=== PATIENT | female | born 1975 | race Caucasian/White ===

== ENCOUNTER → 2020-07-16 13:28 | Outpatient (BNVA) | payer OTHER, SELFPAY | PROVIDERS: PCP Internal Medicine; Visit Provider Advanced Practice Midwife | DX: Z01.419 Encounter for gynecological examination (general) (routine) without abnormal findings (principal); N91.1 Secondary amenorrhea | CPT/HCPCS: 99212 ==

== ENCOUNTER 2020-08-18 15:26 | Outpatient (REF) | payer OTHER, SELFPAY ==
[2020-08-18 16:10] LABS: COVID-19 Test Negative (Negative); IDNOW Serial# 55D5AD1C
== END 2020-08-18 15:27 | disposition home or self-care (01) ==
LOC: HO.LAB 15:26
PROVIDERS: Visit Provider Internal Medicine
DX: Z20.822 Contact with and (suspected) exposure to COVID-19 (principal)
CPT/HCPCS: 36415; 87635; C9803

== ENCOUNTER 2020-08-27 10:42 | Outpatient (REF) | payer OTHER, SELFPAY ==
--- NOTE | ~2020-08-27 | US_ITS ---
[facility] TRANSVAGINAL CLINICAL INFORMATION: Secondary amenorrhea. COMPARISON: Previous pelvic ultrasound October 2012 TECHNIQUE: Transabdominal and transvaginal pelvic ultrasound was performed. Transvaginal exam was performed for better visualization of the uterus and ovaries. FINDINGS: The uterus is variable position depending on the fullness of the bladder. The uterus is normal in size and shape and measures 5.1 x 2.1 x 3.5 cm in dimension. There is a 5 x 3 x 5 mm hyperechoic density in the right posterior uterine body questionable for a small intramural fibroid. No other focal uterine lesion is seen. Endometrial thickness is normal measuring 0.3 cm. The cervix is normal. The right ovary measures 3.6 x 1.6 x 1.5 cm. There is a 3 mm nonspecific echogenic focus in the right ovary. The left ovary has been removed. There is no fluid in the pelvis. US/US transvaginal IMPRESSION: Small echogenic focus in the uterus, question representing a small fibroid and small echogenic focus in the right ovary. The left ovary has been removed.
--- NOTE | ~2020-08-27 | US_ITS ---
EXAMINATION: [facility] COMPLETE US TRANSVAGINAL CLINICAL INFORMATION: Secondary amenorrhea. COMPARISON: Previous pelvic ultrasound October 2012 TECHNIQUE: Transabdominal and transvaginal pelvic ultrasound was performed. Transvaginal exam was performed for better visualization of the uterus and ovaries. FINDINGS: The uterus is variable position depending on the fullness of the bladder. The uterus is normal in size and shape and measures 5.1 x 2.1 x 3.5 cm in dimension. There is a 5 x 3 x 5 mm hyperechoic density in the right posterior uterine body questionable for a small intramural fibroid. No other focal uterine lesion is seen. Endometrial thickness is normal measuring 0.3 cm. The cervix is normal. The right ovary measures 3.6 x 1.6 x 1.5 cm. There is a 3 mm nonspecific echogenic focus in the right ovary. The left ovary has been removed. There is no fluid in the pelvis. US/US pelvic complete IMPRESSION: Small echogenic focus in the uterus, question representing a small fibroid and small echogenic focus in the right ovary. The left ovary has been removed.
== END 2020-08-27 10:43 | disposition home or self-care (01) ==
LOC: HO.US 10:42
PROVIDERS: PCP Internal Medicine; Visit Provider Advanced Practice Midwife
DX: N91.1 Secondary amenorrhea (principal)
CPT/HCPCS: 76830; 76856

== ENCOUNTER 2020-09-01 15:22 | Outpatient (REF) | payer OTHER, SELFPAY ==
[2020-09-01 17:18] LABS: Thyroid Stimulating Hormone 1.91 uIU/mL (0.32-4.0)
[2020-09-02 07:16] LABS: Follicle Stimulating Hormone 31.9 mIU/mL
== END 2020-09-01 15:23 | disposition home or self-care (01) ==
LOC: HO.LAB 15:22
PROVIDERS: PCP Internal Medicine; Visit Provider Advanced Practice Midwife
DX: N91.1 Secondary amenorrhea (principal)
CPT/HCPCS: 36415; 83001; 84443

== ENCOUNTER → 2020-09-03 10:28 | Outpatient (BNVA) | payer OTHER, SELFPAY | PROVIDERS: Visit Provider Advanced Practice Midwife ==

== ENCOUNTER 2020-09-10 13:07 | Outpatient (REF) | payer OTHER, SELFPAY ==
[2020-09-10 15:22] LABS: HCG Quantitative 3 mIU/mL
[2020-09-11 07:27] LABS: Lutenizing Hormone 25.1 mIU/mL; Prolactin 6.4 ng/mL
== END 2020-09-10 13:08 | disposition home or self-care (01) ==
LOC: HO.LAB 13:07
PROVIDERS: PCP Internal Medicine; Visit Provider Obstetrics & Gynecology
DX: N91.1 Secondary amenorrhea (principal); N95.0 Postmenopausal bleeding
CPT/HCPCS: 36415; 83002; 84146; 84702; 99212

== ENCOUNTER → 2020-09-16 11:40 | Outpatient (BNVA) | payer OTHER, SELFPAY | PROVIDERS: PCP Internal Medicine; Visit Provider Obstetrics & Gynecology ==

== ENCOUNTER 2020-09-17 13:23 | Outpatient (REF) | payer OTHER, SELFPAY ==
--- NOTE | ~2020-09-17 | MM_ITS ---
EXAMINATION: MM SCREENING DIGITAL BREAST TOMOSYNTHESIS, BILATERAL CLINICAL INFORMATION: Screening. Asymptomatic. The lifetime risk of breast cancer based on the Tyrer-Cuzick Model is 10.2%. COMPARISON: Mammography: June 03, 2019 and studies dating back to January 25, 2016 TECHNIQUE: Digital breast tomosynthesis is performed in both the craniocaudal and mediolateral oblique views along with computer-aided detection (CAD). Synthesized 2D images are generated from the tomosynthesis. FINDINGS: The breasts are heterogeneously dense, which may obscure small masses (ACR BI-RADS breast composition Category c). There are no significant masses, abnormal calcifications, or other abnormalities. MM/MM tomosynthesis screening BI IMPRESSION: There are no significant changes from prior study. ASSESSMENT: BI-RADS 1: Negative RECOMMENDATION: Routine annual mammography screening. This patient's information was entered into a reminder system with a target due date for their next mammogram.
== END 2020-09-17 13:24 | disposition home or self-care (01) ==
LOC: HO.MAMMO 13:23
PROVIDERS: Visit Provider Obstetrics & Gynecology
DX: Z12.31 Encounter for screening mammogram for malignant neoplasm of breast (principal)
CPT/HCPCS: 77063; 77067

== ENCOUNTER 2021-09-23 12:59 | Outpatient (REF) | payer OTHER, SELFPAY ==
--- NOTE | ~2021-09-23 | MM_ITS ---
EXAMINATION: MM SCREENING DIGITAL BREAST TOMOSYNTHESIS, BILATERAL CLINICAL INFORMATION: Screening. Asymptomatic. The lifetime risk of breast cancer based on the Tyrer-Cuzick Model is 11%. COMPARISON: Mammography: 09/17/2020, 06/03/2019, 04/05/2018 TECHNIQUE: Digital breast tomosynthesis is performed in both the craniocaudal and mediolateral oblique views along with computer-aided detection (CAD). Synthesized 2D images are generated from the tomosynthesis. FINDINGS: There are scattered areas of fibroglandular density (ACR BI-RADS breast composition Category b). There are no significant masses, abnormal calcifications, or other abnormalities. Parenchymal pattern is similar to prior studies. No developing density. No architectural abnormality. No significant changes. MM/MM tomosynthesis screening BI IMPRESSION: No mammographic evidence of malignancy. ASSESSMENT: BI-RADS 1: Negative RECOMMENDATION: Routine annual mammography screening. This patient's information was entered into a reminder system with a target due date for their next mammogram.
== END 2021-09-23 13:00 | disposition home or self-care (01) ==
LOC: HO.MAMMO 12:59
PROVIDERS: PCP Internal Medicine; Visit Provider Internal Medicine
DX: Z12.31 Encounter for screening mammogram for malignant neoplasm of breast (principal)
CPT/HCPCS: 77063; 77067

== ENCOUNTER 2022-08-25 10:51 | Outpatient (REF) | payer OTHER, SELFPAY ==
[2022-08-25 15:14] LABS: CT PCR NOT DETECTED (Not Detect.); NG PCR NOT DETECTED (Not Detect.)
[2022-08-26 08:57] LABS: BV Int Neg Control Negative (Negative); BV Int Pos Control Positive (Positive)
== END 2022-08-25 10:52 | disposition home or self-care (01) ==
LOC: HO.LNP 10:51
PROVIDERS: PCP Internal Medicine; Visit Provider Obstetrics & Gynecology
DX: N89.8 Other specified noninflammatory disorders of vagina (principal)
CPT/HCPCS: 0353U; 87480; 87510; 87660

== ENCOUNTER 2022-09-29 12:37 | Outpatient (REF) | payer OTHER, SELFPAY ==
--- NOTE | ~2022-09-29 | MM_ITS ---
EXAMINATION: MM SCREENING DIGITAL BREAST TOMOSYNTHESIS, BILATERAL CLINICAL INFORMATION: Screening. Asymptomatic. The lifetime risk of breast cancer based on the Tyrer-Cuzick Model is 8%. COMPARISON: Mammography: 09/23/2021, 09/17/2020, 06/03/2019 TECHNIQUE: Digital breast tomosynthesis is performed in both the craniocaudal and mediolateral oblique views along with computer-aided detection (CAD). Synthesized 2D images are generated from the tomosynthesis. FINDINGS: There are scattered areas of fibroglandular density (ACR BI-RADS breast composition Category b). There are no significant masses, abnormal calcifications, or other abnormalities. Parenchymal pattern is similar to prior studies. There is no developing density or architectural abnormality. The axilla and skin contours are unremarkable. No significant changes. MM/MM tomosynthesis screening BI IMPRESSION: No mammographic evidence of malignancy. ASSESSMENT: BI-RADS 1: Negative RECOMMENDATION: Routine annual mammography screening. This patient's information was entered into a reminder system with a target due date for their next mammogram.
== END 2022-09-29 12:38 | disposition home or self-care (01) ==
LOC: HO.MAMMO 12:37
PROVIDERS: PCP Internal Medicine; Visit Provider Internal Medicine
DX: Z12.31 Encounter for screening mammogram for malignant neoplasm of breast (principal)
CPT/HCPCS: 77063; 77067

== ENCOUNTER 2023-01-18 09:27 | Outpatient (AMB) | payer OTHER, SELFPAY ==
[2023-01-18 09:58] VITALS: BP 104/78; BMI 33.3
--- NOTE | 2023-01-18 09:58 | A.OFFVIS_ITS ---
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 The patient was seen few months ago BV panel and GC and chlamydia were negative, was prescribed Terazol 0.8% q.h.s. and Lotrisone cream felt better for few weeks and then the symptoms recurred back. Since then the patient has been using on an of the remainder of the Lotrisone cream and feels better after application of the external cream. No vaginal discharge and no additional symptoms PFSH Medical History Migraine Surgical History Hx of unilateral oophorectomy Hx of section History of hernia surgery Family History Father HTN (hypertension) Diabetes Mother Diabetes HTN (hypertension) Social History Alcohol intake: current Alcohol intake frequency: holidays/special occasions only Gender identity: Female Female Reproductive History Menstrual Age of Menarche: 14 control method: none Date of Mammogram: 09/29/22 Review of Systems Const All systems reviewed & are unremarkable except as noted in HPI and below Physical Exam General: Yes no CVA tenderness External Female Exam: normal external appearance and normal appearance of the urethra Speculum Exam - Vagina: normal appearance of the vagina, normal palpation, no lesions and no masses Speculum Exam - Cervix: normal appearance of the cervix, normal palpation, no lesions, no masses and nontender Bimanual exam- vagina & uterus: normal bimanual exam, normal palpation, uterine size normal, normal palpation, uterine shape normal, No Cervical tenderness present and non-tender Bimanual Exam- Adnexa, other: normal adnexae Back/Spine/Pelvis Back: no CVA tenderness Assessment & Plan Assessment & Plan (1) Vulvovaginal itching: Code(s): L29.2 - Pruritus vulvae Plan: GC/chlamydia with BV panel collected. Discussed with the patient given the fact that her last BV panel did not show any evidence of candidiasis and the patient improved each time she use Lotrisone cream, the diagnosis pointing towards more of allergic dermatitis. Will check GC and chlamydia with BV panel if negative, instructions given the patient to attempt identifying precipitating factor for vulvar contact dermatitis by eliminating different agent in contact with her underwear/laundry/soap or others. All questions answered, the patient verbalized understanding Coding Level of Care Code Est Pt Level 3 (17045) Diagnoses Vulvovaginal itching L29.2
== END 2023-01-18 10:13 | disposition home or self-care (01) ==
PROVIDERS: PCP Internal Medicine; Visit Provider Obstetrics & Gynecology
DX: L29.2 Pruritus vulvae (principal)
CPT/HCPCS: 99213

== ENCOUNTER 2023-01-18 09:27 | Outpatient (REF) | payer OTHER, SELFPAY ==
[2023-01-19 04:51] LABS: CT PCR NOT DETECTED (Not Detect.); NG PCR NOT DETECTED (Not Detect.)
[2023-01-19 11:37] LABS: BV Int Neg Control Negative (Negative); BV Int Pos Control Positive (Positive)
== END 2023-01-18 09:28 | disposition home or self-care (01) ==
LOC: HO.LNP 09:27
PROVIDERS: PCP Internal Medicine; Visit Provider Obstetrics & Gynecology
DX: L29.2 Pruritus vulvae (principal)
CPT/HCPCS: 0353U; 87480; 87510; 87660; 99212

== ENCOUNTER 2023-09-13 09:43 | Outpatient (AMB) | payer OTHER, SELFPAY ==
--- NOTE | 2023-09-13 09:48 | MHC.OFFVIS ---
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 No complaints. Last Pap/HPV was negative in 06/27 Last Mammogram was BI-RADS 1 in 09/27 No previous screening colonoscopy PFSH Medical History Migraine Surgical History Hx of unilateral oophorectomy Hx of section History of hernia surgery Family History Father HTN (hypertension) Diabetes Mother Diabetes HTN (hypertension) Social History Household Members: Family Household Members Other:: Daughter Housing: House Alcohol intake: current Alcohol intake frequency: holidays/special occasions only Patient Tobacco Use Status: Never used Tobacco Current occupational status: unemployed Sexually active: Yes Sexual orientation: Straight/Heterosexual Gender identity: Female Female Reproductive History Menstrual Age of Menarche: 14 Menopause type: natural Total pregnancies: 1 Full term: 1 Number of Living Children: 1 Date of last pap smear: 07/05/19 Date of Mammogram: 09/29/22 Review of Systems Const All systems reviewed & are unremarkable except as noted in HPI and below Card Reports as per HPI Resp Reports as per HPI GI Reports as per HPI and Reports no additional complaints Reports as per HPI Physical Exam Vital Signs: Last Vital Signs BP 124/84 09/13/23 09:49 BMI result Body Mass Index 30.6 Const General: cooperative, healthy appearing and comfortable Chest Chest palpation & inspection: normal inspection of the chest and normal palpation of entire chest wall Breast/axilla inspection: normal inspection of the breasts and normal inspection of the axillae Breast/axilla palpation: normal palpation of the breasts, normal palpation of the axillae and no axillary lymphadenopathy Resp Effort & Inspection: normal respiratory effort Auscultation: clear to auscultation bilaterally Percussion: percussion normal Cardio Palpation: normal PMI Rate: regular rate Rhythm: regular rhythm Heart sounds: no murmurs and no rubs Peripheral pulses: Peripheral pulses 2+ throughout GI Inspection: Yes normal to inspection Palpation (GI): Soft to palpation, nontender, no guarding, not rigid and No hepatosplenomegaly present Percussion: Yes normal to percussion Auscultation: normal bowel sounds Rectal Exam - Female: deferred General: Yes bladder normal to palpation External Female Exam: No lesion Speculum Exam - Vagina: normal appearance of the vagina, normal palpation, normal vaginal discharge and not erythematous Speculum Exam - Cervix: normal appearance of the cervix and normal palpation Bimanual exam- vagina & uterus: normal bimanual exam, normal palpation, uterine size normal, bladder normal to palpation, consistency normal and normal palpation Bimanual Exam- Adnexa, other: normal adnexae, no masses and no tenderness Assessment & Plan Assessment & Plan (1) Well woman exam with routine gynecological exam: Code(s): Z01.419 - Encounter for gynecological examination (general) (routine) without abnormal findings Category: Medical Plan: Cotesting done. Mammogram ordered. Counseled the patient about the recommended dietary allowance of 1000 mg of Calcium & 600 IU of vitamin D. The patient was referred to GI for screening colonoscopy. Instructed the patient to call our office back in case a referral appointment is not scheduled, missed or canceled so that we will assist on rescheduling another appointment, the patient verbalized understanding agreed with the plan. The patient was instructed to perform monthly self-breast exams and to schedule an annual exam in a year; All questions answered and the patient verbalized understanding. Instructed the patient to schedule annual exam in a year Orders: Orders MM tomosynthesis screening BI Today Z12.31 - Encounter for screening mammogram for malignant neoplasm of breast Referrals Gastroenterology Referral Z12.11 - Encounter for screening for malignant neoplasm of colon Coding Level of Care Code Est Pt Prev Care 40-64y(18128) Diagnoses Well woman exam with routine gynecological exam Z01.419
[2023-09-13 09:49] VITALS: BP 124/84; BMI 30.6
== END 2023-09-13 11:33 | disposition home or self-care (01) ==
PROVIDERS: Visit Provider Obstetrics & Gynecology
DX: Z01.419 Encounter for gynecological examination (general) (routine) without abnormal findings (principal)
CPT/HCPCS: 99396

== ENCOUNTER 2023-09-13 09:43 | Outpatient (REF) | payer OTHER, SELFPAY ==
[2023-09-23 03:43] LABS: HPV 16 RNA NOT DETECTED (NOT DETECTED); HPV mRNA E6/E7 rflx Detected (Not Detected)
== END 2023-09-13 09:44 | disposition home or self-care (01) ==
LOC: HO.LNP 09:43
PROVIDERS: Visit Provider Obstetrics & Gynecology
DX: Z01.419 Encounter for gynecological examination (general) (routine) without abnormal findings (principal); Z11.51 Encounter for screening for human papillomavirus (HPV)
CPT/HCPCS: 87624; 87625; 88142; 99396

== ENCOUNTER 2023-10-09 13:44 | Outpatient (REF) | payer OTHER, SELFPAY ==
--- NOTE | ~2023-10-09 | MM_ITS ---
EXAMINATION: MM SCREENING DIGITAL BREAST TOMOSYNTHESIS, BILATERAL CLINICAL INFORMATION: Screening. Asymptomatic. COMPARISON: Mammography: This study is compared with prior exams dating back to 2018. TECHNIQUE: Digital breast tomosynthesis is performed in both the craniocaudal and mediolateral oblique views along with computer-aided detection (CAD). Synthesized 2D images are generated from the tomosynthesis. FINDINGS: There are scattered areas of fibroglandular density (ACR BI-RADS breast composition Category b). There are no significant masses, abnormal calcifications, or other abnormalities. Few, benign, unchanged calcifications are present in each breast. MM/MM tomosynthesis screening BI IMPRESSION: No mammographic evidence of malignancy. ASSESSMENT: BI-RADS BI-RADS 2 - Benign Findings RECOMMENDATION: Routine annual mammography screening. 1 year F/U This examination should not preclude the clinical evaluation of a suspicious palpable abnormality. This patient's information was entered into a reminder system with a target due date for their next mammogram.
== END 2023-10-09 13:45 | disposition home or self-care (01) ==
LOC: HO.MAMMO 13:44
PROVIDERS: PCP Internal Medicine; Visit Provider Obstetrics & Gynecology
DX: Z12.31 Encounter for screening mammogram for malignant neoplasm of breast (principal)
CPT/HCPCS: 77063; 77067

== ENCOUNTER → 2023-10-09 15:00 | Outpatient (BNV) | payer OTHER, SELFPAY | PROVIDERS: PCP Internal Medicine; Visit Provider Radiology Diagnostic Radiology | DX: Z12.31 Encounter for screening mammogram for malignant neoplasm of breast (principal) | CPT/HCPCS: 77063; 77067 ==

== ENCOUNTER 2023-10-12 10:51 | Outpatient (REF) | payer OTHER, SELFPAY | END 2023-10-12 10:52 | disposition home or self-care (01) | LOC: HO.LNP 10:51 | PROVIDERS: PCP Internal Medicine; Visit Provider Obstetrics & Gynecology | DX: R87.610 Atypical squamous cells of undetermined significance on cytologic smear of cervix (ASC-US) (principal); R87.810 Cervical high risk human papillomavirus (HPV) DNA test positive | CPT/HCPCS: 57454; 81025; 88305; 88342; 88360 ==

== ENCOUNTER 2023-10-12 10:51 | Outpatient (AMB) | payer OTHER, SELFPAY ==
[2023-10-12 11:15] VITALS: BP 118/76; BMI 30.4
--- NOTE | 2023-10-12 11:15 | MHC.OFFVIS ---
Vital Signs 10/12/23 11:15 Height 5 ft 5 in Weight 182 lb 15.739 oz BMI 30.4 BP 118/76 Intake Visit Reasons: Colposcopy Suspension Cord Tier Required: No Information Interpreted: non-clinical & clinical Certified Alcohol And Drug Counselor: Certified Alcohol And Drug Counselor Present (Alejandra Nicole DARYL) Accompanied by: Self / Same As Patient Allergies hydrocodone [From Vicodin] Allergy (Mild, Verified 10/12/23 11:24) UNKNOWN latex [Latex] Allergy (Mild, Verified 10/12/23 11:24) RASH carisoprodol Adverse Reaction (Mild, Verified 10/12/23 11:24) NAUSEA & VOMITING, HEADACHES Vicodin Adverse Reaction (Unknown, Uncoded 10/12/23 11:24) vomiting Post menopausal: Yes HPI Comments Details: Presenting for abnormal Pap smear showing [facility] Medical History Migraine Surgical History Hx of unilateral oophorectomy Hx of section History of hernia surgery Family History Father HTN (hypertension) Diabetes Mother Diabetes HTN (hypertension) Social History Household Members: Family Household Members Other:: Daughter Housing: House Alcohol intake: current Alcohol intake frequency: holidays/special occasions only Patient Tobacco Use Status: Never used Tobacco Current occupational status: unemployed Sexual orientation: Straight/Heterosexual Gender identity: Female Female Reproductive History Menstrual Age of Menarche: 14 Physical Exam Vital Signs: BMI result Body Mass Index 30.4 Office Procedures Colposcopy Colposcopy: Pre-Procedure Counseling: Before beginning the procedure, I conducted comprehensive counseling with the patient. We thoroughly discussed the procedure itself, including its details, alternatives, and all associated risks. This included but not limited to the following complications such as bleeding, infection, and injury to the vagina, bladder, and vessels, as well as the potential need for transfusion with all its associated risks. Subsequently, the patient sign the consent. Pap smear result: Ascus/HPV E6/E7 positive, HPV 16/18/45 negative. Urine test in office = Negative Procedure: During the procedure, the following steps were performed: A speculum was inserted, and acetic acid was applied. Colposcopy was conducted, allowing visualization of the transformation zone. Acetowhite lesions were identified at the 9+12+1 o'clock position. Cervical biopsies were obtained from the 9+12+1 o'clock position, followed by an endocervical curettage (ECC). Vaginoscopy of the upper vagina revealed no evidence of aceto-white lesions. Hemostasis was achieved using Monsel solution, and the patient tolerated the procedure well. Post-Procedure Instructions: The patient was advised to promptly contact the office or the after hours answering service or go to the emergency room if experiencing a temperature exceeding 100.4?F, abdominal pain, nausea/vomiting, or bleeding. Additionally, the patient was instructed to abstain from vaginal intercourse and bathtub use. The patient confirmed understanding of these instructions. Discharge Instructions: The patient was instructed to schedule a follow-up appointment in 2 weeks for further evaluation and management. 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 [id number] of cervix including upper vagina with biopsy and ECC Procedure code (CPT) selection complete Results AMB Test Urine AMB Test Urine Negative Last Edit by Alejandra Nicole CMA on 10/12/23 11:25 Assessment & Plan Assessment & Plan (1) ASCUS with positive high risk HPV cervical: Comment: E6 E7 positive, HPV 16/18/45 negative Code(s): R87.610 - Atypical squamous cells of undetermined significance on cytologic smear of cervix (ASC-US); R87.810 - Cervical high risk human papillomavirus (HPV) DNA test positive Category: Medical Plan: Discussed with the patient the result of her abnormal pap, its significance, risk of progression, persistence, and regression. the false positive/negative rate of a Pap smear as a screening test in detecting cervical cancer and the indication for a diagnostic test -colposcopy, biopsy, endocervical curettage. The patient verbalized understanding and agreed with the plan, all questions answered. Colposcopy done, see procedure note Orders: Orders AMB HCG Urine Test Today Z32.02 - Encounter for test, result negative AMB Colposcopy Today R87.610 - Atypical squamous cells of undetermined significance on cytologic smear of cervix (ASC-US), R87.810 - Cervical high risk human papillomavirus (HPV) DNA test positive Coding Level of Care Code Procedure Only Diagnoses ASCUS with positive high risk HPV cervical R87.610; R87.810 CPT Codes Colposcopy - CPT: 51401-[id number] of cervix including upper vagina with biopsy and ECC ([id number])
== END 2023-10-12 11:36 | disposition home or self-care (01) ==
PROVIDERS: PCP Internal Medicine; Visit Provider Obstetrics & Gynecology
DX: R87.610 Atypical squamous cells of undetermined significance on cytologic smear of cervix (ASC-US) (principal); R87.810 Cervical high risk human papillomavirus (HPV) DNA test positive; Z32.02 Encounter for pregnancy test, result negative
CPT/HCPCS: 57454

== ENCOUNTER 2023-11-08 08:50 | Outpatient (AMB) | payer OTHER, SELFPAY ==
--- NOTE | 2023-11-08 08:52 | A.OFFVIS_ITS ---
Vital Signs 11/08/23 08:58 Height 5 ft 5 in Weight 184 lb 4.903 oz BMI 30.7 BP 116/62 Blood Pressure Location Rt brachial Position Sitting Pulse 90 Pulse Source Pulse Oximeter Pulse Oximetry (%) 95 Oxygen Delivery Method Room Air Intake Visit Reasons: Colonoscopy SCreening Intake Note: Kary presents in office today for a scheduled routine colo s/p scrn. CC; Kary was referred by OBGYN (Kami). Pt denies any sx or significant concerns at this time. \ Pt denies any previous hx of colo or egd s/p. 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 female past medical history of asthma is here today for pre colonoscopy screening.? Patient was sent to us by her PCP.? This is her first colonoscopy screening.? Patient denies any gastrointestinal symptoms in the past or at present.? Denies any personal or family history of gastrointestinal disease, colon polyps, or CRC.? Denies history of difficulty with sedation or anesthesia in the past.? Negative for history of sleep apnea.? Denies any history of cardiac, renal, pulmonary, or hepatic disease.?? No history of infectious? diseases like hepatitis A, B, C, HIV or tuberculosis.? Patient is not on any anticoagulation [facility] Medical History Migraine Surgical History Hx of unilateral oophorectomy Hx of section History of hernia surgery Family History Father HTN (hypertension) Diabetes Mother Diabetes HTN (hypertension) Social History Household Members: Family Household Members Other:: Daughter Housing: House Alcohol intake: current Alcohol intake frequency: holidays/special occasions only Patient Tobacco Use Status: Never used Tobacco Current occupational status: unemployed Sexual orientation: Straight/Heterosexual Gender identity: Female Female Reproductive History Menstrual Age of Menarche: 14 Review of Systems Const Denies weight gain and Denies weight loss ENT Reports no additional complaints, Denies dysphagia and Denies odynophagia Card Reports no additional complaints Resp Reports no additional complaints GI Denies abdominal pain, Denies belching, Denies melena, Denies bloating, Denies change in bowel habits, Denies dysphagia, Denies excessive flatus, Denies dyspepsia, Denies heartburn, Denies diarrhea, Denies loose stools, Denies nausea, Denies odynophagia and Denies vomiting Musc Reports no additional complaints Neuro Reports no additional complaints Psych Reports no additional complaints Endo Reports no additional complaints Physical Exam Const General: healthy appearing and no acute distress Nutritional Appearance: obese Orientation/consciousness: patient oriented x3 Resp Effort & Inspection: normal respiratory effort, able to speak in complete sentences, no tracheal deviation and symmetric chest movement Auscultation: clear to auscultation bilaterally Cardio Rate: regular rate GI Inspection: Yes normal to inspection, No distended and Yes obesity Palpation (GI): Soft to palpation, not firm, nontender and No hepatosplenomegaly present Auscultation: normal bowel sounds General: Yes no CVA tenderness Back/Spine/Pelvis Back: no CVA tenderness Skin General skin exam: elasticity normal, turgor normal and dry skin Neuro General: patient oriented x3 Psych Appearance: grossly normal Mental Status: mental status grossly normal Assessment & Plan Assessment & Plan (1) Colon cancer screening: Code(s): Z12.11 - Encounter for screening for malignant neoplasm of colon Category: Medical Plan Patient denies any GI, cardiac or respiratory symptoms.? Denies any issues with anesthesia in the past.? Denies any history of sleep apnea.? No history infectious diseases in the past or present.? Not on any anticoagulation therapy.? No family or personal history of colon cancer or polyps.? Patient denies melena, hematochezia, unintentional weight loss or ribbon like stools.? Discussed at length the pre-procedure,? prep, diet & medications as well as what to expect prior, during and after the procedure.?? Stressed the importance of good bowel prep.? Recommended the use of Vaseline or Calmoseptine OTC & baby wipes with bowel movements to promote comfort.? ?Patient verbalizes understanding and agrees to plan of care.? She was given the opportunity to ask questions and all questions answered.? We will see her after the procedure.? Medications: New bisacodyl (Dulcolax (bisacodyl)) take 4 tabs at noon the day before your colonoscopy 20 mg (4 x 5 mg) PO ONCE 1 day 4 tabs 0RF Z12.11 - Encounter for screening for malignant neoplasm of colon polyethylene glycol 3350 (Miralax) As directed by gastroenterology department at [facility] 238 grams PO ONCE 238 grams 0RF Z12.11 - Encounter for screening for malignant neoplasm of colon Coding Level of Care Code New Pt Level 3 (97556) Diagnoses Colon cancer screening Z12.11 Time Spent (min) 40 Comment 30 minutes spent with patient and additional 10 minutes spent reviewing her records
[2023-11-08 08:58] VITALS: BP 116/62; PULSE 90; O2SAT 95; BMI 30.7
== END 2023-11-08 09:44 | disposition home or self-care (01) ==
PROVIDERS: PCP Internal Medicine; Visit Provider Nurse Practitioner Family
DX: Z12.11 Encounter for screening for malignant neoplasm of colon (principal); Z01.818 Encounter for other preprocedural examination
CPT/HCPCS: 99203

== ENCOUNTER → 2023-11-08 08:50 | Outpatient (BNVA) | payer OTHER, SELFPAY | PROVIDERS: PCP Internal Medicine; Visit Provider Nurse Practitioner Family | DX: Z01.818 Encounter for other preprocedural examination (principal) | CPT/HCPCS: 99202 ==

== ENCOUNTER 2023-11-22 10:49 | Outpatient (AMB) | payer OTHER, SELFPAY ==
--- NOTE | 2023-11-22 11:39 | MHC.OFFVIS ---
Intake Visit Reasons: Colpo Results Allergies hydrocodone [From Vicodin] Allergy (Mild, Verified 11/08/23 08:57) UNKNOWN latex [Latex] Allergy (Mild, Verified 11/08/23 08:57) RASH carisoprodol Adverse Reaction (Mild, Verified 11/08/23 08:57) NAUSEA & VOMITING, HEADACHES Vicodin Adverse Reaction (Unknown, Uncoded 10/12/23 11:24) vomiting HPI Comments Details: Presenting post colpo for follow-up. The patient is doing well with no complaints. The pathology showed the following: A. Endocervix, curettage: Endocervical glandular mucosa and focal squamous epithelium with atrophy and scant focal atypia, not present on deeper levels. B. Cervix, 1:00, biopsy: Squamous mucosa with atrophy and reactive changes; no endocervical glandular component present. C. Cervix, 9:00, biopsy: Endocervical glandular and squamous mucosa with atrophy and reactive changes; negative for dysplasia D. Cervix, 12:00, biopsy: Scant endocervical glandular epithelium and mucus; negative for dysplasia. [facility] Medical History Migraine Surgical History Hx of unilateral oophorectomy Hx of section History of hernia surgery Family History Father HTN (hypertension) Diabetes Mother Diabetes HTN (hypertension) Social History Household Members: Family Household Members Other:: Daughter Housing: House Alcohol intake: current Alcohol intake frequency: holidays/special occasions only Patient Tobacco Use Status: Never used Tobacco Current occupational status: unemployed Sexual orientation: Straight/Heterosexual Gender identity: Female Female Reproductive History Menstrual Age of Menarche: 14 Review of Systems Const All systems reviewed & are unremarkable except as noted in HPI and below Reports as per HPI and Reports no additional complaints GI Reports no additional complaints Reports no additional complaints Assessment & Plan Assessment & Plan (1) ASCUS with positive high risk HPV cervical: Comment: E6 E7 positive, HPV 16/18/45 negative Code(s): R87.610 - Atypical squamous cells of undetermined significance on cytologic smear of cervix (ASC-US); R87.810 - Cervical high risk human papillomavirus (HPV) DNA test positive Category: Medical Plan: Discussed with the patient the pathology results of the colposcopy biopsies & endocervical curettage ( neg). Discussed with the patient the sensitivity specificity, positive and negative predictive value in detecting cervical cancer in addition discussed the regression, persistence and progression rates. Recommended co-testing in 12 months, if cytology and or HPV are abnormal will proceed was colposcopy biopsy and endocervical curettage. Instructions given to the patient to schedule a co test appointment in 1 year. All questions answered the patient verbalized understanding. Coding Level of Care Code Est Pt Level 3 (80706) Diagnoses ASCUS with positive high risk HPV cervical R87.610; R87.810
== END 2023-11-22 12:00 | disposition home or self-care (01) ==
PROVIDERS: PCP Internal Medicine; Visit Provider Obstetrics & Gynecology
DX: R87.610 Atypical squamous cells of undetermined significance on cytologic smear of cervix (ASC-US) (principal); R87.810 Cervical high risk human papillomavirus (HPV) DNA test positive
CPT/HCPCS: 99213

== ENCOUNTER → 2023-11-22 10:49 | Outpatient (BNVA) | payer OTHER, SELFPAY | PROVIDERS: PCP Internal Medicine; Visit Provider Obstetrics & Gynecology | DX: R87.610 Atypical squamous cells of undetermined significance on cytologic smear of cervix (ASC-US) (principal); R87.810 Cervical high risk human papillomavirus (HPV) DNA test positive | CPT/HCPCS: 99212 ==

== ENCOUNTER 2024-05-13 14:37 | Outpatient (AMB) | payer OTHER, SELFPAY ==
--- NOTE | 2024-05-13 14:44 | MHC.PC.OV ---
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 Accompanied by: Self / Same As Patient Allergies hydrocodone [From Vicodin] Allergy (Mild, Verified 05/13/24 14:58) UNKNOWN latex [Latex] Allergy (Mild, Verified 05/13/24 14:58) RASH carisoprodol Adverse Reaction (Mild, Verified 05/13/24 14:58) NAUSEA & VOMITING, HEADACHES Vicodin Adverse Reaction (Unknown, Uncoded 05/13/24 14:58) vomiting Medication List - Last Reconciled 05/13/24 by Erendira Prescott MD bisacodyl (Dulcolax (bisacodyl)) 20 mg (4 x 5 mg) PO ONCE 1 day calcium carbonate (Calcium 500) 500 mg PO DAILY cholecalciferol (vitamin D3) 10 mcg PO DAILY clotrimazole-betamethasone 1-0.05 % 1 appl topical BID 5 days collagen,hydrolyz-ascorbate Ca 1 gram- 10 mg tabs PO omega 9-ppd-hxs-fish oil 1,000 (120-180) mg (Fish Oil) 1 cap PO DAILY polyethylene glycol 3350 (Miralax) 238 grams PO ONCE Tobacco use date assessed: 05/13/24 Dental Screening Dental Screen Date: 05/13/24 Did you have a dental visit in the last 12 months?: Yes Did you have a dental problem in the last 6 months where you did not have access to dental care?: No Was dental information given to patient?: Patient has dentist HPI HPI Comments History of Present Illness Details The patient is a 48-year-old female presenting with back pain and concern for sciatica. She reports that the pain has been present for approximately one year and has progressively worsened, especially with walking. She describes the pain as starting after exercise, predominantly affecting the lower back and radiating to the right leg, with a possible pinching sensation in the buttocks. The pain is sometimes accompanied by numbness in the leg. The patient recalls a history of bulging and herniated discs from an injury over 18 years ago. She does not take pain medication, as previous options have not been effective. She also notes that lying flat on her back exacerbates the pain, and sometimes, it affects her neck. Additionally, she has canceled a previously scheduled colonoscopy due to anxiety about the procedure but has elected to proceed with a Cologuard test. She mentions dribbling when consuming sweets, which she attributes to familial diabetes tendencies. The patient has been actively working to reduce weight, which she attributes to diet and exercise adjustments. [facility] Medical History (Updated 05/13/24 @ 15:17 by Erendira Prescott MD) Migraine Surgical History Hx of unilateral oophorectomy Hx of section History of hernia surgery Family History Father HTN (hypertension) Diabetes Mother Diabetes HTN (hypertension) Social History Household Members: Family Household Members Other:: Daughter Housing: House Alcohol intake: current Alcohol intake frequency: holidays/special occasions only Patient Tobacco Use Status: Never used Tobacco e-Cigarette/Vaping Use: Never Used service: No Current occupational status: unemployed Sexual orientation: Straight/Heterosexual Gender identity: Female Cognitive needs: No Hearing needs: No Vision needs: No Female Reproductive History Menstrual Age of Menarche: 14 Questionnaire PHQ-9 Over the last 2 weeks, how often have you been bothered by any of the following problems? 1. Little interest or pleasure in doing things: not at all 2. Feeling down, depressed, or hopeless: not at all 3. Trouble falling or staying asleep, or sleeping too much: not at all 4. Feeling tired or having little energy: not at all 5. Poor appetite or overeating: not at all 6. Feeling bad about yourself - or that you are a failure or have let yourself or your family down: not at all 7. Trouble concentrating on things, such as reading the newspaper or watching television: not at all 8. Moving or speaking so slowly that other people could have noticed. Or the opposite - being so fidgety or restless that you have been moving around a lot more than usual: not at all 9. Thoughts that you would be better off or of hurting yourself in some way: not at all Total score: 0 Depression Screening Interpretation: Negative Depression Screening Done: Yes 10206 - PHQ-9 Billing: Yes Source: Developed by Drs. Dedrick Schaefer, Sobeida Agustin, Harshad La and colleagues, with an educational annabella from [employer] Thrive Questionnaire Date Thrive assessed: 05/13/24 I am a: Patient What is your living situation today?: I have a steady place to live Within the past 12 months, did the food you bought not last and you didn't have the money to get more?: Never true Within the past 12 months, did you worry whether your food would run out before you got money to buy more?: Never true Do you have trouble paying for medicines?: No Do you have trouble getting transportation to medical appointments?: No Do you have trouble paying your heating and electricity bill?: No Do you have trouble taking care of your child, family member or friend?: No Do you have trouble with day-to-day activities such as bathing, preparing meals, shopping, managing finances, etc.?: No Are you currently unemployed and looking for a job?: No Are you interested in more education?: No Please select the resources that you would like help with: None Currently or been in a relationship where the following occur: No concerns reported THRIVE Score: 0 AUDIT C Alcohol Use Questionnaire (AUDIT-C) 1. How often do you have a drink containing alcohol?: Monthly or less 2. How many drinks containing alcohol do you have on a typical day when you are drinking?: 1 or 2 3. How often do you have six or more drinks on one occasion?: Never Total Score: 1 ADDISON-7 AMB Questionnaire ADDISON-7 Date ADDISON - 7 assessed: 05/13/24 Feeling nervous, anxious, or on edge: 0 = Not at all Not being able to stop or control worryin = Not at all Worrying too much about different things: 0 = Not at all Trouble relaxin = Not at all Being so restless that it is hard to sit still: 0 = Not at all Becoming easily annoyed or irritable: 0 = Not at all Feeling afraid as if something awful might happen: 0 = Not at all Total ADDISON-7 score (0-4 normal; 5-9 mild; 10-14 moderate; 15-21 severe): 0 Source: Developed by Drs. Dedrick Schaefer, Sobeida Agustin, Harshad La and colleagues, with an educational annabella from [employer] ADDISON-7 Assessment Billing ADDISON-7 Assessment Tool: ADDISON-7 Assessment 89655 Review of Systems Const Details: - Musculoskeletal: Reports back pain, right leg pain, and numbness. Denies prior falls. - Neurological: Reports tingling in fingers, feet, and episodes of visual disturbances/presyncope. - Genitourinary: Reports bladder dribbling after consuming sweets. - Gastrointestinal: Denies family history of colon cancer. Physical exam (Primary Care) Vital Signs: Last Vital Signs Pulse 92 05/13/24 14:47 BP 116/60 05/13/24 14:47 Pulse Ox 97 05/13/24 14:47 Oxygen Delivery Method Room Air 05/13/24 14:47 BMI result Body Mass Index 29.1 Tobacco/Smoking Status: Tobacco use Status Patient Tobacco Use Status Never used Tobacco 05/13/24 14:44 Depression Screening Interpretation: Negative Currently or been in a relationship where the following occur: No concerns reported Const Other: General: No confusion Neck: Normal visual inspection and Yes supple, full movement on the neck, but sometimes feels warm and tightens Respiratory: Normal respiratory effort, clear to auscultation bilaterally Cardiovascular: No jugular venous distension, regular rate, regular rhythm, S1 normal heart sound present and S2 normal heart sound present Neurology: Patient oriented x3, no focal motor deficits and No confusion Extremities: Full ROM, but right leg more tense, possible sciatic nerve involvement, tingling in fingers and feet, straight leg test positive bilaterally Office Procedures Flu Questionnaire Does the patient have a severe egg allergy?: No Immunizations Fluarix Triv [id number] (PF) 45 mcg (15 mcg x 3)/0.5 mL IM syringe Performing Provider: Erendira Prescott MD [facility] Documented (not given) by: EROS Boo on 05/13/24 14:55 Reason Not Given: Patient Refused Coding Level of Care Code Est Pt Level 4 (23790) Complex EM visit Add On G2211 Diagnoses Neck pain M54.2 Bilateral sciatica M54.31; M54.32 Urge urinary incontinence N39.41 Colon cancer screening Z12.11 Additional Codes PHQ-9 - 85804 - PHQ-9 Billing: Yes ([id number]) ADDISON-7 Assessment Billing - ADDISON-7 Assessment Tool: ADDISON-7 Assessment 46482 ([id number]) Time Spent (min) 21 Assessment & Plan Assessment & Plan (1) Neck pain: Code(s): M54.2 - Cervicalgia Category: Medical (2) Bilateral sciatica: Code(s): M54.31 - Sciatica, right side; M54.32 - Sciatica, left side Category: Medical (3) Urge urinary incontinence: Code(s): N39.41 - Urge incontinence Category: Medical (4) Colon cancer screening: Code(s): Z12.11 - Encounter for screening for malignant neoplasm of colon Category: Medical Plan - Proceed with the Cologuard test in place of colonoscopy. - Order lumbar spine X-rays. - Begin physical therapy for back pain management. - Referral to pain management for non-medicinal pain strategies. - Urology referral for evaluation of bladder control issues. - Order blood work to screen for cholesterol, diabetes, and related parameters. Patient was informed and verbally consented to the use of an ambient scribe for clinic note documentation during this visit. During the visit, I explained the management strategies for her back pain and sciatica concerns. I recommended physical therapy, which has previously provided relief to the patient, as well as X-rays to evaluate the health of the lumbar spine. While she is hesitant about medication, I discussed the necessity of attempting standard pain relief options like Tylenol and documented this effort for insurance purposes. The potential for non-medicinal pain interventions through pain management was highlighted. We discussed replacing the colonoscopy with a Cologuard test, and I arranged for a referral to urology to address her bladder concerns. Blood work planning was explained, emphasizing the importance of monitoring due to her familial diabetes background. Orders: Orders Influenza [id number] Immunization Today Z23 - Encounter for immunization Lipid Panel Today E78.5 - Hyperlipidemia, unspecified Comprehensive [place]. Panel Fast Today M54.31 - Sciatica, right side, M54.32 - Sciatica, left side Complete Blood Count Auto Diff Today M54.31 - Sciatica, right side, M54.32 - Sciatica, left side XR lumbar spine 2-3V Today M54.31 - Sciatica, right side, M54.32 - Sciatica, left side PT Evaluation and Treatment Today M54.31 - Sciatica, right side, M54.32 - Sciatica, left side XR cervical spine 2V Today M54.2 - Cervicalgia Referrals Urology Referral N39.41 - Urge incontinence Cologuard Test Z12.11 - Encounter for screening for malignant neoplasm of colon, Z12.12 - Encounter for screening for malignant neoplasm of rectum Pain Management Referral M54.31 - Sciatica, right side, M54.32 - Sciatica, left side Patient Instructions: - Complete the Cologuard test within the next three months. - Attend physical therapy sessions as scheduled. - Follow up with the referred urology specialist as appointments are made. - Maintain the current exercise and diet regimen to support weight management. - Seek medical attention if back pain significantly worsens or if new symptoms arise. - Monitor for changes in bladder control, particularly following sweet consumption.
[2024-05-13 14:47] VITALS: BP 116/60; PULSE 92; O2SAT 97; BMI 29.1
== END 2024-05-13 15:14 | disposition home or self-care (01) ==
PROVIDERS: PCP Internal Medicine; Visit Provider Internal Medicine
DX: M54.2 Cervicalgia (principal); M54.31 Sciatica, right side; M54.32 Sciatica, left side; N39.41 Urge incontinence; Z12.11 Encounter for screening for malignant neoplasm of colon; Z23 Encounter for immunization

== ENCOUNTER → 2024-05-13 14:37 | Outpatient (BNVA) | payer OTHER, SELFPAY | PROVIDERS: PCP Internal Medicine; Visit Provider Internal Medicine | DX: M54.2 Cervicalgia (principal); M54.31 Sciatica, right side; M54.32 Sciatica, left side; N39.41 Urge incontinence; E78.5 Hyperlipidemia, unspecified; Z28.21 Immunization not carried out because of patient refusal | CPT/HCPCS: 90471; 96127; 99212 ==

== ENCOUNTER 2024-05-23 10:04 | Outpatient (AMB) | payer OTHER, SELFPAY ==
--- NOTE | 2024-05-23 11:07 | A.OFFVIS_ITS ---
Vital Signs 05/23/24 11:15 Height 5 ft 5 in Weight 175 lb BMI 29.1 BP 130/72 Blood Pressure Location Rt brachial Position Sitting Pulse 91 Pulse Source Pulse Oximeter Pulse Oximetry (%) 98 Oxygen Delivery Method Room Air Intake Visit Reasons: Sciatica, right/left side urgent reff Intake Note: Pain today 08/15 X Ray Developer Required: No Accompanied by: Self / Same As Patient Allergies hydrocodone [From Vicodin] Allergy (Mild, Verified 05/23/24 11:14) UNKNOWN latex [Latex] Allergy (Mild, Verified 05/23/24 11:14) RASH carisoprodol Adverse Reaction (Mild, Verified 05/23/24 11:14) NAUSEA & VOMITING, HEADACHES Vicodin Adverse Reaction (Unknown, Uncoded 05/13/24 14:58) vomiting HPI HPI Sciatica, right/left side urgent reff: Details: Patient is a pleasant 48-year-old female with history of L4-L5 bulging and herniated disc due to injury in 2005 work related injury, chronic low back and neck pain, migraine headaches, asthma, ovarian cysts, presents today for initial evaluation of neck pain, low back pain and right hip pain. Denies any recent trauma, injury, or falls. Patient reports increased lower back pain with radiation into her right buttock and right hip and into right anterior thigh with associated numbness and burning sensations, especially while exercising. Neck pain is axial and also radiates upper extremities with associated parasthesias in tingling, right worse than the left arm. Patient reports intermittent episodes or visual disturbances, burning sensations in her head, and my head blacks out and close up feeling with intense exercise. Reports increasing migraine and tension headaches with neck symptoms. Pain affects her daily activities and functioning, mobility, ROM, sleep, and social interactions. She completed physical therapy in 2005. Currently she cannot pursue formal PT or home exercises due to significant exacerbation of neck and back pain with movements and ADLs. Denies any fever or chills, shortness of breaths, cough, chest pain, shoulder pain, weakness, footdrop, bladder or bowel dysfunction, or saddle anesthesia. Oswestry Low Back Pain Disability=21 (moderate disability) Location: Lower back with radiculopathy, right hip Duration: Chronic pain, worsening for past 6 months Characteristics of symptom or complaint: Throbbing, pinching, burning, tingling , shooting, RLE numbness, stabbing Aggravating or associated factors: Prolonged walking or standing, laying flat, sleeping, ADLs, cold weather Relieving factors: Rest, sitting, Tylenol, Ibuprofen, nabumethone, heat Treatment: PT- 2005 [facility] Medical History (Updated 05/23/24 @ 11:40 by ROC Guerra) Migraine Surgical History Hx of unilateral oophorectomy Hx of section History of hernia surgery Family History Father HTN (hypertension) Diabetes Mother Diabetes HTN (hypertension) Social History Household Members: Family Household Members Other:: Daughter Housing: House Alcohol intake: current Alcohol intake frequency: holidays/special occasions only Patient Tobacco Use Status: Never used Tobacco e-Cigarette/Vaping Use: Never Used service: No Current occupational status: unemployed Sexual orientation: Straight/Heterosexual Gender identity: Female Cognitive needs: No Hearing needs: No Vision needs: No Female Reproductive History Menstrual Age of Menarche: 14 Review of Systems Const All systems reviewed & are unremarkable except as noted in HPI and below Physical Exam Vital Signs: Last Vital Signs Pulse 91 05/23/24 11:15 BP 130/72 05/23/24 11:15 Pulse Ox 98 05/23/24 11:15 Oxygen Delivery Method Room Air 05/23/24 11:15 BMI result Body Mass Index 29.1 General: Appears afebrile. Alert and oriented. Mood and affect appropriate. Follows and participates in conversation appropriately. Respiratory effort is unlabored. No cough. Able to transition from sit to stand unassisted. Ambulates with bilaterally normal heel strike and toe off. Neck Other: Patient with decreased cervical ROM in all planes/especially with left lateral rotation. Reports increased pain with cervical extension and flexion. Spurling compression test is negative. Pain is unchanged by Spurling maneuver with retraction. Elvey's tension test positive bilaterally, worse on the left, with radiation of pain from neck to lower arm with tingling. Lhermitte's test was negative. DTR intact, slightly diminished on the left. Patient demonstrated 5/5 motor strength of bilateral upper extremities. 2 + radial pulses. Moderate TTP throughout bilateral upper trapezius muscles. No paravertebral tenderness over facet joints bilaterally. Neck: Yes normal visual inspection, Yes no lymphadenopathy, Yes supple, No anterior neck swelling, No torticollis, Yes no JVD, No prominent supraclavicular fat pad and Yes prominent dorsocervical fat pad General: Yes no CVA tenderness Back/Spine/Pelvis Other: Patient is able to walk and stand on heels and tip toes with mild difficulty on the right otherwise demonstrating good motor tone. No limping. Can flex forward to 70-75 degrees and extend to 5-10 degrees before experiencing lumbar pain. Demonstrates 5/5 strength of quadriceps bilaterally as well as flexion/dorsifle xion of bilateral feet against resistance. 2+ pedal pulses bilaterally. Straight leg rise with dorsiflexion is negative bilaterally. +2 patellar and achilles reflexes bilaterally. Facet loading test positive bilaterally. Joseph sign, Cornelius?s, Gaenslen, Pelvic compression and Stinchfield tests are positive on the right, equivocal on the left. Mild groin pain with I/E hip rotations on the right. Valsalva maneuver is negative. Back: no CVA tenderness Cervical Spine: normal cervical lordosis, cervical muscular tenderness, pain with cervical ROM, No Cervical spine scars present, cervical spasm, No Cervical spine tenderness and No step off deformity Thoracic/Lumbar Spine: thoracic and lumbar spine normal to inspection, No Thoracic/lumbar spine scar(s), Lasegue's sign negative, straight leg raise negative bilaterally, pain with thoraco-lumbar ROM, paraspinal muscle tenderness, No thoracic spinal tenderness and lumbar spinal tenderness (L3-S1) Pelvis: buttock tenderness on the right and no sciatic notch tenderness Sacroiliac joints: bilaterally (right>left) tender to palpation Extrem General: Yes capillary refill normal, Yes no clubbing, cyanosis or edema and Yes no calf tenderness Results Reviewed Results Reviewed: No imaging reports to review. Assessment & Plan Assessment & Plan (1) Right hip pain: Code(s): M25.551 - Pain in right hip Category: Medical (2) Cervical spondylosis with radiculopathy: Code(s): M47.22 - Other spondylosis with radiculopathy, cervical region Category: Medical (3) Muscle spasms of neck: Code(s): M62.838 - Other muscle spasm Category: Medical (4) Migraine: Code(s): G43.909 - Migraine, unspecified, not intractable, without status migrainosus Category: Medical (5) Degenerative disc disease, cervical: Code(s): M50.30 - Other cervical disc degeneration, unspecified cervical region Category: Medical Plan Patient was reminded to complete lumbar and cervical spine imaging which were ordered by her PCP, she will complete these today to assess degree of degenerative changes, any subluxation, listhesis, compression fractures or pars defects. We will add flexion and extension view on her cervical spine and right hip imaging. Discussed interventional treatments for axial low back pain, right sacroiliac joint pain and cervical spine pain with radiculopathy and worsening migraine headaches with episodes of losing balance. We will also obtain MRI of the cervical spine to assess for neural integrity and compression to address her neck concerns prior to interventional treatments. Tentatively plan for right therapeutic SI joint injection with local and fluoroscopy. Expectations, risks and benefits were reviewed. Giving significant pain with movements, range of motions, daily activities and sleep patient is not able to pursue formal physical therapy or home exercise at this time. We discussed importance of daily physical activity with gentle stretching exercises, adequate hydration, well-balanced diet with weight optimization, sleep hygiene, good posture and avoiding known migraine triggers. All questions and concerns answered and patient agreed with the treatment plan. Follow-up for x-rays/MRI results and sooner as needed. Orders: Orders XR cervical spine min 6V 05/23/24 M47.22 - Other spondylosis with radiculopathy, cervical region, M62.838 - Other muscle spasm XR hip RT w PEL 1V 05/23/24 M25.551 - Pain in right hip MR cervical spine wo con 05/23/24 G43.909 - Migraine, unspecified, not intra ctable, without status migrainosus, M47.22 - Other spondylosis with radiculopathy, cervical region, M50.30 - Other cervical disc degeneration, unspecified cervical region Coding Level of Care Code New Pt Level 4 (93337) Complex EM visit Add On G2211 Diagnoses Right hip pain M25.551 Cervical spondylosis with radiculopathy M47.22 Muscle spasms of neck M62.838 Migraine G43.909 Degenerative disc disease, cervical M50.30
[2024-05-23 11:15] VITALS: BP 130/72; PULSE 91; O2SAT 98; BMI 29.1
== END 2024-05-23 11:53 | disposition home or self-care (01) ==
PROVIDERS: PCP Internal Medicine; Referring Provider Internal Medicine; Visit Provider Nurse Practitioner Family
DX: M25.551 Pain in right hip (principal); M47.22 Other spondylosis with radiculopathy, cervical region; M62.838 Other muscle spasm; G43.909 Migraine, unspecified, not intractable, without status migrainosus; M50.30 Other cervical disc degeneration, unspecified cervical region
CPT/HCPCS: 99204; G2211

== ENCOUNTER → 2024-05-23 10:04 | Outpatient (BNVA) | payer OTHER, SELFPAY | PROVIDERS: PCP Internal Medicine; Referring Provider Internal Medicine; Visit Provider Nurse Practitioner Family ==

== ENCOUNTER 2024-05-23 10:34 | Outpatient (REF) | payer OTHER, SELFPAY ==
--- NOTE | ~2024-05-23 | XR_ITS ---
EXAMINATION: XR CERVICAL SPINE CLINICAL INFORMATION: M47.22 - Other spondylosis with radiculopathy, cervical region COMPARISON: None available. TECHNIQUE: 6 views of the cervical spine, inclusive of flexion and extension views, were obtained. FINDINGS: There is maintained cervical lordosis. There is mild loss of C4-C5, C5-6 and C6-C7 disc heights with mild ventral spondylosis. There is bilateral moderate narrowing of C4-5 and C5-6 neural foramina from uncovertebral hypertrophic changes. No visible acute fracture, dislocation or subluxation seen. The prevertebral soft tissues are normal. XR/XR cervical spine min 6V IMPRESSION: Degenerative disc changes C4-C5, C5-6 and C6/7 disc levels with ventral spondylosis. Moderate bilateral neural foraminal narrowing at C4-5 and C5-6 disc levels from uncovertebral hypertrophic changes. Electronically signed by: Ameya Branch MD 05/23/2024 03:14 PM [facility] [place]
--- NOTE | ~2024-05-23 | XR_ITS ---
EXAMINATION: Right hip and pelvis. CLINICAL INDICATION: Pain in right hip. COMPARISON: None. TECHNIQUE: AP pelvis one view. Right hip 2 views. FINDINGS: AP pelvis: There is normal bilateral hip joint and SI joint space. No bony erosive changes. No visible fracture, dislocation seen. The pelvic bones are normal. The soft tissues are normal. AP and frog-leg views right hip reveal normal joint space. No bony erosive changes or loose bodies seen. No enthesophytes. The soft tissues are normal. XR/XR hip RT w PEL 1V IMPRESSION: Unremarkable AP pelvis and right hip exam. Electronically signed by: Ameya Branch MD 05/23/2024 03:15 PM EST
--- NOTE | ~2024-05-23 | XR_ITS ---
EXAMINATION: XR LUMBOSACRAL SPINE CLINICAL INFORMATION: M54.31 - Sciatica, right side COMPARISON: None available. TECHNIQUE: Three views of the lumbosacral spine. FINDINGS: The vertebral bodies and posterior elements are normal. There is mild loss of L4-5 disc height. Rest the disc heights, vertebral heights and alignment appears preserved. Mild right L5-S1 and L4-5 facet joint arthropathy and hypertrophy. Mild ventral L2-3 and posterior L3-4 spondylosis is noted. No lytic or sclerotic process seen. The paravertebral soft tissues are normal. SI joints are symmetrical and normal.. XR/XR lumbar spine 2-3V IMPRESSION: Mild right L4-5 and L5-S1 facet joint arthropathy and hypertrophy. Mild degenerative L4-5 disc changes Electronically signed by: Ameya Branch MD 05/23/2024 03:12 PM [facility]
[2024-05-23 12:49] LABS: MANUAL DIFF FLAG NO
[2024-05-23 13:15] LABS: Basophils Percent Auto 0.4 % (0-2); Eosinophils Absolute Auto 0.1 X10*3/uL (0.0-0.4); Eosinophils Percent Auto 1.4 % (0-4); Hematocrit 42.9 % (37.0-47.0); Hemoglobin 14.3 g/dl (12.0-16.0); Imm Gran Abs Auto 0.02 X10*3/uL (0.00-0.03); Imm Gran Pct Auto 0.3 % (0.0-0.4); Lymphocytes Absolute Auto 2.3 X10*3/uL (1.2-4.9); Mean Corpuscular HGB Conc 33.3 g/dl (31.0-35.0); Mean Corpuscular Hemoglobin 29.7 pg (27.0-33.0); Mean Platelet Volume 10.5 fL (9.4-12.3); Monocytes Absolute Auto 0.5 X10*3/uL (0.1-1.2); Monocytes Percent Auto 7.2 % (2-11); Neutrophils Absolute Auto 4.2 x10*3/uL (2.0-8.3); Neutrophils Percent Auto 58.7 % (45-73); Platelet Count 218 X10*3/uL (160-400); Red Blood Count 4.82 X10*6/uL (4.20-5.50); Red Cell Distribution Width 12.4 % (11.0-16.0); White Blood Count 7.1 X10*3/uL (4.8-10.8)
[2024-05-23 13:49] LABS: Alanine Aminotransferase 46 U/L (0-31); Albumin Level 4.4 g/dL (3.5-5.0); Alkaline Phosphatase 72 U/L (39-117); Anion Gap 9 (12-20); Aspartate Amino Transferase 31 U/L (5-31); Bilirubin Total 0.4 mg/dL (0.0-1.0); Blood Urea Nitrogen 20 mg/dL (9-16); Calcium 9.7 mg/dL (8.4-10.2); Carbon Dioxide 27 mmol/L (22-29); Chloride 109 mmol/L (96-108); Cholesterol 213 mg/dL (<200); Estimated Glomerular Filt Rate > 60; Glucose Fasting 96 mg/dL (60-99); HDL Cholesterol 46 mg/dL (>40); LDL Cholesterol Calculated 127 mg/dL (<100); Potassium 4.3 mmol/L (3.3-5.1); Sodium 141 mmol/L (135-145); Triglycerides 204 mg/dL (<150)
== END 2024-05-23 10:35 | disposition home or self-care (01) ==
LOC: HO.XRAY 10:34
PROVIDERS: Absent Provider Nurse Practitioner Family; PCP Internal Medicine; Visit Provider Internal Medicine
DX: M47.22 Other spondylosis with radiculopathy, cervical region (principal); M54.32 Sciatica, left side; M54.31 Sciatica, right side; M62.838 Other muscle spasm; M25.551 Pain in right hip; E78.5 Hyperlipidemia, unspecified; G43.909 Migraine, unspecified, not intractable, without status migrainosus; M50.30 Other cervical disc degeneration, unspecified cervical region
CPT/HCPCS: 36415; 72040; 72052; 72100; 73502; 80053; 80061; 85025; 99202

== ENCOUNTER → 2024-05-23 10:41 | Outpatient (BNV) | payer OTHER, SELFPAY | PROVIDERS: Absent Provider Nurse Practitioner Family; PCP Internal Medicine; Visit Provider Radiology Diagnostic Radiology | DX: M47.22 Other spondylosis with radiculopathy, cervical region (principal); M54.31 Sciatica, right side; M25.551 Pain in right hip | CPT/HCPCS: 72052; 72100; 73502 ==

== ENCOUNTER → 2024-06-17 18:02 | Outpatient (BNV) | payer OTHER, SELFPAY | PROVIDERS: PCP Internal Medicine; Visit Provider Radiology Diagnostic Radiology | DX: M50.30 Other cervical disc degeneration, unspecified cervical region (principal) | CPT/HCPCS: 72141 ==

== ENCOUNTER 2024-06-17 18:03 | Outpatient (REF) | payer OTHER, SELFPAY | END 2024-06-17 18:04 | disposition home or self-care (01) | LOC: HO.MRI 18:03 | PROVIDERS: PCP Internal Medicine; Visit Provider Nurse Practitioner Family | DX: G43.909 Migraine, unspecified, not intractable, without status migrainosus (principal); M50.30 Other cervical disc degeneration, unspecified cervical region; M47.22 Other spondylosis with radiculopathy, cervical region | CPT/HCPCS: 72141 ==

== ENCOUNTER 2024-06-28 10:36 | Outpatient (RCR) | payer OTHER, SELFPAY ==
--- NOTE | 2024-05-30 16:15 | MHC.PT.EP ---
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 PAIN NOW RETURNS ACROSS LOW BACK AND INTO BUTTOCK AND HIPS AT TIMES SHOOTING DOWN TO ANKLES AT TIMES, SHOOTING PAIN WHICH CHANGES WITH ACTIVITY. PAIN IN LOW BACK PULLING HER DOWN , PRESSURE, WEIGHT . CHANGES WITH POSITION CHANGES, AVOIDING LAYING ON BACK, STANDING STILL. IMPROVES WITH WALKING. LIVES IN PRIVATEE HOME, NO DIFFICULTY WITH STAIRS. REPORTS FEQUENT ACTIVY CHANGES WILL HELP TO . RIGHT SCIATICA > LEFT MOM W/ DEMENTIA, DAUGHTER CF AND BROTHER WITH DM. UPON EXAM SHE PRESENTS WITH IMPAIRMENTS INCLUDING DECREASED LE ROM, DECREASED HIP AND LE STRENGTH, ALTERED POSTURE AND POSITIONING WITH DECREASED SOFT TISSUE MOBILITY, INCREASED PAIN. FUNCTIONAL LIMITATIONS INCLUDE DECREASED TOLERANCE TO SELF CARE AND [id number] TASKS, DECREASED TOLERANCE TO LIFTING BENDING, PUSHING AN DPULLING. SHE REPORTS DECREASED PARTICIPATION IN COMMUNITY AND FITNESS ACTIVITIES, DISRUPTED SLEEP. ALSO PRESEDNTS WITH HYPOFUNCTION OF VESTIBULAR SYSTEM SECONDARY TO DECREASED CROM Frequency and Duration: The patient will be seen 2 X WEEK FOR 4 WEEKS Short Term Goals: INITIATE HEP AND PROMOTE SELF MANAGEMENT OF SYMPTOMS Fpc Goals: FULL LE STRENGTH, EQUAL TANK IN ORDER TO PERFORM FUNCTIONAL SQUAT TO DEMONSTRATE IMPROVED POSTURE WITH DECREASED HYPERLORDOSIS DURING ADLs TO DEMONSTRATE IMPROVED CROM TO PERFORM APPROPRIATE GAIT WITH HEAD TURNS INDEPEDENT HEP AND SELF MANAGEMENT OF SYMPTOMS Treatment Plan: Modalities to reduce pain, spasms and effusion. Manual therapy to restore motion and function. Therapeutic exercise to improve strength and flexibility. Neuromuscular re-education for posture and balance. Therapeutic activities to return to functional activities of daily living. Electronically signed by: LUZ NULL PT DPT Please sign and return to therapist. Thank you for your referral.
--- NOTE | 2024-07-16 09:41 | MHC.PT.DC ---
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 States she is currently pain free and we will DC at this time. Has been instructed to cont with HEP and contact our office with any questions or concerns. Electronically signed by: Jenni Pearce PT DPT Please sign and return to therapist. Thank you for your referral.
== END 2024-07-16 09:41 | disposition home or self-care (01) ==
LOC: HO.PT 10:36
PROVIDERS: PCP Internal Medicine; Visit Provider Internal Medicine
DX: M54.31 Sciatica, right side (principal); M54.32 Sciatica, left side
CPT/HCPCS: 97110; 97140; 97162; 97535

== ENCOUNTER 2024-07-01 10:20 | Outpatient (AMB) | payer OTHER, SELFPAY ==
--- NOTE | 2024-07-01 10:21 | MHC.OFFVIS ---
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 Patient reports low back and hip pain has been minimal. Rates overall pain today 0/10. Her main concerns today is weekly black out during exercises or hyperextending her neck when taking shower. She avoids rotating her neck to the right or left during ambulation or exercise as this will also cause her to black out but without fall. Patient does report occasional gait disturbance and clumsiness, more noted with the right leg. She has pending Urology evaluation on 07/10/24 for urinary incontinence. Denies any recent cough, cold, infection, fever or any significant changes in medical history since last office visit. PRIOR: Patient is a pleasant 48-year-old female with history of L4-L5 bulging and herniated disc due to injury in 2005 work related injury, chronic low back and neck pain, migraine headaches, asthma, ovarian cysts, presents today for initial evaluation of neck pain, low back pain and right hip pain. Denies any recent trauma, injury, or falls. Patient reports increased lower back pain with radiation into her right buttock and right hip and into right anterior thigh with associated numbness and burning sensations, especially while exercising. Neck pain is axial and also radiates upper extremities with associated parasthesias in tingling, right worse than the left arm. Patient reports intermittent episodes or visual disturbances, burning sensations in her head, and my head blacks out and close up feeling with intense exercise. Reports increasing migraine and tension headaches with neck symptoms. Pain affects her daily activities and functioning, mobility, ROM, sleep, and social interactions. She completed physical therapy in 2005. Currently she cannot pursue formal PT or home exercises due to significant exacerbation of neck and back pain with movements and ADLs. Denies any fever or chills, shortness of breaths, cough, chest pain, shoulder pain, weakness, footdrop, bladder or bowel dysfunction, or saddle anesthesia. Oswestry Low Back Pain Disability=21 (moderate disability) Location: Lower back with radiculopathy, right hip Duration: Chronic pain, worsening for past 6 months Characteristics of symptom or complaint: Throbbing, pinching, burning, tingling , shooting, RLE numbness, stabbing Aggravating or associated factors: Prolonged walking or standing, laying flat, sleeping, ADLs, cold weather Relieving factors: Rest, sitting, Tylenol, Ibuprofen, nabumethone, heat Treatment: PT- 2005 [facility] Medical History (Updated 07/01/24 @ 11:13 by ROC Guerra) Migraine Surgical History Hx of unilateral oophorectomy Hx of section History of hernia surgery Family History Father HTN (hypertension) Diabetes Mother Diabetes HTN (hypertension) Social History Household Members: Family Household Members Other:: Daughter Housing: House Alcohol intake: current Alcohol intake frequency: holidays/special occasions only Patient Tobacco Use Status: Never used Tobacco e-Cigarette/Vaping Use: Never Used service: No Current occupational status: unemployed Sexual orientation: Straight/Heterosexual Gender identity: Female Cognitive needs: No Hearing needs: No Vision needs: No Female Reproductive History Menstrual Age of Menarche: 14 Review of Systems Const All systems reviewed & are unremarkable except as noted in HPI and below Physical Exam Vital Signs: Last Vital Signs Pulse 97 07/01/24 10:24 BP 119/69 07/01/24 10:24 Pulse Ox 100 07/01/24 10:24 Oxygen Delivery Method Room Air 07/01/24 10:24 BMI result Body Mass Index 29.0 General: Appears afebrile. Alert and oriented. Mood and affect appropriate. Follows and participates in conversation appropriately. Respiratory effort is unlabored. No cough. Able to transition from sit to stand unassisted. Ambulates with bilaterally normal heel strike and toe off. Neck Other: Patient with decreased cervical ROM in all planes/especially with left lateral rotation. Reports increased pain with cervical extension and flexion. Spurling compression test is negative. Pain is unchanged by Spurling maneuver with retraction. Elvey's tension test positive bilaterally, worse on the left, with radiation of pain from neck to lower arm with tingling. Lhermitte's test was negative. DTR intact, mildly diminished on the left. Patient demonstrated 5/5 motor strength of bilateral upper extremities. 2 + radial pulses. No paravertebral tenderness over facet joints bilaterally. No clonus. Neck: Yes normal visual inspection, Yes no lymphadenopathy, Yes supple, No anterior neck swelling, No torticollis, Yes no JVD, No prominent supraclavicular fat pad and Yes prominent dorsocervical fat pad Back/Spine/Pelvis Cervical Spine: No collar present, cervical muscular tenderness, pain with cervical ROM, No Cervical spine scars present, cervical spasm, No Cervical spine tenderness and No step off deformity Thoracic/Lumbar Spine: thoracic and lumbar spine normal to inspection, No Thoracic/lumbar spine scar(s), Lasegue's sign negative, straight leg raise negative bilaterally, pain with thoraco-lumbar ROM, paraspinal muscle tenderness, No thoracic spinal tenderness and lumbar spinal tenderness (L3-S1) Pelvis: buttock tenderness on the right (mild) and no sciatic notch tenderness Sacroiliac joints: bilaterally (right>left) tender to palpation Extrem General: Yes capillary refill normal, Yes no clubbing, cyanosis or edema and Yes no calf tenderness Results Reviewed Results Reviewed: MR cervical spine wo con 06/17/24 CLINICAL HISTORY: M47.22 - Other spondylosis with radiculopathy, cervical region Neck pain and tingling feeling MR cervical spine without gadolinium Comparison: CR/KY/SR - XR CERVICAL SPINE MIN 6V - 05/23/24 12:19 EST Findings: There is straightening of the cervical spine. There is 2 mm of anterolisthesis of C3 on C4. There is 2 mm of retrolisthesis of C5 on C6. No acute fractures or pathologic bone lesions. Visualized intracranial contents are unremarkable. No cervical fluid collections or masses. Cervical cord normal size and signal. Multilevel disc height loss and disc desiccation in the cervical spine. Level by level description: At C2-3 there is no abnormality. At C3-4 is mild disc height loss and mild circumferential disc bulge. No foraminal narrowing. No central canal narrowing. At C4-5 there is severe disc height loss. Bilateral uncovertebral hypertrophy is present, right greater than left severe bilateral foraminal narrowing, right greater than left. Mild central canal narrowing present with the AP diameter of 8 mm. At C5-6 there is broad-based circumferential disc bulge with severe disc height loss as well as bilateral marked uncovertebral hypertrophy. There is resultant moderate canal stenosis with an AP diameter of 6 mm. There is severe bilateral foraminal narrowing secondary to uncovertebral hypertrophy. At C6-7 there is a diffuse circumferential disc bulge and bilateral uncovertebral hypertrophy. There is a effacement of the CSF around the cord and AP diameter measures 5.6 mm, consistent with severe canal stenosis. Moderately severe right and severe left foraminal narrowing present. At C7-T1 there is a circumferential disc bulge which results in mild canal stenosis with an AP diameter of 8 mm. No foraminal narrowing. IMPRESSION: Multilevel degenerative change of the cervical spine with resultant canal stenosis most significant at C5-6 and C6-7. There is multilevel foraminal narrowing affecting C4-5 through C6-7. XR CERVICAL SPINE 05/23/24 CLINICAL INFORMATION: M47.22 - Other spondylosis with radiculopathy, cervical region COMPARISON: None available. TECHNIQUE: 6 views of the cervical spine, inclusive of flexion and extension views, were obtained. FINDINGS: There is maintained cervical lordosis. There is mild loss of C4-C5, C5-6 and C6-C7 disc heights with mild ventral spondylosis. There is bilateral moderate narrowing of C4-5 and C5-6 neural foramina from uncovertebral hypertrophic changes. No visible acute fracture, dislocation or subluxation seen. The prevertebral soft tissues are normal. IMPRESSION: Degenerative disc changes C4-C5, C5-6 and C6/7 disc levels with ventral spondylosis. Moderate bilateral neural foraminal narrowing at C4-5 and C5-6 disc levels from uncovertebral hypertrophic changes. XR Right hip and pelvis 05/23/24 CLINICAL INDICATION: Pain in right hip. COMPARISON: None. TECHNIQUE: AP pelvis one view. Right hip 2 views. FINDINGS: AP pelvis: There is normal bilateral hip joint and SI joint space. No bony erosive changes. No visible fracture, dislocation seen. The pelvic bones are normal. The soft tissues are normal. AP and frog-leg views right hip reveal normal joint space. No bony erosive changes or loose bodies seen. No enthesophytes. The soft tissues are normal. IMPRESSION: Unremarkable AP pelvis and right hip exam. XR LUMBOSACRAL SPINE 05/23/24 CLINICAL INFORMATION: M54.31 - Sciatica, right side COMPARISON: None available. TECHNIQUE: Three views of the lumbosacral spine. FINDINGS: The vertebral bodies and posterior elements are normal. There is mild loss of L4-5 disc height. Rest the disc heights, vertebral heights and alignment appears preserved. Mild right L5-S1 and L4-5 facet joint arthropathy and hypertrophy. Mild ventral L2-3 and posterior L3-4 spondylosis is noted. No lytic or sclerotic process seen. The paravertebral soft tissues are normal. SI joints are symmetrical and normal.. IMPRESSION: Mild right L4-5 and L5-S1 facet joint arthropathy and hypertrophy. Mild degenerative L4-5 disc changes. Assessment & Plan Assessment & Plan (1) Cervical spondylosis with radiculopathy: Code(s): M47.22 - Other spondylosis with radiculopathy, cervical region Category: Medical (2) Cervical disc disease with myelopathy: Code(s): M50.00 - Cervical disc disorder with myelopathy, unspecified cervical region Category: Medical (3) Muscle spasms of neck: Code(s): M62.838 - Other muscle spasm Category: Medical (4) Degenerative disc disease, cervical: Code(s): M50.30 - Other cervical disc degeneration, unspecified cervical region Category: Medical (5) Right hip pain: Code(s): M25.551 - Pain in right hip Category: Medical (6) Lumbar spondylosis: Code(s): M47.816 - Spondylosis without myelopathy or radiculopathy, lumbar region Category: Medical Plan Cervical spine MRI and xray results were discussed with patient today. She presents with minimal to no neck pain at rest today but reports mild cervical myelopathy symptoms especially when exercising or taking shower with cervical hyperextension. She avoids turning to the left or right during walking or exercise which will cause black outs, this happens at least once a week per patient. Patient also reports gait disturbance, especially right leg with clumsiness. We will proceed with Neurosurgical evaluation as next steps. If she is deemed non-surgical, we will consider Interlaminar C6-C7 CHARBEL with local and fluoroscopy. Expectations, risks and benefits were reviewed. Patient is aware to call if pain worsens or if she develops any red flag symptoms to seek emergency care. Reviewed red flags for progressive cervical myelopathy and spinal stenosis with patient. Lumbar spine and right hip xray results were also reviewed today. Back pain and right hip pain has been improving with PT and HEP. All questions and concerns answered and patient agreed with the treatment plan. Follow-up after Neurosurgical evaluation and sooner as needed. Orders: Referrals Neuro Spine Referral M47.22 - Other spondylosis with radiculopathy, cervical region, M50.00 - Cervical disc disorder with myelopathy, unspecified cervical region Coding Level of Care Code Est Pt Level 4 (04224) Complex EM visit Add On G2211 Diagnoses Cervical spondylosis with radiculopathy M47.22 Cervical disc disease with myelopathy M50.00 Muscle spasms of neck M62.838 Degenerative disc disease, cervical M50.30 Right hip pain M25.551 Lumbar spondylosis M47.816
[2024-07-01 10:24] VITALS: BP 119/69; PULSE 97; O2SAT 100; BMI 29.0
== END 2024-07-01 11:04 | disposition home or self-care (01) ==
PROVIDERS: PCP Internal Medicine; Visit Provider Nurse Practitioner Family
DX: M47.22 Other spondylosis with radiculopathy, cervical region (principal); M50.00 Cervical disc disorder with myelopathy, unspecified cervical region; M62.838 Other muscle spasm; M50.30 Other cervical disc degeneration, unspecified cervical region; M25.551 Pain in right hip; M47.816 Spondylosis without myelopathy or radiculopathy, lumbar region
CPT/HCPCS: 99214; G2211

== ENCOUNTER → 2024-07-01 10:20 | Outpatient (BNVA) | payer OTHER, SELFPAY | PROVIDERS: PCP Internal Medicine; Visit Provider Nurse Practitioner Family | DX: M47.22 Other spondylosis with radiculopathy, cervical region (principal); M50.00 Cervical disc disorder with myelopathy, unspecified cervical region; M62.838 Other muscle spasm; M50.30 Other cervical disc degeneration, unspecified cervical region; M25.551 Pain in right hip; M47.816 Spondylosis without myelopathy or radiculopathy, lumbar region | CPT/HCPCS: 99212 ==

== ENCOUNTER 2024-07-04 08:20 | Outpatient (AMB) | payer OTHER, SELFPAY ==
--- NOTE | 2024-07-04 08:41 | MHC.PC.OV ---
Vital Signs 07/04/24 08:42 Height 5 ft 5 in Weight 174 lb 8 oz BMI 29.0 BP 110/70 Blood Pressure Location Lt brachial Position Sitting Pulse 78 Pulse Source Pulse Oximeter Temp 97.1 F Temp Source Temporal Artery Scan Pulse Oximetry (%) 98 Oxygen Delivery Method Room Air Intake Visit Reasons: PE Intake Note: Patient is here today for a physical. 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 per policy Accompanied by: Self / Same As Patient Allergies hydrocodone [From Vicodin] Allergy (Mild, Verified 07/04/24 08:53) UNKNOWN latex [Latex] Allergy (Mild, Verified 07/04/24 08:53) RASH carisoprodol Adverse Reaction (Mild, Verified 07/04/24 08:53) NAUSEA & VOMITING, HEADACHES Vicodin Adverse Reaction (Unknown, Uncoded 07/04/24 08:53) vomiting Medication List - Last Reconciled 07/04/24 by Erendira Prescott MD bisacodyl (Dulcolax (bisacodyl)) 20 mg (4 x 5 mg) PO ONCE 1 day calcium carbonate (Calcium 500) 500 mg PO DAILY cholecalciferol (vitamin D3) 10 mcg PO DAILY clotrimazole-betamethasone 1-0.05 % 1 appl topical BID 5 days collagen,hydrolyz-ascorbate Ca 1 gram- 10 mg tabs PO nabumetone 750 mg PO BID PRN 30 days omega 5-wgl-mty-fish oil 1,000 (120-180) mg (Fish Oil) 1 cap PO DAILY polyethylene glycol 3350 (Miralax) 238 grams PO ONCE Tobacco use date assessed: 07/04/24 Dental Screening Dental Screen Date: 05/13/24 HPI HPI Comments History of Present Illness Details The patient is a 48-year-old female presenting for a routine physical examination. She has a notable history of HPV positivity indicated in a Pap smear from the previous year, requiring biopsy and ongoing follow-up care. Her preventative health measures include a past tetanus booster in 2019, intending a 10-year repeat vaccination. The patient recently completed a Cologuard test, which yielded a negative result, preempting colorectal cancer concerns. 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 Her calculated Arcadia risk supports continued lifestyle modifications rather than pharmacotherapy at this time. Her medication regimen includes supplements designed to address her lipid profile. She deals with occasional pain using bumetanide, but due to undesirable side effects, has switched to [id number] ibuprofen, which mitigates her symptoms without complications. Regarding mental health, the patient self-manages mild depressive episodes without professional assistance. A recent MRI categorized cervical spine abnormalities, guiding her scheduled consultation with spinal surgery. - Last Pap smear and HPV screening: positive, necessitating annual gynecological follow-up - Tetanus vaccine updated in 2018, next due in 2028 - Cologuard test: negative (May of current year), next recommended in 2027 - Arcadia Risk Score: 0.6%, lifestyle modifications advised - Blood cholesterol: Elevated, managed via low-fat diet, supplements (CoQ10, red yeast rice, omega-3) PFSH Medical History (Updated 07/04/24 @ 09:07 by Erendira Prescott MD) Migraine Surgical History Hx of unilateral oophorectomy Hx of section History of hernia surgery Family History Father HTN (hypertension) Diabetes Mother Diabetes HTN (hypertension) Other Mental health disorder Substance use disorder Social History (Updated 07/04/24 @ 08:59 by Erendira Prescott MD) Household Members: Family Household Members Other:: Daughter Housing: House Alcohol intake: current Alcohol intake frequency: holidays/special occasions only Alcohol type: hard liquor Patient Tobacco Use Status: Never used Tobacco e-Cigarette/Vaping Use: Never Used Second Hand Smoke Exposure: No service: No Current occupational status: unemployed Sexual orientation: Straight/Heterosexual Gender identity: Female Cognitive needs: No Hearing needs: No Vision needs: No Female Reproductive History Menstrual Age of Menarche: 14 Questionnaire PHQ-9 Over the last 2 weeks, how often have you been bothered by any of the following problems? 1. Little interest or pleasure in doing things: not at all 2. Feeling down, depressed, or hopeless: several days 3. Trouble falling or staying asleep, or sleeping too much: several days 4. Feeling tired or having little energy: not at all 5. Poor appetite or overeating: not at all 6. Feeling bad about yourself - or that you are a failure or have let yourself or your family down: several days 7. Trouble concentrating on things, such as reading the newspaper or watching television: several days 8. Moving or speaking so slowly that other people could have noticed. Or the opposite - being so fidgety or restless that you have been moving around a lot more than usual: several days 9. Thoughts that you would be better off or of hurting yourself in some way: not at all Total score: 5 Depression Screening Interpretation: Positive Depression Screening Follow-up: Existing condition and Follow-up Visit Requested Depression Screening Done: Yes 56219 - PHQ-9 Billing: Yes Source: Developed by Drs. Dedrick Schaefer, Sobeida Agustin, Harshad La and colleagues, with an educational annabella from [employer]. Thrive Questionnaire Date Thrive assessed: 07/04/24 I am a: Patient What is your living situation today?: I have a steady place to live Within the past 12 months, did the food you bought not last and you didn't have the money to get more?: Never true Within the past 12 months, did you worry whether your food would run out before you got money to buy more?: Never true Do you have trouble paying for medicines?: No Do you have trouble getting transportation to medical appointments?: No Do you have trouble paying your heating and electricity bill?: No Do you have trouble taking care of your child, family member or friend?: No Do you have trouble with day-to-day activities such as bathing, preparing meals, shopping, managing finances, etc.?: No Are you currently unemployed and looking for a job?: No Are you interested in more education?: No Please select the resources that you would like help with: None THRIVE Score: 0 ADDISON-7 AMB Questionnaire ADDISON-7 Date ADDISON - 7 assessed: 05/13/24 Source: Developed by Drs. Dedrick Schaefer, Harshad Fields and colleagues, with an educational annabella from [employer]. Review of Systems Const All systems reviewed & are unremarkable except as noted in HPI and below Card Denies chest pain at rest, Denies chest pain with activity, Denies edema, Denies irregular heart rhythm, Denies claudication, Denies dyspnea, Denies dyspnea on exertion, Denies orthopnea, Denies paroxysmal nocturnal dyspnea and Denies slow heart rate Resp Denies cough, Denies dyspnea and Denies dyspnea on exertion GI Denies abdominal pain, Denies change in bowel habits, Denies excessive flatus, Denies nausea and Denies vomiting Denies urinary incontinence, Denies urinary hesitancy and Denies urinary urgency Musc Denies abnormal gait, Denies atrophy, Denies deformity and Denies limited range of motion Skin/Breast Denies bleeding lesions, Denies changing lesions and Denies rash Neuro Denies abnormal gait and Denies lack of coordination Physical exam (Primary Care) Vital Signs: Last Vital Signs Temp 97.1 F 07/04/24 08:42 Pulse 78 07/04/24 08:42 BP 110/70 07/04/24 08:42 Pulse Ox 98 07/04/24 08:42 Oxygen Delivery Method Room Air 07/04/24 08:42 BMI result Body Mass Index 29.0 Tobacco/Smoking Status: Tobacco use Status Tobacco use date assessed 07/04/24 07/04/24 08:46 Patient Tobacco Use Status Never used Tobacco 07/04/24 08:46 e-Cigarette/Vaping Use Never Used 07/04/24 08:46 PHQ-9: PHQ-9 Score PHQ-9: Total score 5 07/04/24 08:46 Depression Screening Interpretation: Positive Depression Screening Follow-up: Existing condition and Follow-up Visit Requested Thrive Assessment: Date of Thrive Assessment Date Thrive assessed 07/04/24 07/04/24 08:46 HENNM Head: Yes normal to inspection, Yes normocephalic and Yes atraumatic Ears: external ears normal Eyes General: appearance normal, both eyes and all related structures Eyelids: Yes eyelids normal Conjunctivae: conjunctivae normal Neck Neck: Yes normal visual inspection and Yes supple Resp Effort & Inspection: normal respiratory effort Auscultation: clear to auscultation bilaterally Cardio Jugular venous distension: no JVD Rate: regular rate Rhythm: regular rhythm Heart sounds: S1 normal heart sound present and S2 normal heart sound present GI Inspection: Yes normal to inspection Palpation (GI): Soft to palpation and nontender Auscultation: normal bowel sounds Skin General skin exam: no rashes or lesions noted Neuro General: no focal motor deficits Extrem General: Yes full ROM Psych Appearance: grossly normal Coding Level of Care Code Est Pt Prev Care 40-64y(67894) Diagnoses Physical exam Z00.00 Mild major depression F32.0 Additional Codes PHQ-9 - 77511 - PHQ-9 Billing: Yes ([id number]) Time Spent (min) 30 Assessment & Plan Assessment & Plan (1) Physical exam: Code(s): Z00.00 - Encounter for general adult medical examination without abnormal findings Category: Medical (2) Mild major depression: Code(s): F32.0 - Major depressive disorder, single episode, mild Category: Medical Plan An ongoing management plan involves monitoring HPV implications, ensuring continual screening, and integrating preventive health measures. Elevated cholesterol will remain controlled via dietary and supplemental avenues given genetic risks. The patient will replace nabumetone with ibuprofen, tolerating current therapeutic regimens considering milder adverse reactions. Further neurology and surgical evaluations will address MRI-documented cervical spine irregularities and plan subsequent interventions. A follow-up will monitor symptom changes or emerging needs concerning affective disorders impacting daily life. Patient was informed and verbally consented to the use of an ambient scribe for clinic note documentation during this visit. During the visit, we reviewed the patient?s medical history, focusing on her HPV status and planned screenings, confirming continuity of care with her dermatologist and dermatopathologist. We acknowledged the cervical irregularities indicated on MRI, necessitating consultation with a spine surgeon. I emphasized the lifestyle focus in managing elevated cholesterol due to a low Arcadia Risk Score, acknowledging her genetic predisposition. In-depth discussions surrounded pain management with ibuprofen replacing nabumetone due to its side effect profile. We addressed mild depressive episodes without current therapeutic involvement unless symptoms become unmanageable. Follow-up precautions were clarified alongside scheduled evaluations, supporting functional and emotional health. The patient's conditions were contrasted against the documented family histories, underscoring preventive measures to forestall emergent conditions. Patient Instructions: - Continue with dietary and supplement regimen for cholesterol management - Replace nabumetone with ibuprofen for pain relief - Routine follow-up with dermatologist and dermatopathologist for HPV monitoring - Attend scheduled internet marketing specialist appointment - Engage in regular physical activity and maintain a low-fat diet - Monitor for any new or worsening symptoms and seek care if necessary
[2024-07-04 08:42] VITALS: BP 110/70; PULSE 78; TEMP 36.2; O2SAT 98; BMI 29.0
== END 2024-07-04 09:09 | disposition home or self-care (01) ==
PROVIDERS: PCP Internal Medicine; Visit Provider Internal Medicine
DX: Z00.00 Encounter for general adult medical examination without abnormal findings (principal); F32.0 Major depressive disorder, single episode, mild

== ENCOUNTER → 2024-07-04 08:20 | Outpatient (BNVA) | payer OTHER, SELFPAY | PROVIDERS: PCP Internal Medicine; Visit Provider Internal Medicine | DX: Z00.00 Encounter for general adult medical examination without abnormal findings (principal); M50.30 Other cervical disc degeneration, unspecified cervical region; F32.0 Major depressive disorder, single episode, mild | CPT/HCPCS: 96127; 99202; 99396 ==

== ENCOUNTER 2024-07-04 10:00 | Outpatient (AMB) | payer OTHER, SELFPAY ==
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
[2024-07-04 10:08] VITALS: BMI 29.0
== END 2024-07-04 11:09 | disposition home or self-care (01) ==
PROVIDERS: PCP Internal Medicine; Referring Provider Nurse Practitioner Family; Visit Provider Physician Assistant
DX: M50.30 Other cervical disc degeneration, unspecified cervical region (principal)
CPT/HCPCS: 99204

== ENCOUNTER 2024-08-05 07:07 | Outpatient (REF) | payer OTHER, SELFPAY ==
--- NOTE | ~2024-08-05 | CT_ITS ---
CLINICAL HISTORY: M50.30 - Other cervical disc degeneration, unspecified cervical region CT cervical spine without contrast Comparison: MR - MR CERVICAL SPINE WO CON - 06/17/24 18:20 EST Findings: Normal vertebral body alignment. Multilevel disc space narrowing and endplate osteophyte formation, as well as facet hypertrophy. No acute fractures or dislocations. Visualized intracranial contents are unremarkable. Soft tissues of the neck are normal. Lung apices are clear. IMPRESSION: No acute findings. This document has been electronically signed by: Sha Peralta MD on 08/05/2024 15:20:50
== END 2024-08-05 07:08 | disposition home or self-care (01) ==
LOC: HO.CT 07:07
PROVIDERS: PCP Internal Medicine; Visit Provider Physician Assistant
DX: M50.30 Other cervical disc degeneration, unspecified cervical region (principal)
CPT/HCPCS: 72125

== ENCOUNTER → 2024-08-05 07:09 | Outpatient (BNV) | payer OTHER, SELFPAY | PROVIDERS: PCP Internal Medicine; Visit Provider Radiology Diagnostic Radiology | DX: M50.30 Other cervical disc degeneration, unspecified cervical region (principal) | CPT/HCPCS: 72125 ==

== ENCOUNTER 2024-09-17 09:50 | Outpatient (REF) | payer OTHER, SELFPAY ==
[2024-09-20 15:23] LABS: HPV Genotype 16 Negative (Negative); HPV Genotype 18 Negative (Negative); HPV High Risk Negative (Negative)
== END 2024-09-17 09:51 | disposition home or self-care (01) ==
LOC: HO.LNP 09:50
PROVIDERS: PCP Internal Medicine; Visit Provider Obstetrics & Gynecology
DX: Z01.419 Encounter for gynecological examination (general) (routine) without abnormal findings (principal)
CPT/HCPCS: 87626; 88175; 99396; 99459

== ENCOUNTER 2024-09-17 09:50 | Outpatient (AMB) | payer OTHER, SELFPAY ==
[2024-09-17 09:57] VITALS: BP 130/80; BMI 28.8
--- NOTE | 2024-09-17 09:57 | MHC.OFFVIS ---
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 Allergies hydrocodone [From Vicodin] Allergy (Mild, Verified 09/17/24 10:01) UNKNOWN latex [Latex] Allergy (Mild, Verified 07/04/24 10:10) RASH carisoprodol Adverse Reaction (Mild, Verified 07/04/24 10:10) NAUSEA & VOMITING, HEADACHES nabumetone Adverse Reaction (Mild, Verified 07/04/24 10:10) Dizziness Vicodin Adverse Reaction (Unknown, Uncoded 07/04/24 08:53) vomiting Medication List - Last Reconciled 09/17/24 by Melanie Bates LPN calcium carbonate (Calcium 500) 500 mg PO DAILY cholecalciferol (vitamin D3) 10 mcg PO DAILY collagen,hydrolyz-ascorbate Ca 1 gram- 10 mg tabs PO nabumetone 750 mg PO BID PRN 30 days omega 3-obh-del-fish oil 1,000 (120-180) mg (Fish Oil) 1 cap PO DAILY Is last menstrual period known: No Post menopausal: Yes Patient : No HPI Comments Details: Presenting for annual exam. No complaints. Last Pap/HPV was ascus HPV positive in 09/28, colpo biopsy ECC negative Last Mammogram was BI-RADS 2 in 10/29 The patient had GI consult and decided to go with Cologuard instead of colonoscopy PFSH Medical History (Updated 09/17/24 @ 10:04 by Matteo Mcclure MD) ASCUS with positive high risk HPV cervical Migraine Surgical History Hx of unilateral oophorectomy Hx of section History of hernia surgery Family History Father HTN (hypertension) Diabetes Mother Diabetes HTN (hypertension) Other Mental health disorder Substance use disorder Social History (Updated 07/04/24 @ 08:59 by Erendira Prescott MD) Household Members: Family Household Members Other:: Daughter Housing: House Alcohol intake: current Alcohol intake frequency: holidays/special occasions only Alcohol type: hard liquor Patient Tobacco Use Status: Never used Tobacco e-Cigarette/Vaping Use: Never Used Second Hand Smoke Exposure: No service: No Current occupational status: unemployed Sexual orientation: Straight/Heterosexual Gender identity: Female Cognitive needs: No Hearing needs: No Vision needs: No Female Reproductive History Menstrual Age of Menarche: 14 Total pregnancies: 1 Full term: 1 Number of Living Children: 1 Date of last pap smear: 09/08/23 History of abnormal pap smear: Yes (ASCUS HPV pos) History of STI: Yes Date of Mammogram: 10/09/23 History of abnormal mammogram: No Review of Systems Const All systems reviewed & are unremarkable except as noted in HPI and below Card Reports as per HPI Resp Reports as per HPI GI Reports as per HPI and Reports no additional complaints Reports as per HPI Physical Exam Vital Signs: Last Vital Signs BP 130/80 09/17/24 09:57 BMI result Body Mass Index 28.8 Const General: cooperative, healthy appearing and comfortable Chest Chest palpation & inspection: normal inspection of the chest and normal palpation of entire chest wall Breast/axilla inspection: normal inspection of the breasts and normal inspection of the axillae Breast/axilla palpation: normal palpation of the breasts, normal palpation of the axillae and no axillary lymphadenopathy Resp Effort & Inspection: normal respiratory effort Auscultation: clear to auscultation bilaterally Percussion: percussion normal Cardio Palpation: normal PMI Rate: regular rate Rhythm: regular rhythm Heart sounds: no murmurs and no rubs Peripheral pulses: Peripheral pulses 2+ throughout GI Inspection: Yes normal to inspection Palpation (GI): Soft to palpation, nontender, no guarding, not rigid and No hepatosplenomegaly present Percussion: Yes normal to percussion Auscultation: normal bowel sounds Rectal Exam - Female: deferred General: Yes bladder normal to palpation External Female Exam: No lesion Speculum Exam - Vagina: normal appearance of the vagina, normal palpation, normal vaginal discharge and not erythematous Speculum Exam - Cervix: normal appearance of the cervix and normal palpation Bimanual exam- vagina & uterus: normal bimanual exam, normal palpation, uterine size normal, bladder normal to palpation, consistency normal and normal palpation Bimanual Exam- Adnexa, other: normal adnexae, no masses and no tenderness Assessment & Plan Assessment & Plan (1) Well woman exam with routine gynecological exam: Comment: ASCUS HPV positive colpo biopsy ECC 09/28 Code(s): Z01.419 - Encounter for gynecological examination (general) (routine) without abnormal findings Category: Medical Plan: Cotesting done. Mammogram ordered. Counseled the patient about the recommended dietary allowance of 1000 mg of Calcium & 600 IU of vitamin D. The patient was instructed to perform monthly self-breast exams and to schedule an annual exam in a year; All questions answered and the patient verbalized understanding. Instructed the patient to schedule annual exam in a year Orders: Orders MM tomosynthesis screening BI Today Z12.31 - Encounter for screening mammogram for malignant neoplasm of breast Coding Level of Care Code Est Pt Prev Care 40-64y(56386) Diagnoses Well woman exam with routine gynecological exam Z01.419
== END 2024-09-17 10:19 | disposition home or self-care (01) ==
LOC: HO.HWS 09:50
PROVIDERS: PCP Internal Medicine; Visit Provider Obstetrics & Gynecology
DX: Z01.419 Encounter for gynecological examination (general) (routine) without abnormal findings (principal)
CPT/HCPCS: 99396; 99459

== ENCOUNTER 2024-09-19 14:06 | Outpatient (AMB) | payer OTHER, SELFPAY ==
--- NOTE | 2024-09-19 14:10 | HO.SPINEOV ---
Intake Visit Reasons: LBP Intake Note: Ms. Stevens is here today to discuss possible injection for Cervical Spine and c/o mid low back pain, sometimes radiates down right leg. 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 Please refer to Ihsan note for the specifics of her issues with her neck. Today she wanted to discuss issue she has been having with her low back with pain radiating down her right leg into her foot. She gets the pain in her low back in her right hip if she is standing for too long. The pain down her right leg comes on when she is sitting for too long. When she gets up and moves around it goes away. She is able to walk and even run extended distances without any pain down her leg, it is only when she is sitting for any length of time. If she lies flat on her back during sleep she has discomfort in her back but lying on her side is okay. In fact lying on her right side seems to make the pain in her hip and her right leg go away. On exam she has full strength of bilateral upper and lower extremities, no hyperreflexia, no Monroe's sign. Patellar reflexes are 3+, no clonus in the ankles. Gait is normal. No instability. She had lumbar x-rays done and this shows some mild degenerative disc disease at L4-5. She underwent physical therapy and takes nonsteroidal anti-inflammatories as needed but the pain persists. I am going to order a lumbar MRI and we can see her back in the office to re-evaluate. Total amount of time spent in this visit was 20 minutes in discussion of symptoms, lumbar x-ray imaging results and subsequent plan of care Masood Small MD,PhD [facility] Coding Level of Care Code Est Pt Level 3 (76426) Diagnoses Lumbar spondylosis M47.816
== END 2024-09-19 14:36 | disposition home or self-care (01) ==
LOC: HO.HNS 14:06
PROVIDERS: PCP Internal Medicine; Visit Provider Physician Assistant
DX: M47.816 Spondylosis without myelopathy or radiculopathy, lumbar region (principal)
CPT/HCPCS: 99213

== ENCOUNTER → 2024-09-19 14:06 | Outpatient (BNVA) | payer OTHER, SELFPAY | PROVIDERS: PCP Internal Medicine; Visit Provider Physician Assistant | DX: M47.816 Spondylosis without myelopathy or radiculopathy, lumbar region (principal) | CPT/HCPCS: 99212 ==

== ENCOUNTER 2024-10-08 08:44 | Emergency (ER) | payer OTHER, SELFPAY ==
[2024-10-08] VITALS (9 sets, daily range): BP systolic 121–152; BP diastolic 74–95; PULSE 71–126; RESP 17–18; TEMP 36.2–36.6; O2SAT 97–98; BMI 27.8
--- NOTE | 2024-10-08 | ECG_ITS ---
Test Reason : syncope,palpitations Blood Pressure : */* mmHG Vent. Rate : 88 BPM Atrial Rate : 88 BPM P-R Int : 138 ms QRS Dur : 92 ms QT Int : 358 ms P-R-T Axes : 52 3 39 degrees QTcB Int : 433 ms Normal sinus rhythm Minimal voltage criteria for LVH, may be normal variant ( Chipley product ) Borderline ECG When compared with ECG of 06-Nov-2017 11:26, Premature supraventricular complexes are no longer Present Referred By: Generic ED Physician Electronically Signed By: IBAN CULP
--- NOTE | 2024-10-08 | ECG_ITS ---
Test Reason : REPEAT Blood Pressure : */* mmHG Vent. Rate : 91 BPM Atrial Rate : 91 BPM P-R Int : 150 ms QRS Dur : 90 ms QT Int : 366 ms P-R-T Axes : 61 21 55 degrees QTcB Int : 450 ms Normal sinus rhythm Normal ECG When compared with ECG of 08-Oct-2024 09:21, No significant change was found Referred By: Dona Fowler Electronically Signed By: IBAN CULP
--- NOTE | ~2024-10-08 | XR_ITS ---
EXAMINATION: XR CHEST CLINICAL INFORMATION: chest pain COMPARISON: September 16, 2017 TECHNIQUE: 2 views of the chest were obtained. FINDINGS: Lungs are clear and well expanded. There is no pleural effusion. Heart size is within normal limits. Mediastinal and hilar contours are within normal limits. Bony structures are unremarkable aside from mild degenerative changes in the midthoracic spine.. XR/XR chest 2V IMPRESSION: No acute disease. Electronically signed by: Norris Hutchinson MD 10/08/2024 11:41 AM EDT
--- NOTE | ~2024-10-08 | CT_ITS ---
EXAMINATION: CT ANGIOGRAM head and neck NECK CLINICAL INFORMATION: Head pressure and syncope. COMPARISON: None available. TECHNIQUE: Following IV injection of 70 mL Omnipaque 350, thick 3 mm axial neck and 2 within axial brain imaging was performed. Sagittal and coronal 8 mm thick reconstructions performed. The degree of stenosis determined by NASCET criteria. This CT examination was performed using dose optimization techniques as appropriate, variously including the following: *Automated exposure control *Adjustment of mA and/or kV according to patient size (this includes techniques or standardized protocols for targeted exams where dose is matched to indication/reason for exam; i.e. extremities or head) *Use of iterative reconstruction technique FINDINGS: Noncontrast CT brain. There is no acute intra-axial, extra-axial bleed, masses or midline shift. The lateral ventricles are symmetrical in size and configuration without enlargement. There is normal mayes to white matter differentiation seen. Bone windows reveal no calvarial abnormality. No scalp soft tissue abnormality seen. Mild mucoperiosteal thickening bilateral anterior ethmoids sinuses are noted. Mastoid and rest of the paranasal sinuses are clear. Postcontrast CT brain: There is no enhancing mass, mass effect or edema. No abnormal shunting of vascularity seen to suspect any AVM. No dural enhancement seen. CTA brain.: Both internal carotid arteries, bifurcation and anterior middle cerebral arteries are widely patent. Both vertebral arteries are patent with mild anechoic degenerative of the right vertebral artery. The basilar artery and its branches are widely patent. There is no aneurysm or dissection seen. Normal vascularity seen in the supratentorial and infratentorial brain. CTA NECK: The thoracic arch is of normal caliber. There is normal three-vessel branching of the aortic arch with widely patent right brachiocephalic, left common carotid and left subclavian arteries. The common bilateral common carotid arteries are widely patent. There is normal branching into internal and external carotid arteries are widely patent. Bilateral internal carotid arteries are widely patent throughout the neck, petrous, cavernous and supraclinoid ICA segments. No aneurysm or dissection seen. Both vertebral arteries are codominant and patent in the neck extending intracranially. CT NECK: No gross neck mass or abnormal lymphadenopathy seen. The trachea is widely patent. Thyroid lobes are symmetrical and normal. Bilateral parotid and submandibular glands are widely patent. The nasopharyngeal, pharyngeal airway is widely patent. There are mild degenerative disc changes C4-5, C5-6 and C6/7 disc levels with ventral and posterior spondylosis. CT/CT angio head neck IMPRESSION: Unremarkable CTA neck and brain exam. Electronically signed by: Ameya Branch MD 10/08/2024 04:11 PM EDT
[2024-10-08 09:42] LABS: MANUAL DIFF FLAG NO
[2024-10-08 09:44] LABS: Basophils Percent Auto 0.6 % (0-2); Eosinophils Absolute Auto 0.2 X10*3/uL (0.0-0.4); Eosinophils Percent Auto 3.9 % (0-4); Hematocrit 42.7 % (37.0-47.0); Hemoglobin 14.3 g/dl (12.0-16.0); Imm Gran Abs Auto 0.01 X10*3/uL (0.00-0.03); Imm Gran Pct Auto 0.2 % (0.0-0.4); Lymphocytes Absolute Auto 1.8 X10*3/uL (1.2-4.9); Lymphocytes Percent Auto 35.6 % (20-40); Mean Corpuscular HGB Conc 33.5 g/dl (31.0-35.0); Mean Corpuscular Hemoglobin 29.7 pg (27.0-33.0); Mean Corpuscular Volume 88.6 fL (80.0-98.0); Mean Platelet Volume 9.9 fL (9.4-12.3); Monocytes Absolute Auto 0.4 X10*3/uL (0.1-1.2); Monocytes Percent Auto 8.1 % (2-11); Neutrophils Absolute Auto 2.5 x10*3/uL (2.0-8.3); Neutrophils Percent Auto 51.6 % (45-73); Platelet Count 204 X10*3/uL (160-400); Red Blood Count 4.82 X10*6/uL (4.20-5.50); Red Cell Distribution Width 12.3 % (11.0-16.0); White Blood Count 4.9 X10*3/uL (4.8-10.8)
[2024-10-08 09:50] LABS: INTERNATIONAL NORM RATIO 1.2 (0.9-1.1); Prothrombin Time 13.4 SEC (10.9-12.4)
[2024-10-08 09:58] LABS: Alanine Aminotransferase 38 U/L (0-31); Albumin Level 4.6 g/dL (3.5-5.0); Alkaline Phosphatase 82 U/L (39-117); Anion Gap 11 (12-20); Aspartate Amino Transferase 34 U/L (5-31); Bilirubin Total 0.5 mg/dL (0.0-1.0); Blood Urea Nitrogen 18 mg/dL (9-16); Calcium 9.7 mg/dL (8.4-10.2); Carbon Dioxide 27 mmol/L (22-29); Chloride 106 mmol/L (96-108); Creatinine Clr Calc Pharmacy 110.3; Estimated Glomerular Filt Rate > 60; Glucose Random 163 mg/dL (60-115); Potassium 4.7 mmol/L (3.3-5.1); Sodium 139 mmol/L (135-145); Total Protein 7.6 g/dL (6.5-8.0)
[2024-10-08 10:13] LABS: Troponin-I High Sensitivity < 2.7 ng/L (<3.5-17.0)
--- NOTE | 2024-10-08 10:14 | ED.GENADULT ---
HPI - General Adult General Chief complaint: General Medical Stated complaint: Passed out earlier, hit head/elbow Time Seen by Provider: 10/08/24 10:14 Source: patient and RN notes reviewed Mode of arrival: ambulatory Limitations: no limitations History of Present Illness ED Provider: Dona Fowler PA-C HPI narrative: This is a 49-year-old female, with a history of asthma, and degenerative disc disease, who presents emergency department concerns of syncopal episode which occurred this morning, as well as near syncopal episode which occurred yesterday. Patient reports that yesterday while she was walking on a track track, she felt lightheaded, dizzy, and developed chest discomfort and neck pain and felt as though she was going to pass out. She states that her symptoms resolved after resting. She states that this morning she was feeling well, had 2 cups of coffee and then walked 4 laps around the track and felt lightheaded, dizzy, had chest pressure, shortness for breath, felt diaphoretic, and leaned up against a fence, and found herself on the ground. She drove herself to the emergency room today. She states that she has no history of similar symptoms in the past. She states currently she has a is having neck pain, unable to discern whether or not this is a part of her chronic neck pain, she describes her chest feeling ?open?, she denies any current pain. Does report some mild nausea. No known cardiac problems. No family history of any cardiac problems. She is a nonsmoker. No other drug use. No recent travel, surgery, hospitalizations. No history of blood clots in the past. She is not on anticoagulation. No other complaints or concerns at this time. MD complaint: Syncopal episode Onset (ago): day(s) Radiation: non-radiation Quality: aching Pain Consistency: constant Relieving factors: none Exacerbating factors: none Associated symptoms: chest pain, diaphoresis and syncope Treatments prior to arrival: none Related Data Home Medications ?Medication ?Instructions ?Recorded ?Confirmed calcium carbonate (Calcium 500) 500 mg PO DAILY 07/16/20 09/17/24 cholecalciferol (vitamin D3) 10 10 mcg PO DAILY 07/16/20 09/17/24 mcg (400 unit) capsule omega 5-dxq-drd-fish oil 1,000 mg 1 cap PO DAILY 08/25/22 09/17/24 (120 mg-180 mg) capsule (Fish Oil) collagen, hydrolyzed 1 tab PO 11/08/23 09/17/24 gram-ascorbate calcium 10 mg tablet Previous Rx's ?Medication ?Instructions ?Recorded nabumetone 750 mg tablet 750 mg PO BID PRN pain 30 days #60 05/13/24 tabs Allergies Allergy/AdvReac Type Severity Reaction Status Date / Time hydrocodone [From Vicodin] Allergy Mild UNKNOWN Verified 10/08/24 09:07 latex [Latex] Allergy Mild RASH Verified 10/08/24 09:07 carisoprodol AdvReac Mild NAUSEA & Verified 10/08/24 09:07 VOMITING, HEADACHES nabumetone AdvReac Mild Dizziness Verified 10/08/24 09:07 Vicodin AdvReac Unknown vomiting Uncoded 10/08/24 09:07 Review of Systems Review of Systems: Yes all other systems are reviewed and are negative Constitutional: Constitutional: Reports as per [facility] Past Medical History Medical History (Updated 10/08/24 @ 16:52 by JESSICA Brownlee) ASCUS with positive high risk HPV cervical Migraine Surgical History Hx of unilateral oophorectomy Hx of section History of hernia surgery Family History Family History Father HTN (hypertension) Diabetes Mother Diabetes HTN (hypertension) Other Mental health disorder Substance use disorder Social History Social History (Updated 07/04/24 @ 08:59 by Erendira Prescott MD) Household Members: Family Household Members Other:: Daughter Housing: House Alcohol intake: current Alcohol intake frequency: holidays/special occasions only Alcohol type: hard liquor Patient Tobacco Use Status: Never used Tobacco e-Cigarette/Vaping Use: Never Used Second Hand Smoke Exposure: No service: No Current occupational status: unemployed Sexual orientation: Straight/Heterosexual Gender identity: Female Cognitive needs: No Hearing needs: No Vision needs: No Physical Exam ED Vital Signs: Vital Signs - 24 hr 10/08/24 09:03 10/08/24 10:00 10/08/24 10:54 Temperature 97.2 F 97.7 F 97.9 F Pulse Rate 96 84 87 Respiratory Rate 18 17 18 Blood Pressure 121/74 151/79 H 121/80 Pulse Oximetry 97 98 97 Oxygen Delivery Method Room Air Room Air Room Air 10/08/24 10:54 10/08/24 10:55 10/08/24 10:55 Temperature Pulse Rate 88 102 H 126 H Respiratory Rate Blood Pressure 121/80 131/81 131/92 H Pulse Oximetry Oxygen Delivery Method 10/08/24 14:45 10/08/24 14:46 10/08/24 14:46 Temperature Pulse Rate 81 80 96 Respiratory Rate Blood Pressure 131/75 134/83 152/89 H Pulse Oximetry Oxygen Delivery Method 10/08/24 15:58 10/08/24 15:58 10/08/24 16:00 Temperature Pulse Rate 71 88 Respiratory Rate Blood Pressure 141/76 H 139/95 H Pulse Oximetry Oxygen Delivery Method Room Air 10/08/24 16:00 10/08/24 16:00 10/08/24 17:29 Temperature 97.6 F 97.8 F Pulse Rate 100 97 Respiratory Rate 17 17 Blood Pressure 133/91 H 133/91 H Pulse Oximetry Oxygen Delivery Method Room Air BMI result Body Mass Index 27.8 Const General: cooperative, comfortable and no acute distress Orientation/consciousness: patient oriented x3 Limitations: no limitations HENMT Head: Yes normal to inspection, Yes normocephalic and Yes atraumatic Ears: hearing grossly normal bilaterally General nose exam: Normal external nose present Face and sinus: Yes normal facial exam Mouth: Normal oral and palatal mucosa present, oropharynx normal and moist mucous membranes Throat: Yes posterior oropharynx normal Eyes General: appearance normal, both eyes and all related structures Eyelids: Yes eyelids normal Conjunctivae: conjunctivae normal Sclerae: sclerae normal Pupils: Equal, round and reactive pupils present EOM: EOMs intact bilaterally Neck Neck: Yes normal visual inspection, Yes full ROM and Yes no lymphadenopathy Lymphatic: no lymphadenopathy noted Chest Chest palpation & inspection: normal inspection of the chest Resp Effort & Inspection: normal respiratory effort and able to speak in complete sentences Auscultation: clear to auscultation bilaterally, no crackles, no rales, no rhonchi and no wheezes Cardio Rate: regular rate Rhythm: regular rhythm Heart sounds: S1 normal heart sound present and S2 normal heart sound present GI Inspection: Yes normal to inspection Skin General skin exam: no rashes or lesions noted Trauma: no lacerations or abrasions Wounds: no wounds Neuro General: patient oriented x3 and moves all extremities Cranial nerves: Yes Equal, round and reactive pupils present Extrem General: Yes normal to inspection Right upper extremity: normal to inspection Left upper extremity: normal to inspection Right lower extremity: normal to inspection Left lower extremity: normal to inspection Medications Administered Discontinued Medications Generic Name Dose Route Start Last Admin Trade Name Freq PRN Reason Stop Dose Admin Sodium Chloride 1,000 mls @ 999 mls/hr 10/08/24 11:04 10/08/24 12:54 Ns IV 10/08/24 12:04 Infused .Q1H1M ONE Infusion Sodium Chloride 1,000 mls @ 999 mls/hr 10/08/24 13:28 10/08/24 15:30 Ns IVCONT 10/08/24 14:28 Infused .Q1H1M ONE Infusion Sodium Chloride 1,000 mls @ 999 mls/hr 10/08/24 15:02 10/08/24 17:31 Ns IV 10/08/24 16:02 Infused .Q1H1M ONE Infusion Acetaminophen 1,000 mg in 100 mls @ 400 mls/hr 10/08/24 16:43 10/08/24 17:30 Ofirmev IV 10/08/24 16:57 Infused ONCE ONE Infusion Iohexol 100 ml 10/08/24 15:24 10/08/24 15:26 Iohexol 350 Mg/Ml 100 Ml Infus..Btl IV 10/08/24 15:25 70 ml ONCE ONE Administration Medical Decision Making Medical Decision Making MDM Narrative: This is a 49-year-old female, with a history of asthma and degenerative disc disease, who presents emergency department with concerns of near-syncopal episodes x3 yesterday, as well as syncopal episode which occurred your this morning. On arrival, vital signs within normal limits. She is speaking full sentences under no acute distress. Labs were obtained prior to my assessment, she has no leukocytosis, stable H&H, chemistry revealing no evidence of GORDO, slight elevation in BUN, which patient has a history of. Random glucose 163, AST and ALT slightly elevated at 34 and 38, 1st troponin less than 2.7, negative viral swabs. EKG was performed revealing normal sinus rhythm no STEMI appreciated. Discussed findings with my attending physician, Dr. Eckert. History of present illness concerning for anginal equivalent and would benefit from hospitalization with stress test. Will discussed case with machine load clerk, Dr. Augustine, we will also repeat troponin. Orthostatics were performed, she has no change in blood pressure however she has a 24 point change in her heart rate, consistent with orthostatic tachycardia, will medicate with IV fluids. She has no chest pain or shortness for breath at rest. 1151 - patient was seen by machine load clerk, Dr. Augustine. Recommending echocardiogram if echo is normal, may be able to do outpatient stress test. Ordered placed. 1312 - still awaiting echocardiogram, realize that this was placed as routine, ordered stat. 1501 echocardiogram was reviewed by Dr. Augustine, states that is normal, and recommending outpatient stress test and does not need to be admitted. Repeat orthostatics, patient no longer has orthostatic tachycardia however still has a change of 17 beats per minute upon standing, will medicate with 1 more L of fluids. I discussed with patient that she was complaining about symptoms with positional changes. She states that she has pressure in her head as well as her neck, which is something that she is new in experiencing. Given this, I discussed is my attending physician, Dr. Eckert. Will obtain CT CTA to rule out aneurysm and or ICH. 1648 - patient seen and evaluated by my attending physician, Dr. Eckert. Patient's CTA revealing no acute findings. Patient's symptoms likely attributed to orthostatic tachycardia, repeat orthostatics after 2nd bag fluids reveal good improvement, still a change of 17 points, she is already receiving per L. , will administer IV Tylenol. She reports that she does have chronic neck pain, and believes that this is likely exacerbated by lying in the bed for the last several hours. 1730 - discussed overall workup with patient, and male forest law and policy professor at bedside. Her overall workup today was reassuring. Stressed the importance of following up with cardiology outpatient for a stress test, advised to call tomorrow to make an appointment. Also urged to not exercise or do any strenuous work until she is seen by Cardiology. She understands and agrees with plan. She was given strict return precautions, and urged to call 911 if she develops any new or worsening symptoms. She and her partner understand and agree with this plan. Patient stable for discharge. 10/08/2024 at 17:30 hours, Dr. Jorge Eckert' note: I, Dr. Jorge Eckert, personally evaluated and examined the patient. 49-year-old female with a history of asthma, DJD, presents emergency department for evaluation of 3 episodes of syncope yesterday and 1 this morning. These episodes occurred while she was running around track to exercise. She was also complaining of a headache and neck pain. Patient's physical examination was unremarkable except for orthostatic vital signs that revealed a greater than 20 point increase in her heart rate from sitting to standing. Patient was treated with normal saline IV x3 L and acetaminophen 100 mg IV. Laboratory evaluation did not reveal any specific abnormalities to explain her syncopal episodes. Cardiology recommended echocardiogram which revealed no significant abnormalities. Patient's EKG was also unremarkable. Patient's syncopal episode was most likely caused by vasovagal syncope or orthostatic hypotension. Did discuss this with the patient and the patient's significant other. Patient was discharged home with follow-up with cardiology for further evaluation of her orthostatic hypotension and syncope. I did review reviewed the physician clinic assistant's documentation and I was available to supervise her during the entire course of the patient's stay in the emergency department, I agree with the treatment plan and with the discharge plan Differential Diagnosis Differential Diagnoses: The differential diagnosis associated with the presentation includes ACS, electrolyte derangement, anginal equivalent, unstable angina, stable angina Admission/Observation Consideration of admission/observation: Escalation of care including admission/observation considered Consult Healthcare Provider Management of the patient was discussed with: Pharmacy Retail Support Specialist Dr. Augustine Lab Data [facility] Lab Attestation statement: I reviewed the patient's lab results. See MDM and course comment 10/08/24 09:35 10/08/24 09:35 Labs: Lab Results 10/08/24 10/08/24 10/08/24 Range/Units 09:31 09:35 09:36 WBC 4.9 (4.8-10.8) X10*3/uL RBC 4.82 (4.20-5.50) X10*6/uL Hgb 14.3 (12.0-16.0) g/dl Hct 42.7 (37.0-47.0) % MCV 88.6 (80.0-98.0) fL MCH 29.7 (27.0-33.0) pg MCHC 33.5 (31.0-35.0) g/dl RDW 12.3 (11.0-16.0) % Plt Count 204 (160-400) X10*3/uL MPV 9.9 (9.4-12.3) fL Immature Gran % (Auto) 0.2 (0.0-0.4) % Neut % (Auto) 51.6 (45-73) % Lymph % (Auto) 35.6 (20-40) % [place] % (Auto) 8.1 (2-11) % Eos % (Auto) 3.9 (0-4) % Baso % (Auto) 0.6 (0-2) % Lymph # (Auto) 1.8 (1.2-4.9) X10*3/uL [place] # (Auto) 0.4 (0.1-1.2) X10*3/uL Eos # (Auto) 0.2 (0.0-0.4) X10*3/uL Baso # (Auto) 0.0 (0.0-0.2) X10*3/uL Abs Immat Gran (auto) 0.01 (0.00-0.03) X10*3/uL Absolute Neuts (auto) 2.5 (2.0-8.3) x10*3/uL Absolute Nucleated RBC 0.000 (0.0-0.012) X10*3/uL Nucleated RBC % (auto) 0.0 (0.0-0.2) /100WBC PT 13.4 H (10.9-12.4) SEC INR 1.2 H (0.9-1.1) Sodium 139 (135-145) mmol/L Potassium 4.7 (3.3-5.1) mmol/L Chloride 106 (96-108) mmol/L Carbon Dioxide 27 (22-29) mmol/L Anion Gap 11 L (12-20) BUN 18 H (9-16) mg/dL Creatinine 0.65 (0.5-1.4) mg/dL Estim Creat Clear Calc 110.3 Estimated GFR > 60 Random Glucose 163 H (60-115) mg/dL Calcium 9.7 (8.4-10.2) mg/dL Total Bilirubin 0.5 (0.0-1.0) mg/dL AST 34 H (5-31) U/L ALT 38 H (0-31) U/L Alkaline Phosphatase 82 (39-117) U/L Troponin I High Sens < 2.7 (<3.5-17.0) ng/L B-Natriuretic Peptide 13 (<100) pg/mL Total Protein 7.6 (6.5-8.0) g/dL Albumin 4.6 (3.5-5.0) g/dL Influenza Type A (PCR) NEGATIVE (Negative) Influenza Type B (PCR) NEGATIVE (Negative) RSV RNA Qual (PCR) NEGATIVE (Negative) SARS-CoV-2 RNA (RT-PCR) NEGATIVE (Negative) 10/08/24 Range/Units 11:50 WBC (4.8-10.8) X10*3/uL RBC (4.20-5.50) X10*6/uL Hgb (12.0-16.0) g/dl Hct (37.0-47.0) % MCV (80.0-98.0) fL MCH (27.0-33.0) pg MCHC (31.0-35.0) g/dl RDW (11.0-16.0) % Plt Count (160-400) X10*3/uL MPV (9.4-12.3) fL Immature Gran % (Auto) (0.0-0.4) % Neut % (Auto) (45-73) % Lymph % (Auto) (20-40) % [place] % (Auto) (2-11) % Eos % (Auto) (0-4) % Baso % (Auto) (0-2) % Lymph # (Auto) (1.2-4.9) X10*3/uL [place] # (Auto) (0.1-1.2) X10*3/uL Eos # (Auto) (0.0-0.4) X10*3/uL Baso # (Auto) (0.0-0.2) X10*3/uL Abs Immat Gran (auto) (0.00-0.03) X10*3/uL Absolute Neuts (auto) (2.0-8.3) x10*3/uL Absolute Nucleated RBC (0.0-0.012) X10*3/uL Nucleated RBC % (auto) (0.0-0.2) /100WBC PT (10.9-12.4) SEC INR (0.9-1.1) Sodium (135-145) mmol/L Potassium (3.3-5.1) mmol/L Chloride (96-108) mmol/L Carbon Dioxide (22-29) mmol/L Anion Gap (12-20) BUN (9-16) mg/dL Creatinine (0.5-1.4) mg/dL Estim Creat Clear Calc Estimated GFR Random Glucose (60-115) mg/dL Calcium (8.4-10.2) mg/dL Total Bilirubin (0.0-1.0) mg/dL AST (5-31) U/L ALT (0-31) U/L Alkaline Phosphatase (39-117) U/L Troponin I High Sens < 2.7 (<3.5-17.0) ng/L B-Natriuretic Peptide (<100) pg/mL Total Protein (6.5-8.0) g/dL Albumin (3.5-5.0) g/dL Influenza Type A (PCR) (Negative) Influenza Type B (PCR) (Negative) RSV RNA Qual (PCR) (Negative) SARS-CoV-2 RNA (RT-PCR) (Negative) Independent Interpretation I performed an independent interpretation of an: EKG Interpretation: 1st EKG performed at 921 normal sinus rhythm at a ventricular rate of 88 beats per minute, no ST elevation seen. Second EKG performed at 1045, ventricular rate of 91 beats per minute, [place] interval 150, QT QTC 366/450, no STEMI. Radiology Impression Discussion of test interpretation with radiology: I have reviewed the radiologist's reading. Radiologist Impression: CLINICAL INFORMATION: Head pressure and syncope. COMPARISON: None available. TECHNIQUE: Following IV injection of 70 mL Omnipaque 350, thick 3 mm axial neck and 2 within axial brain imaging was performed. Sagittal and coronal 8 mm thick reconstructions performed. The degree of stenosis determined by NASCET criteria. This CT examination was performed using dose optimization techniques as appropriate, variously including the following: *Automated exposure control *Adjustment of mA and/or kV according to patient size (this includes techniques or standardized protocols for targeted exams where dose is matched to indication/reason for exam; i.e. extremities or head) *Use of iterative reconstruction technique FINDINGS: Noncontrast CT brain. There is no acute intra-axial, extra-axial bleed, masses or midline shift. The lateral ventricles are symmetrical in size and configuration without enlargement. There is normal mayes to white matter differentiation seen. Bone windows reveal no calvarial abnormality. No scalp soft tissue abnormality seen. Mild mucoperiosteal thickening bilateral anterior ethmoids sinuses are noted. Mastoid and rest of the paranasal sinuses are clear. Postcontrast CT brain: There is no enhancing mass, mass effect or edema. No abnormal shunting of vascularity seen to suspect any AVM. No dural enhancement seen. CTA brain.: Both internal carotid arteries, bifurcation and anterior middle cerebral arteries are widely patent. Both vertebral arteries are patent with mild anechoic degenerative of the right vertebral artery. The basilar artery and its branches are widely patent. There is no aneurysm or dissection seen. Normal vascularity seen in the supratentorial and infratentorial brain. CTA NECK: The thoracic arch is of normal caliber. There is normal three-vessel branching of the aortic arch with widely patent right brachiocephalic, left common carotid and left subclavian arteries. The common bilateral common carotid arteries are widely patent. There is normal branching into internal and external carotid arteries are widely patent. Bilateral internal carotid arteries are widely patent throughout the neck, petrous, cavernous and supraclinoid ICA segments. No aneurysm or dissection seen. Both vertebral arteries are codominant and patent in the neck extending intracranially. CT NECK: No gross neck mass or abnormal lymphadenopathy seen. The trachea is widely patent. Thyroid lobes are symmetrical and normal. Bilateral parotid and submandibular glands are widely patent. The nasopharyngeal, pharyngeal airway is widely patent. There are mild degenerative disc changes C4-5, C5-6 and C6/7 disc levels with ventral and posterior spondylosis. CT/CT angio head neck IMPRESSION: Unremarkable CTA neck and brain exam. Electronically signed by: Ameya Branch MD 10/08/2024 04:11 PM EDT Dictated By: Ameya Branch MD FINDINGS: Lungs are clear and well expanded. There is no pleural effusion. Heart size is within normal limits. Mediastinal and hilar contours are within normal limits. Bony structures are unremarkable aside from mild degenerative changes in the midthoracic spine.. XR/XR chest 2V IMPRESSION: No acute disease. Electronically signed by: Norris Hutchinson MD 10/08/2024 11:41 AM EDT RP Dictated By: Norris Hutchinson MD Conclusions: - The left ventricular systolic function is normal. The calculated ejection fraction is 64% by biplane method. - No obvious valvular pathology seen on this study. Findings Left Ventricle Normal left ventricular cavity size. There is normal left ventricular wall thickness. The left ventricular systolic function is normal. The calculated ejection fraction is 64% by biplane method. There is no evidence of regional wall motion abnormalities. Diastolic function is normal for age. There is mild septal asymmetric hypertrophy. Right Ventricle Normal right ventricular cavity size and systolic function. Atria Both atria are normal in size. Aortic Valve There is a normal trileaflet aortic valve. There is no aortic valve stenosis. There is no aortic valve regurgitation. Mitral Valve The mitral valve appears normal. There is no mitral valve regurgitation. There is no mitral valve stenosis. Pulmonic Valve The pulmonic valve is likely normal. Tricuspid Valve There is trace tricuspid valve regurgitation. There is no evidence of pulmonary hypertension. Great Vessels The asc aorta is normal in size. Venous The inferior vena cava is normal in size and collapses greater than 50% with inspiration. Pericardium/Pleural There is no evidence of pericardial effusion. Prior Study Comparison No prior study available for comparison. Recommendations, Care & Conclusions No obvious valvular pathology seen on this study. Independent Historian Clinical information obtained from an independent historian. History obtained from or confirmed by: Spouse Critical Care Time Critical Care Time Critical Care Time: Yes Total Critical Care Time: 35 Attestation: I have personally provided critical care time exclusive of time spent on separately billable procedures. Time includes review of lab data, radiology results, discussion with consultants, and monitoring for potential decompensation. Intervention performed as documented. Discharge Plan Discharge Clinical Impression: Syncope Patient Disposition: Home, Self-Care Instructions: Syncope (ED) Additional Instructions: You were seen in the emergency department after a syncopal episode. Your workup today was reassuring. You did have a finding known as orthostatic tachycardia, which improved after receiving IV fluids. Your CT head and neck were normal. Your echo did not show any abnormalities, this was reviewed by our machine load clerk. You need to follow-up with the machine load clerk, as you need an outpatient stress test per the machine load clerk. Call tomorrow to make an appointment. Do not exercise until you are seen by the machine load clerk. If any new or worsening symptoms occur including but not limited to severe chest pain, shortness of breath, near syncopal episode, or any other symptoms, please call 911. Prescriptions: No Action cholecalciferol (vitamin D3) 10 mcg (400 unit) capsule 10 mcg PO DAILY calcium carbonate [Calcium 500] 500 mg calcium (1,250 mg) tablet 500 mg PO DAILY omega 3-kqg-nmy-fish oil [Fish Oil] 1,000 mg (120 mg-180 mg) capsule 1 cap PO DAILY collagen,hydrolyz-ascorbate Ca 1 gram- 10 mg tablet PO nabumetone 750 mg tablet 750 mg PO BID PRN (Reason: pain) 30 Days Qty: 60 0RF Referrals: [facility] [place] [facility] [Provider Group] Interventions: ED Discharge Assessment Last Done: 10/08/24 17:29 Discharge Date/Time: 10/08/24 17:38 Print Language: Kitt[place]
[2024-10-08 10:27] LABS: Influenza A PCR NEGATIVE (Negative); Influenza B PCR NEGATIVE (Negative); Resp Syncy Virus RNA Qual PCR NEGATIVE (Negative); SARS COV2 PCR INHOUSE NEGATIVE (Negative)
--- OUTSIDE RECORDS SUMMARY | 2024-10-08 10:46 | XMS_ITS | Patient Health Record ---
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 Name Role Phone Haider Styles MD Primary Care Provider Etienne Geronimo [phone] Allergies Allergen (clinical drug ingredient) Drug/Non Drug Allergy documented on EMR Reaction Allergy Type Onset Date Status Vicodin nausea Drug Allergy Active adhesive tape red & itchy Drug Allergy A ctive Latex red & itchy Drug Allergy Activ e Reason For Referral No Information Medications Medication SIG (Take, Route, Fr equency, Duration) Notes Start Date End Date Status Magnesium 400 MG Orally Act maria g Vitamin D 1000 UNIT Orally Active Zinc 15 MG Orally Active Apri 28 day control Active Calcium 1000mg Activ e Social History Tobacco Use: Social History Observation Description Date Details (start date - stop date) Never Smoker NA - NA Tobacco Use/Smoking Question Answer Notes Are you a: nonsmoker Additional Findings: Tobacco Non-User Current no n-smoker Alcohol Screen Question Answer Notes Did you have a drink containing alcohol in the p ast year? No Points 0 Interpretation Negative Tobacco use other than smoking: Question Answer Notes Are you an other tobacco user? No Problems Problem Type SNOMED Code ICD Code Onset Dates Problem Status W/U Status Risk Notes Problem Acquired hallux valgus (67325922) Hallux valgus (acquired), left foot (M20.12) Active confirmed Problem Acquired hallux valgus (35652741) Hallux valgus (acquired), right foot (M20.11) Active confirmed Plan Of Treatment Pending Test Test Name Order Date X ray : Foot, right 2V 11/16/2016 Insurance Providers Payer Name Payer Address Payer Phone Subscriber Number Group Number Insured Name Patient Relationship to Insured Coverage Start Date Coverage End Date [facility] [address] [place] [address] [phone] [id number] Kary Stevens Self - patient is the insured Medical (General) History Medical History History ICD Code asthma Back,Hip,and Knee pain Headaches Chicken pox STDs Surgical History Surgery Date(Month/Year) DERMOSIS LEFT OVARY 2006
[2024-10-08 11:38] LABS: B Type Natriuretic Peptide 13 pg/mL (<100)
[2024-10-08] MEDS: 0.9 % Sodium Chloride 1,000 ML 999 ML IV ×2 (11:53→15:55)
--- NOTE | 2024-10-08 11:55 | PM.CNCAR ---
History of Present Illness History of Present Illness Date of Service: 10/08/24 Chief complaint: Passed out earlier, hit head/elbow Narrative: This is a cardiology consultation regarding syncopal episodes. Patient does not have any known cardiac issues. No known coronary disease or myocardial infarction or cardiomyopathy or in fact anything of cardiac nature. She has been doing exercise like walking on a track. For the last several months, she has been having various symptoms. She states that she has been feeling dizzy and had some neck discomfort. She felt as though her chest was opening up. These type symptoms have happened several times but more prominent this time and hence in the ER. She apparently had to lean against a fence and then found herself on the ground. So far, workup in the emergency room including EKG, troponin, cardiac BNP has been within range. During orthostatic testing, she had sinus tachycardia on standing up. Review of Systems Review of Systems: Yes all other systems are reviewed and are negative Constitutional: Constitutional: Reports as per HPI and Reports no additional constitutional complaints Eyes: Eyes: Reports as per HPI and Denies no additional eye complaints ENT: Denies system reviewed and no additional complaints, except as documented and Reports as per HPI Cardiovascular: Cardiovascular: Reports as per HPI, Reports no additional cardiovascular complaints, Denies acrocyanosis, Denies cool extremities, Denies chest pain, Denies leg edema, Reports lightheadedness, Denies palpitations and Denies dyspnea Respiratory: Respiratory: Reports as per HPI, Denies no additional respiratory complaints and Denies dyspnea Gastrointestinal: Gastrointestinal: Reports as per HPI and Denies no additional gastrointestinal complaints Genitourinary: Genitourinary: Reports as per HPI Musculoskeletal: Musculoskeletal: Reports no additional musculoskeletal complaints and Reports as per HPI Integumentary/Breasts: Skin/Breast: Reports system reviewed and no additional complaints, except as docu Neurologic: Reports system reviewed and no additional complaints, except as documented and Reports as per HPI Psychiatric: Psychiatric: Reports no additional psychiatric complaints and Reports as per HPI Endocrine: Endocrine: Reports no additional endocrine complaints, Reports as per HPI and Denies palpitations Hematologic/Lymphatic: Hematologic/Lymphatic: Reports no additional hematologic/lymphatic complaints and Reports as per HPI Allergic/Immunologic: Allergic/Immunologic: Reports no additional allergic/immunologic complaints and Reports as per HPI [facility] Past Medical History Medical History (Updated 10/08/24 @ 12:03 by Cuauhtemoc Augustine MD) ASCUS with positive high risk HPV cervical Migraine Family History Family History Father HTN (hypertension) Diabetes Mother Diabetes HTN (hypertension) Other Mental health disorder Substance use disorder Surgical History Surgical History Hx of unilateral oophorectomy Hx of section History of hernia surgery Social History Social History (Updated 07/04/24 @ 08:59 by Erendira Prescott MD) Household Members: Family Household Members Other:: Daughter Housing: House Alcohol intake: current Alcohol intake frequency: holidays/special occasions only Alcohol type: hard liquor Patient Tobacco Use Status: Never used Tobacco Smoked in Last 30 Days: No e-Cigarette/Vaping Use: Never Used Second Hand Smoke Exposure: No Use of substances other than those prescribed or required for medical reasons: No Advance Directives: No Advance Directives Information Provided: No Patient : No service: No Current occupational status: unemployed Sexual orientation: Straight/Heterosexual Gender identity: Female Cognitive needs: No Hearing needs: No Vision needs: No Meds Allergies Allergy/AdvReac Type Severity Reaction Status Date / Time hydrocodone [From Vicodin] Allergy Mild UNKNOWN Verified 10/08/24 09:07 latex [Latex] Allergy Mild RASH Verified 10/08/24 09:07 carisoprodol AdvReac Mild NAUSEA & Verified 10/08/24 09:07 VOMITING, HEADACHES nabumetone AdvReac Mild Dizziness Verified 10/08/24 09:07 Vicodin AdvReac Unknown vomiting Uncoded 10/08/24 09:07 Active Medications: Current Medications Sodium Chloride (Ns) 1,000 mls @ 999 mls/hr IV .Q1H1M ONE Stop: 10/08/24 12:04 Last Admin: 10/08/24 11:53 Dose: 999 mls/hr Home Medications ?Medication ?Instructions ?Recorded ?Confirmed ?Last Taken ?Type calcium carbonate (Calcium 500) 500 mg PO DAILY 07/16/20 09/17/24 Unknown History cholecalciferol (vitamin D3) 10 10 mcg PO DAILY 07/16/20 09/17/24 Unknown History mcg (400 unit) capsule omega 4-kqx-zgu-fish oil 1,000 mg 1 cap PO DAILY 08/25/22 09/17/24 Unknown History (120 mg-180 mg) capsule (Fish Oil) collagen, hydrolyzed 1 tab PO 11/08/23 09/17/24 Unknown History gram-ascorbate calcium 10 mg tablet Physical Exam Vital Signs: Vital Signs: Last Vital Signs Temp 97.9 F 10/08/24 10:54 Pulse 126 H 10/08/24 10:55 Resp 18 10/08/24 10:54 BP 131/92 H 10/08/24 10:55 Pulse Ox 97 10/08/24 10:54 O2 Del Method Room Air 10/08/24 10:54 BMI result Body Mass Index 27.8 Const: General: comfortable and no acute distress Orientation/consciousness: patient oriented x3 HEENT: Other: Unremarkable Head: Yes normal to inspection Neck: Neck: Yes normal visual inspection Chest: Chest palpation & inspection: normal inspection of the chest Resp: Auscultation: clear to auscultation bilaterally Cardio: Palpation: normal PMI Heart sounds: S1 normal heart sound present, S2 normal heart sound present, no gallops, no murmurs and no rubs GI: Palpation (GI): Soft to palpation Back/Spine/Pelvis: Other: unremarkable Skin: General skin exam: no rashes or lesions noted Neuro: General: patient oriented x3 Extrem: General: Yes normal to inspection Psych: Mental Status: mental status grossly normal Objective Labs and Meds 10/08/24 09:35 10/08/24 09:35 Lab results: Laboratory Results - last 24 hr 10/08/24 10/08/24 10/08/24 09:31 09:35 09:36 WBC 4.9 RBC 4.82 Hgb 14.3 Hct 42.7 MCV 88.6 MCH 29.7 MCHC 33.5 RDW 12.3 Plt Count 204 MPV 9.9 Immature Gran % (Auto) 0.2 Neut % (Auto) 51.6 Lymph % (Auto) 35.6 Bureau % (Auto) 8.1 Eos % (Auto) 3.9 Baso % (Auto) 0.6 Lymph # (Auto) 1.8 Bureau # (Auto) 0.4 Eos # (Auto) 0.2 Baso # (Auto) 0.0 Abs Immat Gran (auto) 0.01 Absolute Neuts (auto) 2.5 Absolute Nucleated RBC 0.000 Nucleated RBC % (auto) 0.0 PT 13.4 H INR 1.2 H Sodium 139 Potassium 4.7 Chloride 106 Carbon Dioxide 27 Anion Gap 11 L BUN 18 H Creatinine 0.65 Estim Creat Clear Calc 110.3 Estimated GFR > 60 Random Glucose 163 H Calcium 9.7 Total Bilirubin 0.5 AST 34 H ALT 38 H Alkaline Phosphatase 82 Troponin I High Sens < 2.7 B-Natriuretic Peptide 13 Total Protein 7.6 Albumin 4.6 Influenza Type A (PCR) NEGATIVE Influenza Type B (PCR) NEGATIVE RSV RNA Qual (PCR) NEGATIVE SARS-CoV-2 RNA (RT-PCR) NEGATIVE ECG Interpretation: EKG with underlying sinus rhythm at 91/Min; no ischemic findings; normal IA and corrected QT. Imaging Radiologist's impression: Impressions Chest X-Ray 10/08/24 11:28 IMPRESSION: No acute disease. Electronically signed by: Norris Hutchinson MD 10/08/2024 11:41 AM EDT RP Assessment and Plan (1) Syncope and collapse: Status: Acute Plan Initial high sensitivity troponin normal. Second set is pending. Cardiac BNP is normal at 13. Clinical exam is unremarkable. During orthostatic check, blood pressure is stable. Pulse rate went from 88-100-126. Overall, there is evidence of orthostatic tachycardia but no other clear objective cardiac findings. We will get an echocardiogram as well. If this shows normal LVEF, then next step would be to get a stress test and possibly a tilt-table test as well. Discussed with patient about plan and she states she would rather go home today after the echocardiogram and get further tests rather as an outpatient. If any recurring symptoms, advised to come back to the ER. We will review the echocardiogram once completed. Procedures Date of Service Date of Service: 10/08/24
[2024-10-08 12:30] LABS: Troponin-I High Sensitivity < 2.7 ng/L (<3.5-17.0)
--- NOTE | 2024-10-08 13:05 | CA_ITS ---
Transthoracic Echocardiogram Patient (Last, First, Middle): Kary Li R Gender: Female Date of : 1975 Age: 49 Procedure Date: 10/08/2024 Procedure Type: Transthoracic Echocardiogram Location: ER Height: 167.64 cm Weight: 77.57 kg BSA: 1.87 m2 Heart Rate: bpm BP: 131 / 92 mmHg Table Maker: Referring MD: Dona LOPEZ Symptoms: syncope Study Quality: Good ECG Rhythm: Sinus Conclusions: - The left ventricular systolic function is normal. The calculated ejection fraction is 64% by biplane method. - No obvious valvular pathology seen on this study. Findings Left Ventricle Normal left ventricular cavity size. There is normal left ventricular wall thickness. The left ventricular systolic function is normal. The calculated ejection fraction is 64% by biplane method. There is no evidence of regional wall motion abnormalities. Diastolic function is normal for age. There is mild septal asymmetric hypertrophy. Right Ventricle Normal right ventricular cavity size and systolic function. Atria Both atria are normal in size. Aortic Valve There is a normal trileaflet aortic valve. There is no aortic valve stenosis. There is no aortic valve regurgitation. Mitral Valve The mitral valve appears normal. There is no mitral valve regurgitation. There is no mitral valve stenosis. Pulmonic Valve The pulmonic valve is likely normal. Tricuspid Valve There is trace tricuspid valve regurgitation. There is no evidence of pulmonary hypertension. Great Vessels The asc aorta is normal in size. Venous The inferior vena cava is normal in size and collapses greater than 50% with inspiration. Pericardium/Pleural There is no evidence of pericardial effusion. Prior Study Comparison No prior study available for comparison. Recommendations, Care & Conclusions No obvious valvular pathology seen on this study. Measurements 2D Linear Measurements IVSd: 1.12 0.6-0.9/0.6-1.0 cm LVIDd: 4.24 3.9-5.3/4.2-5.9 cm LVIDd Index: 2.27 2.4-3.2/2.2-3.1 cm/m2 LVIDs: 2.66 2.0-3.6 cm LVPWd: 1.02 0.7-1.1 cm Ao Root: 3.20 2.1-3.5 cm LA Diam: 3.00 2.7-3.8/3.0-4.0 cm LAIDs Index: 1.60 1.5-2.3 cm/m2 LV Mass: 190.81 67-162/88-224 g LV Mass Index: 102.04 43-95/49-115 g/m2 LVOT Diam: 2.30 3.0+(-)1.3 cm 2D Systolic Function EF 4C: 65.90 >55% EF 2C: 63.90 >55% EF BiP: 64.20 >55% Mitral Valve MV Pk E: 0.51 MV PK A: 0.57 MV Decel Time: 178.00 E/A: 0.90 E'Lateral: 8.49 E'Medial: 6.53 E/E' Med: 7.80 E/E' Lat: 6.00 PHT: 52.00 MVA PHT: 4.23 Decel [place]: 2.87 Aortic Valve AoV Pk Asim: 1.33 AoV Mn Asim: 0.85 AoV VTI: 0.29 AoV Pk Grad: 7.00 Aov Mn Grad: 4.00 JUSTIN Cont.VTI: 3.31 LVOT LVOT Pk Asim: 1.09 LVOT Mn Asim: 0.73 LVOT VTI: 0.23 LVOT Pk Grad: 5.00 LVOT Mn Grad: 3.00 LVOT Diam: 2.30 LVOT Area: 4.15 Diastolic Function MV Pk E: 0.51 MV Pk A: 0.57 E/A: 0.90 E'Medial: 6.53 E/E' Med: 7.80 E' Laterial: 8.49 E/E' Lat: 6.00 Right Ventricle TAPSE (mm): 31.00 TVS' Asim: 11.00 Tricuspid Valve TR Pk Asim: 2.23 TR Pk Grad: 20.00 RA Press: 3.00 RVSP: 23.00 Great Vessels Aorta Ao Root-2D: 3.20 2.0-3.7 cm Ao Asc: 3.10 2.1-3.4 cm Pulmonary Valve PV Pk Asim: 1.02 Peak PV Grad: 4.00 Updated in Other Vendor System with Status of Final Cuauhtemoc Augustine MD electronically signed on 10/08/2024 2:29:27 PM with status of Final
[2024-10-08] MEDS: 0.9 % Sodium Chloride 1,000 ML 999 ML IVCONT (14:06)
[2024-10-08] MEDS: iohexoL 350 MG/ML 100 ML INFUS..BTL IV (15:26)
[2024-10-08] MEDS: Acetaminophen 1,000 MG/100 ML PIGGYBACK 400 MG IV (17:01)
== END 2024-10-08 17:38 | disposition home or self-care (01) ==
PROVIDERS: Physician Assistant Medical; Emergency Provider Emergency Medicine Emergency Medical Services; PCP Internal Medicine
DX: R55 Syncope and collapse (principal); I95.1 Orthostatic hypotension; R06.02 Shortness of breath; R07.9 Chest pain, unspecified; J45.909 Unspecified asthma, uncomplicated; Z03.818 Encounter for observation for suspected exposure to other biological agents ruled out
CPT/HCPCS: 0241U; 36415; 70496; 70498; 71046; 80053; 83880; 84484; 85025; 85610; 93005; 93306; 96361; 96374; 99285; J0131; Q9957; Q9967

== ENCOUNTER → 2024-10-08 09:37 | Outpatient (BNV) | payer OTHER, SELFPAY | PROVIDERS: Emergency Provider Emergency Medicine Emergency Medical Services; PCP Internal Medicine; Visit Provider Internal Medicine | DX: I42.2 Other hypertrophic cardiomyopathy (principal); R00.2 Palpitations; R55 Syncope and collapse | CPT/HCPCS: 93010; 93306; 99283 ==

== ENCOUNTER → 2024-10-08 10:45 | Outpatient (BNV) | payer OTHER, SELFPAY | PROVIDERS: Emergency Provider Emergency Medicine Emergency Medical Services; PCP Internal Medicine; Visit Provider Radiology Diagnostic Radiology | DX: R55 Syncope and collapse (principal); R51.9 Headache, unspecified; R07.9 Chest pain, unspecified | CPT/HCPCS: 70496; 70498 ==

== ENCOUNTER → 2024-10-09 18:06 | Outpatient (BNV) | payer OTHER, SELFPAY | PROVIDERS: PCP Internal Medicine; Visit Provider Radiology Vascular & Interventional Radiology | DX: M51.369 Other intervertebral disc degeneration, lumbar region without mention of lumbar back pain or lower extremity pain (principal); M48.061 Spinal stenosis, lumbar region without neurogenic claudication | CPT/HCPCS: 72148 ==

== ENCOUNTER 2024-10-09 18:07 | Outpatient (REF) | payer OTHER, SELFPAY ==
--- NOTE | ~2024-10-09 | MR_ITS ---
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 Disc space narrowing and disc desiccation noted diffusely. The conus terminates normally at L1. The cauda equina are unremarkable. Paravertebral soft tissues are within normal limits. Visualized retroperitoneal structures are unremarkable. Individual levels: T12-L1: Moderate posterior disc protrusion. Mild left neural foraminal narrowing. No central canal stenosis. L1-L2: Moderate posterior disc protrusion. Mild right neural foraminal narrowing. No central canal stenosis. L2-L3: Moderate posterior disc protrusion with significant facet hypertrophy and ligamentum flavum thickening. There is moderately severe central canal stenosis at this level, axial 23 and there is moderate right neural foraminal narrowing. L3-L4: Severe central canal stenosis, axial 29. This is secondary to a posterior disc protrusion and significant facet hypertrophy. There is also moderate neural foraminal narrowing at this level, [id number]. L4-L5: Moderate broad-based disc protrusion with facet hypertrophy. Moderate central canal stenosis and mild bilateral neural foraminal narrowing. L5-S1: Right eccentric disc protrusion. Moderate bilateral neural foraminal narrowing. No significant central canal narrowing. Impression: Advanced degenerative changes diffusely. There is central canal stenosis most pronounced at L2-L3 and L3-L4. This document has been electronically signed by: Henri Velazquez MD on 10/10/2024 12:47:28
--- OUTSIDE RECORDS SUMMARY | 2024-10-09 18:11 | XMS_ITS | Patient Health Record ---
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 Name Role Phone Haider Styles MD Primary Care Provider Etienne Geronimo [phone] Allergies Allergen (clinical drug ingredient) Drug/Non Drug [...] Status Risk Notes Problem Acquired hallux valgus (85030538) Hallux valgus (acquired), left foot (M20.12) Active confirmed Problem Acquired hallux valgus (25748050) Hallux valgus (acquired), right foot (M20.11) Active confirmed Plan Of Treatment Pending Test Test Name Order Date X ray : Foot, right 2V 11/16/2016 Insurance Providers Payer Name Payer Address Payer Phone Subscriber Number Group Number Insured Name Patient Relationship to Insured Coverage Start Date Coverage End Date [facility] [address] [facility] [place] [address] [phone] [id number] Kary Stevens Self - patient is the insured Medical (General) History Medical History History ICD Code asthma Back,Hip,and Knee pain Headaches Chicken pox STDs Surgical History Surgery Date(Month/Year) DERMOSIS LEFT OVARY 2006
== END 2024-10-09 18:08 | disposition home or self-care (01) ==
LOC: HO.MRI 18:07
PROVIDERS: PCP Internal Medicine; Visit Provider Physician Assistant
DX: M47.816 Spondylosis without myelopathy or radiculopathy, lumbar region (principal)
CPT/HCPCS: 72148

== ENCOUNTER 2024-10-14 13:39 | Outpatient (REF) | payer OTHER, SELFPAY ==
--- OUTSIDE RECORDS SUMMARY | 2024-10-14 15:26 | XMS_ITS | Patient Health Record ---
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 Name Role Phone Haider Styles MD Primary Care Provider Etienne Geronimo [phone] Allergies Allergen (clinical drug ingredient) Drug/Non Drug [...] Status Risk Notes Problem Acquired hallux valgus (37708233) Hallux valgus (acquired), left foot (M20.12) Active confirmed Problem Acquired hallux valgus (18035995) Hallux valgus (acquired), right foot (M20.11) Active confirmed Plan Of Treatment Pending Test Test Name Order Date X ray : Foot, right 2V 11/16/2016 Insurance Providers Payer Name Payer Address Payer Phone Subscriber Number Group Number Insured Name Patient Relationship to Insured Coverage Start Date Coverage End Date [facility] [address] [place] [place] [address] [phone] [id number] Kary Stevens Self - patient is the insured Medical (General) History Medical History History ICD Code asthma Back,Hip,and Knee pain Headaches Chicken pox STDs Surgical History Surgery Date(Month/Year) DERMOSIS LEFT OVARY 2006
== END 2024-10-14 13:40 | disposition home or self-care (01) ==
LOC: HO.MAMMO 13:39
PROVIDERS: PCP Internal Medicine; Visit Provider Internal Medicine
DX: Z12.31 Encounter for screening mammogram for malignant neoplasm of breast (principal)
CPT/HCPCS: 77063; 77067

== ENCOUNTER → 2024-10-14 14:00 | Outpatient (BNV) | payer OTHER, SELFPAY | PROVIDERS: PCP Internal Medicine; Visit Provider Internal Medicine | DX: Z12.31 Encounter for screening mammogram for malignant neoplasm of breast (principal) | CPT/HCPCS: 77063; 77067 ==

== ENCOUNTER → 2024-10-17 14:32 | Outpatient (BNVA) | payer OTHER, SELFPAY | PROVIDERS: PCP Internal Medicine; Visit Provider Physician Assistant | DX: M48.061 Spinal stenosis, lumbar region without neurogenic claudication (principal) | CPT/HCPCS: 99212 ==

== ENCOUNTER → 2024-11-07 08:03 | Outpatient (REF) | payer OTHER, SELFPAY ==
--- NOTE | 2024-11-07 08:05 | CA_ITS ---
Acquisition Time: 2024-11-07 08:19:06 Total Exercise Time: 00:09:00 Test Indications: Syncope Medications: SEE H&P Protocol: FERNANDO Max HR: 144 BPM 84% of Pred: 171 BPM Max BP: 140/80 mmHG Max Work Load: 10.1 METS Exercise stress test with exercise 9 mins of Fernando Protocol, achieving 84% MPHR, with reports of dizziness, tightness around the head and neck, and 3/10 chest tightness, with isolated PACs and PVCs, with normotenisve reposnse to exercise. Without EKG changes meeting criteria for ischemia. In recovery, pt's chest tightness resolved quickly and other symptoms gradually improving. Will recommend stress echo for further evaluation. Test reviewed with Dr. Raza. Referred By: Cuauhtemoc Augustine Electronically Signed By: Lenny Garcia
--- OUTSIDE RECORDS SUMMARY | 2024-11-07 08:07 | XMS_ITS | Patient Health Record ---
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 Name Role Phone Haider Styles MD Primary Care Provider Etienne Geronimo [phone] Allergies Allergen (clinical drug ingredient) Drug/Non Drug [...] Status Risk Notes Problem Acquired hallux valgus ([id number]) Hallux valgus (acquired), left foot (M20.12) Active confirmed Problem Acquired hallux valgus ([id number]) Hallux valgus (acquired), right foot (M20.11) Active confirmed Plan Of Treatment Pending Test Test Name Order Date X ray : Foot, right 2V 11/16/2016 Insurance Providers Payer Name Payer Address Payer Phone Subscriber Number Group Number Insured Name Patient Relationship to Insured Coverage Start Date Coverage End Date [facility] [address] [place] [address] [phone] [id number] Kary Stevens Self - patient is the insured Medical (General) History Medical History History ICD Code asthma Back,Hip,and Knee pain Headaches Chicken pox STDs Surgical History Surgery Date(Month/Year) DERMOSIS LEFT OVARY 2006
== END ==
LOC: HO.CARD 08:03
PROVIDERS: PCP Internal Medicine; Visit Provider Internal Medicine
DX: R55 Syncope and collapse (principal)
CPT/HCPCS: 93017

== ENCOUNTER → 2024-11-07 08:05 | Outpatient (BNV) | payer OTHER, SELFPAY | PROVIDERS: PCP Internal Medicine | DX: R07.9 Chest pain, unspecified (principal); I49.1 Atrial premature depolarization; I49.3 Ventricular premature depolarization | CPT/HCPCS: 93016; 93018 ==

== ENCOUNTER → 2024-11-18 12:43 | Outpatient (REF) | payer OTHER, SELFPAY ==
--- NOTE | 2024-11-18 12:45 | CA_ITS ---
Acquisition Time: 2024-11-18 12:58:45 Total Exercise Time: 00:09:36 Test Indications: CP,Syncope DIZZINESS Medications: SEE ED DISCHARGE SUMMARY Protocol: FERNANDO Max HR: 153 BPM 89% of Pred: 171 BPM Max BP: 140/82 mmHG Max Work Load: 11.0 METS Exercise stress test with exercise 9 mins 36 secs of Fernando Protocol, achieving 90% MPHR, with reports of SOB and lung tightness , no chest pain, with isolated PACs and PVCs, one atrial couplet and one triplet, with normotensive response to exercise. Without any EKG changes meeting criteria for ischemia. In recovery, breathing returned to baseline, lung tightness reoslved. Echo images obtained by tech at rest and post peak exercise. Definity contrast utilized. Test reviewed with Dr. Augustine. Referred By: Lenny Garcia Electronically Signed By: Lenny Garcia
--- OUTSIDE RECORDS SUMMARY | 2024-11-18 13:36 | XMS_ITS | Patient Health Record ---
Author Organization [facility] Address [address] [place] [address] Care Team Providers Care Selling Manager Name Role Phone Haider Styles MD Primary Care Provider Etienne Geronimo [phone] Allergies Allergen (clinical drug ingredient) Drug/Non Drug [...] Status Risk Notes Problem Acquired hallux valgus ([id number]) Hallux valgus (acquired), left foot (M20.12) Active confirmed Problem Acquired hallux valgus ([id number]) Hallux valgus (acquired), right foot (M20.11) Active confirmed Plan Of Treatment Pending Test Test Name Order Date X ray : Foot, right 2V 11/16/2016 Insurance Providers Payer Name Payer Address Payer Phone Subscriber Number Group Number Insured Name Patient Relationship to Insured Coverage Start Date Coverage End Date [facility] [address] [facility] [place] [address] [phone] [id number] Kary Stevens Self - patient is the insured Medical (General) History Medical History History ICD Code asthma Back,Hip,and Knee pain Headaches Chicken pox STDs Surgical History Surgery Date(Month/Year) DERMOSIS LEFT OVARY 2006
== END ==
LOC: HO.CARD 12:43
PROVIDERS: PCP Internal Medicine
DX: R94.39 Abnormal result of other cardiovascular function study (principal); R07.9 Chest pain, unspecified
CPT/HCPCS: 93350; Q9957

== ENCOUNTER → 2024-11-18 12:45 | Outpatient (BNV) | payer OTHER, SELFPAY | PROVIDERS: PCP Internal Medicine | DX: R06.02 Shortness of breath (principal); I49.1 Atrial premature depolarization; I49.3 Ventricular premature depolarization | CPT/HCPCS: 93016; 93018; 93350; 93352 ==

== ENCOUNTER 2024-11-25 09:17 | Outpatient (AMB) | payer OTHER, SELFPAY ==
[2024-11-25 09:31] VITALS: BP 109/59; PULSE 91; BMI 28.9
--- NOTE | 2024-11-25 09:31 | MHC.OFFVIS ---
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 Goods Stock Clerk Required: No Allergies hydrocodone (From Vicodin) Allergy (Intermediate, Verified 11/25/24 09:33) Vomiting latex (Latex) Allergy (Mild, Verified 11/25/24 09:33) RASH carisoprodol Adverse Reaction (Mild, Verified 11/25/24 09:33) NAUSEA & VOMITING, HEADACHES nabumetone Adverse Reaction (Mild, Verified 11/25/24 09:33) Dizziness Medication List - Last Reconciled 11/25/24 by [facility] albuterol sulfate 90 mcg/actuation (Ventolin HFA) 1 inh inhalation QID PRN 30 days uozrvpz-gsxszmfnw-zwyg 333-133-5 mg 3 tabs PO BEDTIME cetirizine (All Day Allergy (cetirizine)) 10 mg PO DAILY PRN cholecalciferol (vitamin D3) 10 mcg PO DAILY collagen,hydrolyz-ascorbate Ca 1 gram- 10 mg 3 tabs PO DAILY nabumetone 750 mg PO BID PRN 30 days omega 9-ykp-ytu-fish oil 1,000 (120-180) mg (Fish Oil) 1 cap PO DAILY HPI HPI [facility] fu stress test/ preop spine surgery: Details: Kary is a 49-year-old female with no cardiac history who was recently admitted to [facility] following syncopal event. She had 1 episode of presyncope when walking on a track. The following day she again was walking on the track and had chest pressure, shortness of breath, diaphoresis with syncopal event prompting ER visit. ER evaluation showed only orthostatic tachycardia. She was treated with IV fluids. An echocardiogram showed EF 64%, no valve or regional wall motion abnormalities. She was evaluated by Dr. Augustine and outpatient stress test was ordered. Today she reports that she was working out side in the hot weather doing gardening and she had excessive sweating, nausea and vomited. She felt lightheaded but has not had any recurrent syncopal events since her hospital discharge. She has not had any recurrent chest pressure or shortness of breath except during the stress test. She has not been walking on the track in the hot weather. She has been experiencing low back and neck discomfort. She is planning to have disc decompression surgery this week. No heart palpitations. [facility] Medical History HPV (human papilloma virus) infection DDD (degenerative disc disease), lumbar Fatty liver Depression Asthma Syncope and collapse Lumbar stenosis ASCUS with positive high risk HPV cervical Migraine Surgical History Hx of unilateral oophorectomy Hx of section History of hernia surgery Family History Father HTN (hypertension) Diabetes Mother Diabetes HTN (hypertension) Other Mental health disorder Substance use disorder Social History Household Members: Family Household Members Other:: Daughter Housing: House Are you a primary veterinarian laboratory animal care to a significant other at home: No Do you presently have visiting nurse or other home services: No Alcohol intake: current Alcohol intake frequency: holidays/special occasions only Alcohol type: hard liquor Patient Tobacco Use Status: Never used Tobacco e-Cigarette/Vaping Use: Never Used Second Hand Smoke Exposure: No service: No Current occupational status: unemployed Sexual orientation: Straight/Heterosexual Gender identity: Female Cognitive needs: No Hearing needs: No Vision needs: No Female Reproductive History Menstrual Age of Menarche: 14 Review of Systems Const All systems reviewed & are unremarkable except as noted in HPI and below ENT Reports dizziness Card Denies chest pain, Denies chest pain at rest, Denies chest pain with activity, Denies rapid heart rate, Denies pedal edema, Denies edema, Denies leg edema, Denies lightheadedness, Denies palpitations, Denies dyspnea, Denies dyspnea on exertion and Denies orthopnea Resp Denies cough, Denies dyspnea and Denies dyspnea on exertion GI Denies hematochezia and Denies change in stool character Musc Denies abnormal gait, Denies limited range of motion, Denies muscle cramps, Denies muscle weakness, Denies numbness, Denies radiating pain into limb, Denies stiffness and Denies tingling Neuro Denies abnormal gait, Reports dizziness, Denies numbness and Denies tingling Endo Denies palpitations Physical Exam Vital Signs: Last Vital Signs Pulse 80 11/25/24 09:41 BP 121/65 11/25/24 09:41 BMI result Body Mass Index 28.9 Const General: cooperative, healthy appearing, comfortable and no acute distress Orientation/consciousness: patient oriented x3 Neck Neck: Yes normal visual inspection Resp Effort & Inspection: normal respiratory effort Auscultation: clear to auscultation bilaterally, no rales, no rhonchi and no wheezes Cardio Rate: regular rate Rhythm: regular rhythm Heart sounds: S1 normal heart sound present and S2 normal heart sound present GI Inspection: Yes normal to inspection Skin General skin exam: no rashes or lesions noted Neuro General: patient oriented x3 Extrem General: Yes normal to inspection Psych Appearance: grossly normal Mental Status: mental status grossly normal Speech and movement: Normal speech and movement present Office Procedures EKG Details: Today, read by me sinus rhythm rate 78, Qtc 417ms [id number], Complete Assessment & Plan Assessment & Plan (1) Syncope and collapse: Code(s): R55 - Syncope and collapse Category: Medical Plan: Recent syncopal event with ER evaluation showing orthostatic tachycardia. Treated with IV fluids. Echocardiogram showed no significant abnormalities. Outpatient exercise stress test 11/07/2024 with exercise 9 minute with chest tightness, no EKG changes of ischemia. Exercise stress echo 11/18/2024 with exercise 9 minute with shortness of breath and reported lung tightness, no chest discomfort, no EKG or echo evidence of ischemia. Test results reviewed with her. Orthostatic vitals today again show mild tachycardia with standing position. Her syncope is most likely related to orthostatic changes in setting of hypovolemia. Reviewed with her and discussed need for ongoing good hydration, electrolyte replacement during physical activity and avoid exercise/ physical activity in very hot weather, recognize symptoms and stop activity as warranted. Will further evaluate with tilt-table test. Cardiology follow-up 3 months, sooner if needed. (2) Chest pain: Code(s): R07.9 - Chest pain, unspecified Category: Medical Plan: Chest discomfort reported at time of recent syncope. ETT and stress echocardiogram recently done showing no EKG changes of ischemia and echo images showed no ischemia. EKG done today showing normal sinus rhythm, rate 78. Signs and symptoms of angina reviewed with her. (3) Hospital discharge follow-up: Code(s): Z09 - Encounter for follow-up examination after completed treatment for conditions other than malignant neoplasm Category: Medical Plan: ED notes reviewed (4) Preop cardiovascular exam: Code(s): Z01.810 - Encounter for preprocedural cardiovascular examination Category: Medical Plan: Preop for lumbar disc decompression 11/27/[address] Small. She may proceed with low cardiac risk. Call/consult Cardiology if needed. Plan I discussed with the patient the potential causes of her presyncope, including orthostatic, vasovagal syncope and POTS, and recommended a tilt table test for further evaluation. We talked about the importance of hydration and electrolyte replacement, especially during physical activities in hot weather. I cleared her for spinal surgery, explaining that her cardiac evaluations were normal and her heart could withstand the procedure. We agreed to schedule follow-up appointments post-surgery to reassess her condition and adjust her management plan as needed. Orders: Orders ECG Tilt Table Test Today R55 - Syncope and collapse Patient Instructions: - Stay hydrated and use electrolyte drinks during physical activities, especially in hot weather. - Avoid extreme physical exertion in hot weather. - Use compression stockings if advised after further testing. - Monitor for symptoms post-surgery and adjust activities accordingly. - Follow up with the clinic after surgery for reassessment. Patient was informed and verbally consented to the use of an ambient scribe for clinic note documentation during this visit. Visit time spent on chart review, interview, assessment, orders, documentation. Coding Level of Care Code Est Pt Level 4 (63376) Complex EM visit Add On G2211 Diagnoses Syncope and collapse R55 Chest pain R07.9 Hospital discharge follow-up Z09 Preop cardiovascular exam Z01.810 CPT Codes EKG - CPT: 88172-Pfrzabzghwiwbzwyz, Complete ([id number]) Time Spent (min) 28
[2024-11-25 09:39] VITALS: BP 129/69; PULSE 113
[2024-11-25 09:41] VITALS: BP 121/65; PULSE 80
--- OUTSIDE RECORDS SUMMARY | 2024-11-25 09:41 | XMS_ITS | Patient Health Record ---
Author Organization [facility] Address [address] [place] [address] Care Team Providers Care Media Production Support Manager Name Role Phone Haider Styles MD Primary Care Provider Etienne Geronimo [phone] Allergies Allergen (clinical drug ingredient) Drug/Non Drug [...] Status Risk Notes Problem Acquired hallux valgus ([id number]) Hallux valgus (acquired), left foot (M20.12) Active confirmed Problem Acquired hallux valgus (00973197) Hallux valgus (acquired), right foot (M20.11) Active confirmed Plan Of Treatment Pending Test Test Name Order Date X ray : Foot, right 2V 11/16/2016 Insurance Providers Payer Name Payer Address Payer Phone Subscriber Number Group Number Insured Name Patient Relationship to Insured Coverage Start Date Coverage End Date [facility] [address] [place] [address] [phone] [id number] Kary Stevens Self - patient is the insured Medical (General) History Medical History History ICD Code asthma Back,Hip,and Knee pain Headaches Chicken pox STDs Surgical History Surgery Date(Month/Year) DERMOSIS LEFT OVARY 2006
== END 2024-11-25 10:11 | disposition home or self-care (01) ==
LOC: HO.HCS 09:17
PROVIDERS: PCP Internal Medicine; Visit Provider Nurse Practitioner Family
DX: R55 Syncope and collapse (principal); R07.9 Chest pain, unspecified; Z09 Encounter for follow-up examination after completed treatment for conditions other than malignant neoplasm; Z01.810 Encounter for preprocedural cardiovascular examination
CPT/HCPCS: 93010; 99214; G2211

== ENCOUNTER → 2024-11-25 09:17 | Outpatient (BNVA) | payer OTHER, SELFPAY | PROVIDERS: PCP Internal Medicine; Visit Provider Nurse Practitioner Family | DX: Z01.810 Encounter for preprocedural cardiovascular examination (principal); R55 Syncope and collapse; R07.9 Chest pain, unspecified | CPT/HCPCS: 93005; 99212 ==

== ENCOUNTER 2024-11-27 05:48 | Day surgery (SDC) | payer OTHER, SELFPAY ==
--- OUTSIDE RECORDS SUMMARY | 2024-10-25 15:01 | XMS_ITS | Patient Health Record ---
Author Organization [facility] Address [address] [place] [address] Care Team Providers Care Silk Blocker Name Role Phone Haider Styles MD Primary Care Provider Etienne Geronimo [phone] Allergies Allergen (clinical drug ingredient) Drug/Non Drug [...] Status Risk Notes Problem Acquired hallux valgus (57726641) Hallux valgus (acquired), left foot (M20.12) Active confirmed Problem Acquired hallux valgus (46884435) Hallux valgus (acquired), right foot (M20.11) Active confirmed Plan Of Treatment Pending Test Test Name Order Date X ray : Foot, right 2V 11/16/2016 Insurance Providers Payer Name Payer Address Payer Phone Subscriber Number Group Number Insured Name Patient Relationship to Insured Coverage Start Date Coverage End Date [facility] [address] [place] [address] [phone] [id number] Kary Stevens Self - patient is the insured Medical (General) History Medical History History ICD Code asthma Back,Hip,and Knee pain Headaches Chicken pox STDs Surgical History Surgery Date(Month/Year) DERMOSIS LEFT OVARY 2006
[2024-11-13 13:13] VITALS: BP 128/67; PULSE 81; RESP 18; O2SAT 97; BMI 29.3
--- NOTE | 2024-11-13 13:39 | HO.ANESPROP2 ---
Documented by User: Flower Ta NP 11/13/24 14:13 HPI - Anesthesia Eval Consult details Narrative: 49yo F for Right Right L3-4, Right L4-5, Right L5 Foraminotomy, 11/27/24 No recent illness. No CP/SOB with walking on treadmill, but experiencing some lightheadedness and dizziness - see cardiac Cardiac clearance pending. Pt with episodes of near syncope while active (treadmill/walking track). Cardiac w/u with EKG, Echo, Exercise Stress - all ok Head CT 10/2024 nml Discussed risk of exacerbation of symptoms post op PMFSH Active Problems Active Problems: All Active Problems Chest pain (Acute) Lumbar stenosis (Acute) Syncope and collapse (Acute) Mild major depression (Acute) Physical exam (Acute) Lumbar spondylosis (Acute) Cervical spondylosis (Acute) Cervical disc disease with myelopathy (Acute) Degenerative disc disease, cervical (Acute) Muscle spasms of neck (Acute) Cervical spondylosis with radiculopathy (Acute) Right hip pain (Acute) Neck pain (Acute) Bilateral sciatica (Acute) Urge urinary incontinence (Acute) Colon cancer screening (Acute) Vulvovaginal itching (Acute) Menopause (Acute) Postmenopausal bleeding (Acute) Well woman exam with routine gynecological exam (Acute) Cervical cancer screening (Acute) Amenorrhea, secondary (Acute) Migraine (Acute) Past Medical History Medical History Neck pain HPV (human papilloma virus) infection DDD (degenerative disc disease), lumbar Fatty liver Depression Asthma Syncope and collapse Lumbar stenosis ASCUS with positive high risk HPV cervical Migraine Family History Family History Father HTN (hypertension) Diabetes Mother Diabetes HTN (hypertension) Other Mental health disorder Substance use disorder Family history of problems with anesthesia: Yes (Aunt with awareness under anesthesia) Surgical History Surgical History Hx of unilateral oophorectomy Hx of section History of hernia surgery History of Problems with Anesthesia: No (1 x vomiting post op) Social History Social History Household Members: Family Household Members Other:: Daughter Housing: House Are you a primary post acute care nurse to a significant other at home: No Do you presently have visiting nurse or other home services: No Alcohol intake: current Alcohol intake frequency: holidays/special occasions only Alcohol type: hard liquor Patient Tobacco Use Status: Never used Tobacco e-Cigarette/Vaping Use: Never Used Second Hand Smoke Exposure: No Use of substances other than those prescribed or required for medical reasons: No Have you been hit, kicked, punched, or otherwise hurt by someone within the past year? If so, by whom?: No Spiritual Healthcare Practices: nu Denominational Healthcare Practices: no Cultural Healthcare Practices: no Are you DNR?: No Advance Directives: No (states mother is primary contact) Advance Directives on File: No Patient : No FDLMP: n/a-early menopause : No Poor oral hygiene: No (lower partial-rarely wears) service: No Current occupational status: unemployed Sexual orientation: Straight/Heterosexual Gender identity: Female Cognitive needs: No Hearing needs: No Vision needs: No Meds Allergies Allergy/AdvReac Type Severity Reaction Status Date / Time hydrocodone (From Vicodin) Allergy Intermediate Vomiting Verified 11/27/24 07:20 latex (Latex) Allergy Mild RASH Verified 11/27/24 07:20 carisoprodol AdvReac Mild NAUSEA & Verified 11/27/24 07:20 VOMITING, HEADACHES nabumetone AdvReac Mild Dizziness Verified 11/27/24 07:20 Home Medications ?Medication ?Instructions ?Recorded ?Confirmed ?Last Taken ?Type cholecalciferol (vitamin D3) 10 10 mcg PO DAILY 07/16/20 11/25/24 Unknown History mcg (400 unit) capsule omega 9-kjn-oqo-fish oil 1,000 mg 1 cap PO DAILY 08/25/22 11/25/24 Unknown History (120 mg-180 mg) capsule (Fish Oil) collagen, hydrolyzed 1 3 tab PO DAILY 11/08/23 11/25/24 Unknown History gram-ascorbate calcium 10 mg tablet gbwmkog-nsgpyotwa-nirj 333 mg-133 3 tab PO BEDTIME 11/13/24 11/25/24 Unknown History mg-5 mg tablet cetirizine 10 mg capsule (All Day 10 mg PO DAILY PRN 11/25/24 11/25/24 Unknown History Allergy (cetirizine)) Exam Height,Weight and Vital Signs: Height 5 ft 5 in Weight 79.832 kg Last Vital Signs Pulse 81 07/09/25 13:13 Resp 18 11/13/24 13:13 BP 128/67 11/13/24 13:13 Pulse Ox 97 11/13/24 13:13 O2 Del Method Room Air 11/13/24 13:13 Pertinent Lab Results Pertinent Lab Results: Laboratory Tests 10/08/24 09:35 WBC 4.9 Hgb 14.3 Hct 42.7 Plt Count 204 Sodium 139 Potassium 4.7 Chloride 106 Carbon Dioxide 27 BUN 18 H Creatinine 0.65 Narrative Narrative: EKG 10/2024 Vent. Rate : 91 BPM Atrial Rate : 91 BPM P-R Int : 150 ms QRS Dur : 90 ms QT Int : 366 ms P-R-T Axes : 61 21 55 degrees QTcB Int : 450 ms Normal sinus rhythm Normal ECG When compared with ECG of 08-Oct-2024 09:21, No significant change was found ECHO 10/2024 Conclusions: - The left ventricular systolic function is normal. The calculated ejection fraction is 64% by biplane method. - No obvious valvular pathology seen on this study. Exercise Stress 10/2024 Protocol: FERNANDO Max HR: 144 BPM 84% of Pred: 171 BPM Max BP: 140/80 mmHG Max Work Load: 10.1 METS Exercise stress test with exercise 9 mins of Fernando Protocol, achieving 84% MPHR, with reports of dizziness, tightness around the head and neck, and 3/10 chest tightness, with isolated PACs and PVCs, with normotenisve reposnse to exercise. Without EKG changes meeting criteria for ischemia. In recovery, pt's chest tightness resolved quickly and other symptoms gradually improving. Will recommend stress echo for further evaluation. Test reviewed with Dr. Raza. CT angio head neck 10/2024 IMPRESSION: Unremarkable CTA neck and brain exam. Airway Mallampati Class: II TM Dist: >3cm Neck ROM: Full (painful) Partial: Lower Heart: RRR Lungs: CTAB Assessment and Plan Assessment Anesthesia Assessment: Anesthesia Plan Discussed and PAT Visit Final Anesthetic Review Family History of Problems with Anesthesia: Yes (Aunt with awareness under anesthesia) History of Problems with Anesthesia: No (1 x vomiting post op) Documented by User: Char Underwood MD 11/27/24 07:38 PMFSH Past Medical History Medical History Neck pain HPV (human papilloma virus) infection DDD (degenerative disc disease), lumbar Fatty liver Depression Asthma Syncope and collapse Lumbar stenosis ASCUS with positive high risk HPV cervical Migraine Family History Family History Father HTN (hypertension) Diabetes Mother Diabetes HTN (hypertension) Other Mental health disorder Substance use disorder Surgical History Surgical History Hx of unilateral oophorectomy Hx of section History of hernia surgery Social History Social History Household Members: Family Household Members Other:: Daughter Housing: House Are you a primary post acute care nurse to a significant other at home: No Do you presently have visiting nurse or other home services: No Alcohol intake: current Alcohol intake frequency: holidays/special occasions only Alcohol type: hard liquor Patient Tobacco Use Status: Never used Tobacco e-Cigarette/Vaping Use: Never Used Second Hand Smoke Exposure: No Use of substances other than those prescribed or required for medical reasons: No Have you been hit, kicked, punched, or otherwise hurt by someone within the past year? If so, by whom?: No Spiritual Healthcare Practices: nu Denominational Healthcare Practices: no Cultural Healthcare Practices: no Are you DNR?: No Advance Directives: No (states mother is primary contact) Advance Directives on File: No Patient : No FDLMP: n/a-early menopause : No Poor oral hygiene: No (lower partial-rarely wears) service: No Current occupational status: unemployed Sexual orientation: Straight/Heterosexual Gender identity: Female Cognitive needs: No Hearing needs: No Vision needs: No Meds Allergies Allergy/AdvReac Type Severity Reaction Status Date / Time hydrocodone (From Vicodin) Allergy Intermediate Vomiting Verified 11/27/24 07:20 latex (Latex) Allergy Mild RASH Verified 11/27/24 07:20 carisoprodol AdvReac Mild NAUSEA & Verified 11/27/24 07:20 VOMITING, HEADACHES nabumetone AdvReac Mild Dizziness Verified 11/27/24 07:20 Home Medications ?Medication ?Instructions ?Recorded ?Confirmed ?Last Taken ?Type cholecalciferol (vitamin D3) 10 10 mcg PO DAILY 07/16/20 11/25/24 Unknown History mcg (400 unit) capsule omega 2-scc-ulb-fish oil 1,000 mg 1 cap PO DAILY 08/25/22 11/25/24 Unknown History (120 mg-180 mg) capsule (Fish Oil) collagen, hydrolyzed 1 3 tab PO DAILY 11/08/23 11/25/24 Unknown History gram-ascorbate calcium 10 mg tablet aqywkqk-fkgapdenx-dzkd 333 mg-133 3 tab PO BEDTIME 11/13/24 11/25/24 Unknown History mg-5 mg tablet cetirizine 10 mg capsule (All Day 10 mg PO DAILY PRN 11/25/24 11/25/24 Unknown History Allergy (cetirizine)) Exam Airway Loose/Missing/Broken Teeth: No Assessment and Plan Assessment Anesthesia Assessment: Chart Reviewed Final Anesthetic Review NPO: Yes ASA Class: II Final Preanesthetic Review: Meds/Allgs Chart Reviewed, Consent Obtained/Reviewed and Anes Risks/Benef Reviewed Patient Risk: Low Procedure Risk: Intermediate Anesthetic Plan Anesthetic Plan: GA Disposition: Standard PACU
--- NOTE | 2024-11-26 13:29 | MHC.SHP ---
Pre-Procedural Eval Section A - 24 Hr Update-Section A only Date of Service: 11/27/24 Section B - Complete if H&P > 30 days Chief Complaint: Intervertebral disc disorders with radiculopathy Allergies: Allergies Allergy/AdvReac Type Severity Reaction Status Date / Time hydrocodone (From Vicodin) Allergy Intermediate Vomiting Verified 11/25/24 09:33 latex (Latex) Allergy Mild RASH Verified 11/25/24 09:33 carisoprodol AdvReac Mild NAUSEA & Verified 11/25/24 09:33 VOMITING, HEADACHES nabumetone AdvReac Mild Dizziness Verified 11/25/24 09:33 Review of Systems Sugical H&P ROS: Negative: Constitution, Cardiovascular, Respiratory, Neurological, Psychiatric, Hem-Onc, Allergic/Immunologic, Gastrointestinal, Genitourinary, Musculoskeletal, Integumentary, Endocrine and Eyes/Ears/Nose/Throat Exam Surgical H&P Exam: Not Evaluated: HEENT, Not Evaluated: Heart, Not Evaluated: Lungs, Not Evaluated: Extremities, Not Evaluated: Abdomen, Not Evaluated: Skin and Not Evaluated: Neurological Exam Comment: The patient is awake, alert, in no acute distress. Proposed surgical incision site is clean, dry, no signs of recent trauma. Plan Diagnosis/Plan: Unchanged I have reviewed the history and physical and performed a pertinent physical examination on my patient. No changes have occurred unless specified. Plan remains the same, right L3-4, right L4-5 decompression with right L5 foraminotomy Time Spent With Patient Time: Total time managing care of this patient today __6__ minutes.
[2024-11-27] VITALS (17 sets, daily range): BP systolic 101–133; BP diastolic 55–83; PULSE 53–77; RESP 8–18; TEMP 36–36.8; O2SAT 96–99; BMI 28.8
--- NOTE | ~2024-11-27 | FL_ITS ---
EXAMINATION: FL GUIDANCE ONLY HISTORY: right L3-5 decompression COMPARISON: Correlation is made with an MRI of the lumbar spine dated 10/09/2024. TECHNIQUE: Fluoroscopy time: 7.9 seconds. Cumulative Dose: 6.6953 mGy. DAP: 2.9124 mGym2 Images: 1. FINDINGS: A single fluoroscopic spot film of the lumbar spine in the lateral projection demonstrates a probe directed toward the L3 vertebra from a posterior approach. FL/FL guidance in OR IMPRESSION: Fluoroscopy during procedure. Please see procedure report for additional information. Electronically signed by: Dedrick Carrillo MD 11/27/2024 10:38 AM EDT
[2024-11-27 06:18] LABS: UPreg QC Valid YES
[2024-11-27] MEDS: Lactated Ringers 1,000 ML 100 ML IVCONT (06:43)
--- NOTE | 2024-11-27 09:57 | W.PM.OPN ---
Operative Note Operative Note Date of Service: 11/27/24 Narrative: Preoperative Diagnosis: L3-4 and L4-5 spinal stenosis/lateral recess stenosis/neural foraminal stenosis Operation: L3-4 Laminotomy, Partial facetectomy and foraminotomy with use of microscope Consent Informed Consent was obtained for this operation. I have explained the nature, purpose and benefits of the operation. I have discussed the risks and benefit of the operation including possible complications or adverse events with patient/family. Alternative(s) were discussed with the patient with their relative benefits and risks as well as the consequences of not accepting the operation were included in obtaining consent. Surgeon: WOJCIECH MCLEAN MD, PHD Procedure Assisted By: Lee Brady PA-C Description of Procedure This 49-year-old female is suffering from right-sided leg pain radiating to the small toe. MRI shows severe L3-4 spinal stenosis and moderate L4-5 spinal stenosis and [id number]-[id number] right L5 foraminal stenosis. The plan was to do a right-sided decompression of the L3-4 and L4-5 level but in the holding area the patient mentioned that the pain also starts into the left side therefore the plan was changed to a bilateral L3-4 and L4-5 decompression through a right-sided approach. The patient discontinued fish oil 1 week prior to surgery. The procedure complications were explained. The patient was consented. The patient was brought to the operating room and endotracheally intubated. The patient was turned in prone position on the Son frame. Prep and drape was done followed by timeout. The physician assistant hvac mechanic provided access. A mid lumbar incision was made followed by release of the paravertebral muscle on the right side to expose the L3-L5 lamina and facet joints. An intraoperative x-ray was obtained to confirm the correct level. The microscope was brought in. I took over the procedure. Became clear that this patient was significantly oozing. I spent the 1st 45 minutes trying to get hemostasis. Then finally I was able to perform a right L3-4 decompression, including and partial facetectomy. However the continuous bleeding in combination with congenital spinal stenosis maybe return the procedure into a bilateral decompression. I resected the interspinous ligament and part of the spinous processes of L3 and L4 then I removed the flavum ligament in the midline until epidural fat was seen. I expose the dura and this way I was able to expand the laminotomy bilaterally to decompress the thecal sac and exiting nerve roots. In the meantime we had lost approximately 500 cc and the patient continued to bleed which was not well responding to the bipolar coagulation. I used Surgiflo to reduce the bleeding. I put a small piece of DuraGen over the right L4 nerve root and used tissue seal for further hemostasis. My suspicion is that the fish oil is causing the coagulation disorder. I decided to not perform the L4-5 decompression due to the hemostasis problems. The visualization is poor and increases the risk of neurological injury. The good news is that the L3-4 level was the most significant compressive level. The microscope was removed. More extensive hemostasis was done. The physician assistant hvac mechanic close the incision in 2 layers. Steri-Strips were used to approximate incision. An OpSite with Tegaderm was used to cover the incision. All sponge needle counts were correct. Patient was extubated and transported in stable is to recovery room. We will observe the patient to see if she is stable enough to go home today. Anesthesia: General Estimated Blood Loss (ml): 550 cc Complications: None Duration of Surgery: 2 hours Postoperative Plan: Observation with possible discharged home
--- NOTE | 2024-11-27 13:23 | PHA.MEDREC ---
Addendum entered by Robert Wolf, ShivD 11/27/24 15:23: amended, pt stopped taking Nabumetone due to side effects, last filled in May. Original Note: Pharmacy Consult ? Medication Reconciliation Pharmacy has completed the medication reconciliation. Verified med rec done by nursing, matches claims and last office visit.
[2024-11-28 03:41] VITALS: BP 100/54; PULSE 66; RESP 17; TEMP 36.4; O2SAT 97
[2024-11-28 07:35] VITALS: BP 101/60; PULSE 78; RESP 18; TEMP 36.7; O2SAT 98
--- NOTE | 2024-11-28 07:36 | PM.DS ---
DS: Providers Provider Date of Service: 11/28/24 Date of discharge: 11/28/24 Primary care physician: Erendira Prescott MD DS: Summary Time Attestation Discharge Coordination Time (in mins): 12 Quality: Safe Use of Opioids Does Pt have an Active Cancer Diagnosis on the Problem List?: No Quality: Stroke Does the patient have a stroke diagnosis?: No Physical Exam Vital Signs: Vital Signs: Last Vital Signs Temp 97.6 F 11/28/24 03:41 Pulse 66 11/28/24 03:41 Resp 17 11/28/24 03:41 BP 100/54 L 11/28/24 03:41 Pulse Ox 97 11/28/24 03:41 O2 Del Method Room Air 11/28/24 03:41 O2 Flow Rate 1 11/27/24 14:26 BMI result Body Mass Index 28.8 Discharge Plan Discharge Patient Disposition: Home, Self-Care Referrals: Erendira Pratt MD [Primary Care Provider, Internal Medicine] - 1 Week Discharge Medications: Continued albuterol sulfate [Ventolin HFA] 90 mcg/actuation HFA aerosol inhaler 1 inh inhalation QID PRN (Reason: shortness of breath or wheezing) 30 Days Qty: 6.7 1RF fpxebpp-qoqihdogt-mfhq 333-133-5 mg Tablet 3 tab PO BEDTIME cholecalciferol (vitamin D3) 10 mcg (400 unit) capsule 10 mcg PO DAILY collagen,hydrolyz-ascorbate Ca 1 gram- 10 mg tablet 3 tab PO DAILY All Day Allergy (cetirizine) 10 mg capsule 10 mg PO DAILY PRN (Reason: allergies) Held omega 0-sms-ire-fish oil [Fish Oil] 1,000 mg (120 mg-180 mg) capsule 1 cap PO DAILY Hold Instructions: Resume on 12/29/24. Discharge Orders: Discharge Order (Routine); Ordered 11/28/24 Ordered By: Lee Brady Diet: Advance to usual diet Activity on Discharge: As tolerated Activity Restrictions/Additional Instructions: After your spinal surgery we ask you to observe the following restrictions/guidelines: Activity: It is normal to feel some discomfort as you increase your activity, but that will improve with time. We ask you avoid heavy lifting or acitivities that cause pain. As a general rule, 8lbs is a safe limit for lifting right after surgery. Walk as much as you feel comfortable but not to exhaustion. You will feel extra tired the first few days after surgery. Stay well hydrated. It is OK to walk up and down stairs You may return to driving when you are off narcotics (such as vicodin, oxycodone, dilaudid, etc), and you are back to normal functional capacity. If you have any concerns please check with office before driving. Return to work is specific to each patient and each surgery, so please speak with your doctor/PA at first follow up. Please bring paperwork such as FMLA at that time if you need it filled out. Medications: For optimum pain control, it is best to start with a combination of 500 mg of Tylenol every 4 hours with 600 mg of Motrin every 8 hours. As we discussed, if this is not enough to control your pain please reach out to our clinic and we can send in stronger pain medication for you. If you take blood thinner such as aspirin, Plavix, Coumadin, Effient, Eliquis etc for conditions such as Afib, DVT, Pulmonary embolus, coronary disease, stents etc please speak with your surgeon about specific details as to when you can resume these medications. You can resume NSAIDs on post op day 1 (eg: Motrin, Naproxen, etc). Follow up: Please call the office, , after surgery to arrange a 3 week follow up for wound check. Wound Care: You may remove your dressing on the first day after surgery. ?You may ?leave open to air. Please do not remove the steri strips underneath. they will fall off on their own in one week. IT IS NORMAL FOR THE WOUND TO OOZE OR BE BLOODY FOR A FEW DAYS AFTER SURGERY. ?IF THIS HAPPENS JUST PLACE NEW DRESSING OVER IT TO AVOID STAINING CLOTHES. You may shower on post op day # 1 We ask that you do not let the water soak the wound. If it does get wet, just towel dry lightly. Please do not scrub your incision or place any type of chemical/ointment on the wound. No tub baths, pools or jacuzzis for one month. If you have any leaking or redness from your wound, or fevers, please call office Hospital Course: Pleasant 49 y/o F underwent L3-[address] Small yesterday. She was kept in extended stay / observation to monitor her progress after surgery as she lost about 500cc of blood during her procedure. This was likely secondary to her fish oil, or an underlying coagulation disorder which has not been diagnosed. She is progressing as expected, and has been OOB to bathroom several times. She is voiding well and tolerating her current diet. Afebrile, vital signs stable Full strength of bilateral lower extremities. No new neurological deficits. Posterior dressings are C/D/I. No obvious signs of staining / hematoma. The patient was seen alongside Dr. Small this morning who will be discharging the patient home. Print Language: Ecuadorean
--- NOTE | 2024-11-28 07:41 | HO.NEURO.PN ---
Neurosurgery Operative Note Date of Service: 11/28/24 Narrative: Aniya 49 y/o F underwent L3-[address] Small yesterday. She was kept in extended stay / observation to monitor her progress after surgery as she lost about 500cc of blood during her procedure. This was likely secondary to her fish oil, or an underlying coagulation disorder which has not been diagnosed. She is progressing as expected, and has been OOB to bathroom several times. She is voiding well and tolerating her current diet. Afebrile, vital signs stable Full strength of bilateral lower extremities. No new neurological deficits. Posterior dressings are C/D/I. No obvious signs of staining / hematoma. The patient was seen alongside Dr. Small this morning who will be discharging the patient home.
--- NOTE | 2024-11-28 08:41 | HO.POSTANES ---
Post Anesthesia Evaluation Post Anesthesia Evaluation Date of Service: 11/28/24 Vital Signs: Vital Signs Temp Pulse Resp BP Pulse Ox O2 Del Method 11/28/24 07:35 98.1 F 78 18 101/60 98 Room Air 11/28/24 03:41 97.6 F 66 17 100/54 L 97 Room Air 11/27/24 23:11 97.1 F 69 18 108/59 L 96 Room Air Anesthesia: General Mental Status: Awake Pain Control: Satisfactory Nausea/Vomiting: None Hydration: Adequate Anesthesia-Related Issues: No Anes. Related Issues
--- NOTE | 2024-11-28 09:22 | MHC.CM.PN ---
Patient lives in a home w/ family. Functionally independent. Denies use of DME or services. PCP Erendira Prescott MD No HCP. CM provided education and offered assistance. Patient declined, but accepted a blank copy. DP: Medically cleared for dc home self care. Private transport. RN aware.
== END 2024-11-28 09:28 | disposition home or self-care (01) ==
LOC: HO.SSS 05:48 → HO.S3 13:59 → HO.SSS 14:13 → HO.S3 14:24
PROVIDERS: Nurse Practitioner; PCP Internal Medicine; Visit Provider Neurological Surgery
PROC: (CPT 63047; principal; 2024-11-27 07:30)
DX: M48.062 Spinal stenosis, lumbar region with neurogenic claudication (principal); G00-G99 Diseases of the nervous system; D68.9 Coagulation defect, unspecified; M51.16 Intervertebral disc disorders with radiculopathy, lumbar region; M79.605 Pain in left leg; M79.604 Pain in right leg; Z79.899 Other long term (current) drug therapy
CPT/HCPCS: 63047; 81025; C1763; C9250; J0131; J0690; J1100; J1630; J1885; J2003; J2405; J2704; J3010

== ENCOUNTER → 2024-11-27 05:48 | Outpatient (BNV) | payer OTHER, SELFPAY | PROVIDERS: PCP Internal Medicine; Visit Provider Neurological Surgery | DX: M48.062 Spinal stenosis, lumbar region with neurogenic claudication (principal) | CPT/HCPCS: 63047; 99024; 99499 ==

== ENCOUNTER 2024-12-06 09:08 | Outpatient (REF) | payer OTHER, SELFPAY ==
[2024-12-06 10:07] LABS: MANUAL DIFF FLAG NO
[2024-12-06 11:01] LABS: Hematocrit 35.9 % (37.0-47.0); Hemoglobin 12.0 g/dl (12.0-16.0); Imm Gran Abs Auto 0.05 X10*3/uL (0.00-0.03); Imm Gran Pct Auto 0.9 % (0.0-0.4); Lymphocytes Absolute Auto 1.5 X10*3/uL (1.2-4.9); Mean Corpuscular HGB Conc 33.4 g/dl (31.0-35.0); Mean Corpuscular Hemoglobin 29.6 pg (27.0-33.0); Mean Corpuscular Volume 88.6 fL (80.0-98.0); NRBC Abs Auto 0.000 X10*3/uL (0.0-0.012); NRBC Pct Auto 0.0 /100WBC (0.0-0.2); Platelet Count 256 X10*3/uL (160-400); Red Blood Count 4.05 X10*6/uL (4.20-5.50); White Blood Count 5.3 X10*3/uL (4.8-10.8)
[2024-12-06 11:36] LABS: Iron 76 mcg/dL (30-160); Percent Iron Saturation 27 % (15-50); Total Iron Binding Capacity 277 mcg/dL (228-428); Unsaturated Iron Binding 201 ug/dL
== END 2024-12-06 09:09 | disposition home or self-care (01) ==
LOC: HO.LAB 09:08
PROVIDERS: PCP Internal Medicine; Visit Provider Nurse Practitioner Family
DX: M47.816 Spondylosis without myelopathy or radiculopathy, lumbar region (principal); M48.061 Spinal stenosis, lumbar region without neurogenic claudication; D62 Acute posthemorrhagic anemia; R42 Dizziness and giddiness
CPT/HCPCS: 36415; 83540; 85025; 99212

== ENCOUNTER 2024-12-06 09:08 | Outpatient (AMB) | payer OTHER, SELFPAY ==
--- NOTE | 2024-12-06 09:12 | A.OFFPC_ITS ---
Vital Signs 3 12/06/24 09:14 Height 5 ft 5 in Weight 173 lb 8 oz BMI 28.9 BP 110/60 Blood Pressure Location Lt brachial Position Sitting Pulse 90 Pulse Source Pulse Oximeter Temp 97.1 F Temp Source Temporal Artery Scan Pulse Oximetry (%) 98 Oxygen Delivery Method Room Air [place] [facility] [place] Intake Note: Patient is here for hospital discharge follow up. [place] [facility] [place] Permastone Applicator Required: No Paper Stacker: Not Required per policy Accompanied by: Self / Same As Patient Allergies hydrocodone (From Vicodin) Allergy (Intermediate, Verified 12/06/24 09:13) Vomiting latex (Latex) Allergy (Mild, Verified 12/06/24 09:13) RASH carisoprodol Adverse Reaction (Mild, Verified 12/06/24 09:13) NAUSEA & VOMITING, HEADACHES nabumetone Adverse Reaction (Mild, Verified 12/06/24 09:13) Dizziness Tobacco use date assessed: 12/06/24 Dental Screening Dental Screen Date: 05/13/24 HPI HPI Comments 2 History of Present Illness0 Details 49 y/o Female patient who [facility] to [facility] today for HDF. [place] [facility] [place] for Back Surgery. Pt is S/P L3-4 Laminotomy, Partial facetectomy and foraminotomy with use of microscope. She was kept overnight in observation to monitor her progress after blood loss during surgery of about 500cc. It was believed to be likely due to her fish oil in take, or an underlying coagulation disorder which has not been diagnosed. Today Pt c/o Low Blood pressures and feeling dizziness. She does endorse that Dizziness had started prior to surgery - she is waiting to see Vestibular Therapy. [facility] Medical History (Updated 12/06/24 @ 09:49 by Maya Hdz NP) Dizziness Acute blood loss anemia Neck pain HPV (human papilloma virus) infection DDD (degenerative disc disease), lumbar Fatty liver Depression Asthma Syncope and collapse Lumbar stenosis ASCUS with positive high risk HPV cervical Migraine Surgical History (Updated 12/06/24 @ 09:17 by DARYL Spicer) History of back surgery Hx of unilateral oophorectomy Hx of section History of hernia surgery Family History Father HTN (hypertension) Diabetes Mother Diabetes HTN (hypertension) Other Mental health disorder Substance use disorder Social History Household Members: Family Household Members Other:: Daughter Housing: House Are you a primary healthcare technician to a significant other at home: No Do you presently have visiting nurse or other home services: No Alcohol intake: current Alcohol intake frequency: holidays/special occasions only Alcohol type: hard liquor Patient Tobacco Use Status: Never used Tobacco e-Cigarette/Vaping Use: Never Used Second Hand Smoke Exposure: No service: No Current occupational status: unemployed Sexual orientation: Straight/Heterosexual Gender identity: Female Cognitive needs: No Hearing needs: No Vision needs: No Female Reproductive History Menstrual Age of Menarche: 14 Questionnaire PHQ-9 Over the last 2 weeks, how often have you been bothered by any of the following problems? 9. Thoughts that you would be better off or of hurting yourself in some way: not at all Source: Developed by Drs. Dedrick Schaefer, Sobeida Agustin, Harshad La and colleagues, with an educational annabella from [employer]. Thrive Questionnaire Date Thrive assessed: 07/04/24 I am a: Patient What is your living situation today?: I have a steady place to live Within the past 12 months, did the food you bought not last and you didn't have the money to get more?: Never true Within the past 12 months, did you worry whether your food would run out before you got money to buy more?: Never true Do you have trouble paying for medicines?: No Do you have trouble getting transportation to medical appointments?: No Do you have trouble paying your heating and electricity bill?: No Do you have trouble taking care of your child, family member or friend?: No Do you have trouble with day-to-day activities such as bathing, preparing meals, shopping, managing finances, etc.?: No Are you currently unemployed and looking for a job?: No Are you interested in more education?: No Please select the resources that you would like help with: None Currently or been in a relationship where the following occur: No concerns reported THRIVE Score: 0 AUDIT C Alcohol Use Questionnaire (AUDIT-C) 1. How often do you have a drink containing alcohol?: Monthly or less Total Score: 1 ADDISON-7 AMB Questionnaire ADDISON-7 Date ADDISON - 7 assessed: 05/13/24 Feeling nervous, anxious, or on edge: 0 = Not at all Not being able to stop or control worryin = Not at all Worrying too much about different things: 0 = Not at all Trouble relaxin = Several days Being so restless that it is hard to sit still: 1 = Several days Becoming easily annoyed or irritable: 0 = Not at all Feeling afraid as if something awful might happen: 0 = Not at all Total ADDISON-7 score (0-4 normal; 5-9 mild; 10-14 moderate; 15-21 severe): 2 Source: Developed by Drs. Dedrick Schaefer, Sobeida Agustin, Harshad La and colleagues, with an educational annabella from [employer]. Review of Systems Const All systems reviewed & are unremarkable except as noted in HPI and below Physical exam (Primary Care) Vital Signs: Last Vital Signs Temp 97.1 F 12/06/24 09:14 Pulse 90 12/06/24 09:14 BP 110/60 12/06/24 09:14 Pulse Ox 98 12/06/24 09:14 Oxygen Delivery Method Room Air 12/06/24 09:14 BMI result Body Mass Index 28.9 Tobacco/Smoking Status: Tobacco use Status Tobacco use date assessed 12/06/24 12/06/24 09:18 Patient Tobacco Use Status Never used Tobacco 12/06/24 09:18 e-Cigarette/Vaping Use Never Used 12/06/24 09:18 Thrive Assessment: Date of Thrive Assessment Date Thrive assessed 07/04/24 12/06/24 09:18 Currently or been in a relationship where the following occur: No concerns reported Const General: no acute distress Nutritional Appearance: well nourished Orientation/consciousness: patient oriented x3 Resp Effort & Inspection: normal respiratory effort Auscultation: clear to auscultation bilaterally Cardio Heart sounds: S1 normal heart sound present and S2 normal heart sound present Back/Spine/Pelvis Back/spine/pelvis image: 2 1. Large Surgical Wound covered in Steris - healing well. Dry no signs of infection. Small Hematoma present. Mild TTP. Neuro General: patient oriented x3, gait normal and moves all extremities Motor exam (neuro): 5/5 motor strength present throughout Psych Speech and movement: Normal speech and movement present Coding Level of Care Code Est Pt Level 4 (22774) Diagnoses Lumbar spondylosis M47.816 Spinal stenosis of lumbar region, unspecified whether neurogenic claudication present M48.061 Neurogenic claudication status: unspecified Acute blood loss anemia D62 Dizziness R42 Time Spent (min) 20 Assessment & Plan Assessment & Plan (1) Lumbar spondylosis: Code(s): M47.816 - Spondylosis without myelopathy or radiculopathy, lumbar region Category: Medical Plan: Stable. Has Post-op Appointment with NeuroSurgery on 12/18. (2) Lumbar stenosis: Code(s): M48.061 - Spinal stenosis, lumbar region without neurogenic claudication Category: Medical Qualifiers: Neurogenic claudication status: unspecified Qualified Code(s): M48.061 - Spinal stenosis, lumbar region without neurogenic claudication Plan: Stable. Has Post-op Appointment with NeuroSurgery on 12/18. (3) Acute blood loss anemia: Code(s): D62 - Acute posthemorrhagic anemia Category: Medical Plan: Pt had blood Lost during her Back surgery. Concern for low HCT/Hgb Will order Iron panel with CBC (4) Dizziness: Code(s): R42 - Dizziness and giddiness Category: Medical Plan: Pending Vestibular Therapy Ordered Vitamin D panel to r/o Deficiency. Orders: Orders 2 Complete Blood Count Auto Diff Today D62 - Acute posthemorrhagic anemia, R42 - Dizziness and giddiness IRON PROFILE Today D62 - Acute posthemorrhagic anemia, R42 - Dizziness and giddiness Vitamin D 1,25 dihydroxy Today R42 - Dizziness and giddiness
[2024-12-06 09:14] VITALS: BP 110/60; PULSE 90; TEMP 36.2; O2SAT 98; BMI 28.9
--- OUTSIDE RECORDS SUMMARY | 2024-12-06 09:23 | XMS_ITS | Clinical Summary ---
Author Organization [facility] ity Address [address] [place] [address] Care Team Providers Care Paper Finisher Name Role Phone Unavailable Primary Care Provider Unavailabl e Social History Tobacco Use Types Packs/Day Years Used Date Smoking Tobacco: Never Assessed Comments Unknown Sex and Gender Information Value Date Recorded Sex Assigned at Not on file Legal Sex Female 12:09 AM EST Gender Identity Not on file Sexual Orientation Not on file Plan of Treatment Upcoming Encounters Date Type Department Care Team ([facility] st Contact Info) Description 02/18/2025 1:00 PM EDT Appointment [facility] Xray [address] [place] [address] Health Maintenance Due Date Last Done Comments Breast Cancer Screening 1975 DTaP,Tdap,and Td Vaccines (1 - Tdap) 07/30/1994 Hepatitis B Vaccines (1 of 3 - 19+ 3-dose series) 07/30/1994 Cervical Cancer Screening: P ap Smear 07/30/1996 COVID-19 Vaccine ( - 2023-2 5 season) 2024 Depression Screening 05/08/2024 Colorectal Cancer Screening: Colonoscopy 11/25/2024 HIV Screening 11/25/2024 Hepatitis C Screening 11/25/2024 Social Influencers of Health Screening 11/25/2024 Influenza Vaccine (#1) 2025 HIB Vaccines Aged Out No longer eligi ble based on patient's age to complete this topic HPV Vaccines Aged Out No longer eligi ble based on patient's age to complete this topic Hepatitis A Vaccines Aged Out No long er eligible based on patient's age to complete this topic IPV Vaccines Aged Out No longer eligi ble based on patient's age to complete this topic MMR Vaccines Aged Out No longer eligi ble based on patient's age to complete this topic Meningococcal ACWY Vaccine Aged Out N o longer eligible based on patient's age to complete this topic Meningococcal B Vaccine Aged Out No l onger eligible based on patient's age to complete this topic Pneumococcal Vaccine: Pediat rics (0 to 5 Years) and At-Risk Patients (6 to 49 Years) Aged Out No longer eligible b ased on patient's age to complete this topic RSV Immunization Patients Un sushma 20 months Aged Out No longer eligible b ased on patient's age to complete this topic Varicella Vaccines Aged Out No longer eligible based on patient's age to complete this topic
--- OUTSIDE RECORDS SUMMARY | 2024-12-06 09:23 | XMS_ITS | Patient Health Record ---
Author Organization [facility] Address [address] [place] [address] Care Team Providers Care Remittance Clerk Name Role Phone Haider Styles MD Primary Care Provider Etienne Geronimo [phone] Allergies Allergen (clinical drug ingredient) Drug/Non Drug [...] Status Risk Notes Problem Acquired hallux valgus (18641991) Hallux valgus (acquired), left foot (M20.12) Active confirmed Problem Acquired hallux valgus (42169275) Hallux valgus (acquired), right foot (M20.11) Active confirmed Plan Of Treatment Pending Test Test Name Order Date X ray : Foot, right 2V 11/16/2016 Insurance Providers Payer Name Payer Address Payer Phone Subscriber Number Group Number Insured Name Patient Relationship to Insured Coverage Start Date Coverage End Date [facility] [address] [facility] [place] [address] [phone] [id number] Kary Stevens Self - patient is the insured Medical (General) History Medical History History ICD Code asthma Back,Hip,and Knee pain Headaches Chicken pox STDs Surgical History Surgery Date(Month/Year) DERMOSIS LEFT OVARY 2006
== END 2024-12-06 11:27 | disposition home or self-care (01) ==
LOC: HO.HMCH 09:09
PROVIDERS: PCP Internal Medicine; Visit Provider Nurse Practitioner Family
DX: M47.816 Spondylosis without myelopathy or radiculopathy, lumbar region (principal); M48.061 Spinal stenosis, lumbar region without neurogenic claudication; D62 Acute posthemorrhagic anemia; R42 Dizziness and giddiness

== ENCOUNTER 2024-12-18 14:32 | Outpatient (AMB) | payer OTHER, SELFPAY ==
--- OUTSIDE RECORDS SUMMARY | 2024-12-18 14:44 | XMS_ITS | Patient Health Record ---
Author Organization [facility] Address [address] [place] [address] Care Team Providers Care Edge Finisher Name Role Phone Haider Styles MD Primary Care Provider Etienne Geronimo [phone] Allergies Allergen (clinical drug ingredient) Drug/Non Drug [...] Status Risk Notes Problem Acquired hallux valgus (91462734) Hallux valgus (acquired), left foot (M20.12) Active confirmed Problem Acquired hallux valgus (48230323) Hallux valgus (acquired), right foot (M20.11) Active confirmed Plan Of Treatment Pending Test Test Name Order Date X ray : Foot, right 2V 11/16/2016 Insurance Providers Payer Name Payer Address Payer Phone Subscriber Number Group Number Insured Name Patient Relationship to Insured Coverage Start Date Coverage End Date [employer] [address] [place] [address] [phone] [id number] Kary Stevens Self - patient is the insured Medical (General) History Medical History History ICD Code asthma Back,Hip,and Knee pain Headaches Chicken pox STDs Surgical History Surgery Date(Month/Year) DERMOSIS LEFT OVARY 2006
--- OUTSIDE RECORDS SUMMARY | 2024-12-18 14:44 | XMS_ITS | Clinical Summary ---
Author Organization [facility] ity Address [address] [place] [address] Care Team Providers Care Hem Inspector Name Role Phone Unavailable Primary Care Provider Unavailabl e Social History Tobacco Use Types Packs/Day Years Used Date Smoking Tobacco: Never Assessed Comments Unknown Sex and Gender Information Value Date Recorded Sex Assigned at Not on file Legal Sex Female 12:09 AM EST Gender Identity Not on file Sexual Orientation Not on file Plan of Treatment Upcoming Encounters Date Type Department Care Team ([facility] st Contact Info) Description 02/18/2025 1:00 PM EDT Appointment [facility] Xray [address] [place] [address] Health Maintenance Due Date Last [...]
--- NOTE | 2024-12-18 14:55 | HO.SPINEOV ---
Intake Visit Reasons: 1st post op Intake Note: Ms. Li is here today for her 1st post-op visit. 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 She underwent an L3-4 decompression 3 weeks ago for neurogenic claudication symptoms. She was originally scheduled for L3-4 and L4-5 at perioperatively she had more than usual bleeding and therefore I decided to only treat the most severe level. Fortunately, this was the right decision as her neurogenic claudication symptoms have disappeared. The incision is healed. She is slowly returning to her activities. I discharged her from further follow-up. Thank you for allowing me take care of your patient. Kailash Small MD, PhD Spine Fellowship Trained Neurosurgeon Director, [facility] Coding Level of Care Code Global (74589) Diagnoses Status post lumbar spine surgery for decompression of spinal cord Z98.890
== END 2024-12-18 15:25 | disposition home or self-care (01) ==
LOC: HO.HNS 14:33
PROVIDERS: PCP Internal Medicine; Visit Provider Neurological Surgery
DX: Z98.890 Other specified postprocedural states (principal)
CPT/HCPCS: 99024

== ENCOUNTER → 2024-12-18 14:32 | Outpatient (BNVA) | payer OTHER, SELFPAY | PROVIDERS: PCP Internal Medicine; Visit Provider Neurological Surgery | DX: Z98.890 Other specified postprocedural states (principal) | CPT/HCPCS: 99212 ==

== ENCOUNTER 2025-02-25 09:08 | Outpatient (AMB) | payer OTHER, SELFPAY ==
[2025-02-25 09:12] VITALS: BP 118/74; PULSE 94; BMI 30.2
--- NOTE | 2025-02-25 09:12 | MHC.OFFVIS ---
Vital Signs 02/25/25 09:12 Height 5 ft 5 in Weight 181 lb 3.52 oz BMI 30.2 BMI Reason not done Patient refused/unable BP 118/74 Blood Pressure Location Lt brachial Position Sitting Pulse 94 Pulse Source Pulse Oximeter Intake Visit Reasons: s/p tilt 02/18 at [facility] Correctional Security Officer Required: No Accompanied by: Self / Same As Patient Allergies hydrocodone (From Vicodin) Allergy (Intermediate, Verified 02/25/25 09:15) Vomiting latex (Latex) Allergy (Mild, Verified 02/25/25 09:15) RASH carisoprodol Adverse Reaction (Mild, Verified 02/25/25 09:15) NAUSEA & VOMITING, HEADACHES nabumetone Adverse Reaction (Mild, Verified 02/25/25 09:15) Dizziness Medication List - Last Reconciled 02/25/25 by Cuauhtemoc Augustine MD albuterol sulfate 90 mcg/actuation (Ventolin HFA) 1 inh inhalation QID PRN 30 days ascorbate calcium (vitamin C) 500 mg PO DAILY cetirizine (All Day Allergy (cetirizine)) 10 mg PO DAILY PRN cholecalciferol (vitamin D3) 10 mcg PO DAILY multivitamin 1 tab PO DAILY HPI Comments Details: Kary returns for follow-up. In October, she was seen in the hospital in consultation regarding syncopal episode. In that instance, she was found to have sinus tachycardia on orthostatic testing. Subsequently, she underwent a comprehensive workup including echocardiogram, stress test as well as tilt-table testing. She states that she still gets these episodes where she feels the symptoms that she describes as dizziness, head tightness, darkening of vision, sensation of varying a tight vest during activities like walking and climbing. [facility] Medical History (Updated 02/25/25 @ 11:37 by Cuauhtemoc Augustine MD) Dizziness Acute blood loss anemia Neck pain HPV (human papilloma virus) infection DDD (degenerative disc disease), lumbar Fatty liver Depression Asthma Syncope and collapse Lumbar stenosis ASCUS with positive high risk HPV cervical Migraine Surgical History History of back surgery Hx of unilateral oophorectomy Hx of section History of hernia surgery Family History Father HTN (hypertension) Diabetes Mother Diabetes HTN (hypertension) Other Mental health disorder Substance use disorder Social History Household Members: Family Household Members Other:: Daughter Housing: House Are you a primary career and guidance counselor to a significant other at home: No Do you presently have visiting nurse or other home services: No Alcohol intake: current Alcohol intake frequency: holidays/special occasions only Alcohol type: hard liquor Patient Tobacco Use Status: Never used Tobacco e-Cigarette/Vaping Use: Never Used Second Hand Smoke Exposure: No service: No Current occupational status: unemployed Sexual orientation: Straight/Heterosexual Gender identity: Female Cognitive needs: No Hearing needs: No Vision needs: No Female Reproductive History Menstrual Age of Menarche: 14 Review of Systems Const Denies daytime sleepiness, Denies difficulty sleeping, Denies snoring, Denies stops breathing during sleep and Denies weakness Card Denies chest pain, Denies rapid heart rate, Denies irregular heart rhythm, Denies claudication, Denies leg edema, Denies lightheadedness, Denies palpitations, Denies dyspnea, Denies dyspnea on exertion, Denies orthopnea, Denies paroxysmal nocturnal dyspnea and Denies slow heart rate Resp Denies cough, Denies dyspnea, Denies dyspnea on exertion and Denies snoring GI Reports no additional complaints, Denies hematochezia, Denies change in stool character and Denies dyspepsia Musc Denies abnormal gait, Denies muscle weakness and Denies numbness Neuro Denies abnormal gait, Denies numbness and Denies weakness Endo Denies palpitations Physical Exam Vital Signs: Last Vital Signs Pulse 94 02/25/25 09:12 BP 118/74 02/25/25 09:12 BMI result Body Mass Index 30.2 Const General: comfortable and no acute distress Orientation/consciousness: patient oriented x3 HEENT Other: Unremarkable Head: Yes normal to inspection Neck Neck: Yes normal visual inspection Chest Chest palpation & inspection: normal inspection of the chest Resp Auscultation: clear to auscultation bilaterally Cardio Palpation: normal PMI Heart sounds: S1 normal heart sound present, S2 normal heart sound present, no gallops, no murmurs and no rubs GI Palpation (GI): Soft to palpation Back/Spine/Pelvis Other: unremarkable Skin General skin exam: no rashes or lesions noted Neuro General: patient oriented x3 Extrem General: Yes normal to inspection Psych Mental Status: mental status grossly normal Assessment & Plan Assessment & Plan (1) POTS (postural orthostatic tachycardia syndrome): Code(s): G90.A - Postural orthostatic tachycardia syndrome [POTS] Category: Medical (2) Dysautonomia: Code(s): G90.1 - Familial dysautonomia [] Category: Medical Plan Cardiac studies reviewed. In the echocardiogram, LVEF is 64%. Mild septal hypertrophy. No wall motion abnormalities. No significant valvular findings. In the exercise stress echocardiogram, she was able to do 11 METS on Doug protocol and reached 89% of target heart rate. She had described shortness of breath and tightness. No clear EKG evidence of ischemia. Echocardiographic component was normal. In the tilt-table test, baseline heart rate was 82/Min and went up to 124/Min with 70 degree tilt and thought to be consistent with dysautonomia/POTS. BNP level is normal. Troponins are normal. Overall, symptoms possibly from POTS but not entirely clear. We discussed about this at length. Could liberalize salt/water intake and we can try some beta-blockers to see if that helps. She agrees. Her blood pressure is already in the low normal range and hence we can try a small dose of metoprolol. Total time spent including review of data, counseling, documentation, coordination of care-32 minutes. Medications: New metoprolol succinate ER (Toprol XL) 25 mg PO DAILY 90 tabs 1RF Coding Level of Care Code Est Pt Level 4 (61971) Complex EM visit Add On G2211 Diagnoses POTS (postural orthostatic tachycardia syndrome) G90.A Dysautonomia G90.1
--- OUTSIDE RECORDS SUMMARY | 2025-02-25 09:57 | XMS_ITS | Patient Health Record ---
[facility] Address [address] [place] [address] Care Team Providers Care Vac Press Operator Name Role Phone Haider Styles MD Primary Care Provider Etienne Horta [phone] Allergies Allergen (clinical drug ingredient) Drug/Non Drug [...] Status Risk Notes Problem Acquired hallux valgus (42770758) Hallux valgus (acquired), left foot (M20.12) Active confirmed Problem Acquired hallux valgus (42325722) Hallux valgus (acquired), right foot (M20.11) Active confirmed Plan Of Treatment Pending Test Test Name Order Date X ray : Foot, right 2V 11/16/2016 Insurance Providers Payer Name Payer Address Payer Phone Subscriber Number Group Number Insured Name Patient Relationship to Insured Coverage Start Date Coverage End Date [facility] [address] [place] [address] [phone] [id number] Kary Stevens Self - patient is the insured Medical (General) History Medical History History ICD Code asthma Back,Hip,and Knee pain Headaches Chicken pox STDs Surgical History Surgery Date(Month/Year) DERMOSIS LEFT OVARY 2006
== END 2025-02-25 09:35 | disposition home or self-care (01) ==
LOC: HO.HCS 09:09
PROVIDERS: PCP Internal Medicine; Visit Provider Internal Medicine
DX: G90.A Postural orthostatic tachycardia syndrome [POTS] (principal); G90.1 Familial dysautonomia [Riley-Day]
CPT/HCPCS: 99214

== ENCOUNTER → 2025-02-25 09:08 | Outpatient (BNVA) | payer OTHER, SELFPAY | PROVIDERS: PCP Internal Medicine; Visit Provider Internal Medicine | DX: G90.A Postural orthostatic tachycardia syndrome [POTS] (principal); G90.1 Familial dysautonomia [Riley-Day] | CPT/HCPCS: 99212 ==